=== PATIENT | male | born 1955 | race Caucasian/White ===

== ENCOUNTER 2020-02-19 12:05 | Emergency (ER) | payer MEDICARE, MEDICAID, SELFPAY ==
--- NOTE | ~2020-02-19 | XR_ITS ---
XR chest 1V portable DATE: 02/19/2020 23:04 INDICATION: Shortness of breath. History of COPD. TECHNIQUE: 2 portable AP views on 02/19/2020 at 2257 hours COMPARISON: None FINDINGS: Prominent hilar areas, likely due to prominent pulmonary arteries, suggesting pulmonary hyp ertension. Differential diagnosis includes hilar mass lesion or adenopathy. Comparison with prior [address] radiographs would be helpful; if not available, consider CT thorax. No pulmonary consolidation, pleural effusion, pulmonary vascular congestion or pneumothorax is eviden t. Diffuse osteopenia. IMPRESSION: Prominent edgard likely due to pulmonary artery hypertension; recommend comparison with jonah or chest radiographs or consider CT thorax examination to exclude any possible hilar mass lesion or l ymphadenopathy. Reviewed, dictated and finalized at location A. OYMENT TRAINER IMPRESSION: Prominent edgard likely due to pulmonary artery hypertension; recomme nd comparison with prior chest radiographs or consider CT thorax examination to exclude any possible hilar mass lesion or lymphadenopathy.
[2020-02-19 12:27] VITALS: BP 136/110; PULSE 94; RESP 18; TEMP 36.8; O2SAT 94
--- NOTE | 2020-02-19 12:35 | ED.PSYCH ---
HPI - Psych General Chief Complaint: Psychiatric Symptoms <Jada Florentino MD - Last Filed: 02/20/20 18:49> Stated Complaint: PSYCH <Jada Florentino MD - Last Filed: 02/20/20 18:49> Time Seen by Provider: 02/19/20 12:35 <Jada Florentino MD - Last Filed: 02/20/20 18:49> Source: patient and EMS <Jada Florentino MD - Last Filed: 02/20/20 18:49> Mode of arrival: EMS <Jada Florentino MD - Last Filed: 02/20/20 18:49> Limitations: no limitations <Jada Florentino MD - Last Filed: 02/20/20 18:49> History of Present Illness HPI Narrative: Patient is a 64-year-old gentleman with a history of longstanding mental illness, schizophrenia, bipolar disorder, depression, currently taking lithium, Klonopin, who presents for evaluation of suicidal ideation, auditory hallucinations. Patient has not been sleeping, reporting that he may take pills to kill himself. He states he is hearing satanic voices that are hateful, patient states he is God and has total authority. Patient has some insight into his mental illness, states he feels acutely psychotic. Patient is denying any headache, chest pain, abdominal pain or shortness of breath. No recent fever or chills. Per his sister who helps to care for him, he has been hospitalized many times since 1978 in various states for mental illness. He recently had his lithium dose decreased which is what seems to exacerbate his symptoms approximately a month ago. Patient follows with Andreea Cao at [facility] psychiatry. <Jada Florentino MD - Last Filed: 02/20/20 18:49> Related Data Home Medications: Home Medications Medication Instructions Recorded Confirmed Austedo 12 mg PO TID 02/19/20 02/21/20 amlodipine 5 mg PO DAILY 02/19/20 02/19/20 atorvastatin 20 mg PO DAILY 02/19/20 02/19/20 budesonide-formoterol [Symbicort] 2 puff INHALATION Q12H 02/19/20 02/19/20 clonazepam 1 mg PO HS 02/19/20 02/19/20 gabapentin 100 mg PO DAILY 02/19/20 02/19/20 icosapent ethyl [Vascepa] g PO 02/19/20 lisinopril 10 mg PO DAILY 02/19/20 02/19/20 lithium carbonate 300 mg PO HS 02/19/20 02/19/20 memantine-donepezil [Namzaric] 1 cap PO HS 02/19/20 02/19/20 quetiapine 50 mg PO HS 02/19/20 02/19/20 quetiapine 100 mg PO HS 02/19/20 02/19/20 sertraline 100 mg PO DAILY 02/19/20 02/19/20 sitagliptin [Januvia] 50 mg PO DAILY 02/19/20 02/19/20 tramadol 50 mg PO HS 02/19/20 02/19/20 varicella-zoster gE-AS01B (PF) IM 02/19/20 [Shingrix (PF)] zolpidem mg 02/19/20 <Jada Florentino MD - Last Filed: 02/20/20 18:49> Allergies/Adverse Reactions: Allergies Allergy/AdvReac Type Severity Reaction Status Date / Time codeine Allergy Headache Verified 02/19/20 14:03 <Jada Florentino MD - Last Filed: 02/20/20 18:49> Review of Systems Review of Systems: Narrative: CONSTITUTIONAL: Denies fever, chills, or sweats. EYES: Denies visual changes, redness, or discharge. ENT: Denies rhinorrhea, congestion, sore throat, or otalgia. CARDIOVASCULAR: Denies chest pain, palpitations, or edema. RESPIRATORY: Denies cough or dyspnea. GASTROINTESTINAL: Denies abdominal pain, nausea, vomiting, or diarrhea. GENITOURINARY: Denies dysuria or hematuria. SKIN: Denies rash or itching. MUSCULOSKELETAL: Denies back pain, joint pain, or myalgia. NEUROLOGIC: Denies headache, numbness, or weakness. PSYCHIATRIC: Reports anxiety, depression, auditory hallucinations, suicidal thoughts <Jada Florentino MD - Last Filed: 02/20/20 18:49> PMFSH Past Medical History Medical History: Medical History Anxiety Depression Diabetes Hypertension Schizophrenia <Jada Florentino MD - Last Filed: 02/20/20 18:49> Social History Social History: Social History (Updated 02/19/20 @ 13:00 by Jada Florentino MD) Smoking status: Never smoker Alcohol intake: never Substance use: never Gender identity (if verbalized by the susannah
--- NOTE | 2020-02-19 12:36 | ECG_ITS ---
Measurements Intervals [place] Rate: 85 P: 78 NC: 171 QRS: 256 QRSD: 173 T: 54 QT: 415 QTc: 494 Interpretive Statements SINUS RHYTHM RIGHT AXIS DEVIATION RIGHT BUNDLE BRANCH BLOCK ABNORMAL ECG Electronically Signed On 02-19-2020 13:34:51 LABOR AND DELIVERY NURSE by Cornelius Ace D.O.
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
[2020-02-19] MEDS: clonazePAM (*CRX) 0.5 MG TABLET 2 MG PO (13:20)
[2020-02-19 13:22] LABS: Basophils Absolute Auto 0.1 K/mm3 (0.0-0.1); Basophils Percent Auto 0.9 % (0.2-1.2); Eosinophils Absolute Auto 0.2 K/mm3 (0-0.3); Eosinophils Percent Auto 2.6 % (0-4.4); Hematocrit 45.3 % (42.0-52.0); Hemoglobin 14.8 g/dL (14.0-18.0); Immature Granulocyte Absolute 0.07 K/mm3 (0.00-0.031); Immature Granulocyte Percent A 0.8 % (0-0.5); Lymphocytes Absolute Auto 1.82 K/mm3 (0.9-3.2); Lymphocytes Percent Auto 20.1 % (18.3-44.2); Mean Corpuscular HGB Conc 32.7 g/dl (32-36); Mean Corpuscular Hemoglobin 30.4 pg (26-34); Mean Platelet Volume 9.2 fl (7.4-10.4); Monocytes Percent Auto 10.7 % (2.6-8.5); Neutrophils Absolute Auto 5.9 K/mm3 (1.3-6.7); Neutrophils Percent Auto 64.9 % (45.5-73.1); Platelet Count Result 203 k/mm3 (150-375); Red Blood Count 4.87 M/mm3 (4.6-6.20); Red Cell Distribution Width 13.7 % (11.5-14.5); White Blood Count 9.1 K/mm3 (4.5-10.0)
[2020-02-19 13:33] LABS: Potassium 4.4 mmol/L (3.4-5.0)
[2020-02-19 13:36] LABS: Add Urine Microscopic? NO; Appearance Urine Clear (Clear); Bilirubin Urine Negative (Negative); Blood Urine Negative (Negative); Color Urine Straw (Yellow); Glucose Urine UA Negative (Negative); Ketones Urine Negative (Negative); Leukocyte Esterase Ur Negative LEU/UL (Negative); Mucus Urine Rare /lpf; Nitrate Urine Negative (Negative); Protein Urine Negative (Negative); RBC Urine 0-2 /hpf (0-2); Squamous Epithelial Cell Urine Few /hpf (Few); Urobilinogen Urine Negative mg/dL (<2.0); WBC Urine 0-3 /hpf
[2020-02-19 13:38] LABS: Amphetamine Screen Urine Negative (Negative); Barbiturate Screen Urine Negative (Negative); Benzodiazepines Screen Urine Negative (Negative); Cannabinoid Screen Urine Positive (Negative); Cocaine Screen Urine Negative (Negative); Methadone Screen Urine Negative (Negative); Opiate Screen Urine Negative (Negative); Phencyclidine Screen Urine Negative (Negative)
--- NOTE | 2020-02-19 13:44 | PC.NURSE ---
Meal taken into pts room
[2020-02-19 13:46] LABS: Anion Gap 9 mmol/L (8-16); Blood Urea Nitrogen 30 mg/dL (9-20); Calcium 9.7 mg/dL (8.4-10.2); Carbon Dioxide 30 mmol/L (22-30); Chloride 101 mmol/L (98-107); Estimated CRCL calculation 62 ml/min; Estimated Glomerular Filt Rate 51; Glucose 100 mg/dL (75-110); Sodium 140 mmol/L (137-145)
--- NOTE | 2020-02-19 14:02 | PC.NURSE ---
PTs sister is Claudia Beltran. She would like to be updated on pt [phone]
[2020-02-19 14:06] LABS: Lithium < 0.2 mmol/L (0.6-1.2)
--- NOTE | 2020-02-19 14:18 | PC.NURSE ---
Pt complete 100% of lunch. Covid swabbed pt
[2020-02-19 14:28] LABS: Thyroid Stimulating Hormone 0.697 uIU/mL (0.465-4.680)
--- NOTE | 2020-02-19 15:33 | PC.NURSE ---
PTs primary care DrJose is Dr. Madera [phone]
--- NOTE | 2020-02-19 16:27 | PC.NURSE ---
Pt at door tearful stating that he doesnt know why he is here. Redirected pt and gave him a cup of water
--- NOTE | 2020-02-19 17:05 | PC.NURSE ---
Pt is medically cleared Crisis was called. Spoke with Flower
[2020-02-19] MEDS: NICOTINE (*PBKC) 21 MG PATCH 1 PATCH TRANSDERM (17:48)
--- NOTE | 2020-02-19 18:17 | PC.NURSE ---
Crisis here to see pt.
--- NOTE | 2020-02-19 18:21 | PC.NURSE ---
Pt at door telling RN they dont want me. The psych people dont want me. Can you call my sister and let her know i am in process for getting out. Crisis is here and states that was not said.
[2020-02-19] MEDS: ALBUTEROL SULFATE NEB 2.5 MG/0.5 ML INH 5 MG INHALATION ×2 (20:18→23:35)
[2020-02-19 20:19] VITALS: PULSE 92; RESP 20
[2020-02-19 20:28] VITALS: PULSE 98; RESP 22
--- NOTE | 2020-02-19 20:34 | PC.NURSE ---
spoke with patients sister at length on phone. she verbalized that she only wants patient placed in facility that is close to her [place] in [place], [place]. this nurse tried to explain that patient can only be sent to a [facility] hospital that has an open bed for an involuntary admission and that patient could not be taken outside of the [facility]. patients sister reports that he can not go to a hospital that is far from her home
[2020-02-19] MEDS: QUEtiapine FUMARATE 25 MG TABLET 150 MG PO (20:43)
--- NOTE | 2020-02-19 21:19 | PC.NURSE ---
Chart, petition, cert etc faxed to [facility].
[2020-02-19] MEDS: lisinopriL 10 MG TABLET PO (21:46)
[2020-02-19 21:49] VITALS: BP 163/84; PULSE 96; RESP 20; O2SAT 88
--- NOTE | 2020-02-19 21:59 | PC.NURSE ---
spoke with alejo at [facility] mental health intake. faxed requested paperwork. no beds at this time. patient is being placed on a wait list
[2020-02-19] MEDS: predniSONE 20 MG TABLET 60 MG PO (22:36)
[2020-02-19 23:36] VITALS: PULSE 88; RESP 20
[2020-02-19] MEDS: IPRATROPIUM BR 0.02% INH SOLN 0.5 MG/2.5 ML VIAL INHALATION (23:36)
[2020-02-19 23:44] VITALS: PULSE 90; RESP 20
[2020-02-20] VITALS (9 sets, daily range): BP systolic 112–157; BP diastolic 59–95; PULSE 78–89; RESP 20–22; O2SAT 92–95
[2020-02-20 00:14] LABS: Ethanol < 10 mg/dL (<10)
[2020-02-20 01:02] LABS: SARS-CoV-2 RNA PCR Negative
--- NOTE | 2020-02-20 02:32 | PC.NURSE ---
Allan Stock returned fax, requesting more information and wants COVID test results before proceeding with intake process.
[2020-02-20] MEDS: IPRATROPIUM BR 0.02% INH SOLN 0.5 MG/2.5 ML VIAL INHALATION ×2 (05:44→13:51)
[2020-02-20] MEDS: ALBUTEROL SULFATE NEB 2.5 MG/3 ML INH 1.25 MG INHALATION (05:45)
--- NOTE | 2020-02-20 10:11 | PC.NURSE ---
pt calling his sister isaak
[2020-02-20] MEDS: ALBUTEROL SULFATE NEB 2.5 MG/0.5 ML INH 5 MG INHALATION (13:51)
[2020-02-20] MEDS: clonazePAM (*CRX) 0.5 MG TABLET 1 MG PO (17:14)
[2020-02-20] MEDS: ALBUTEROL SULFATE NEB 2.5 MG/0.5 ML INH INHALATION (20:02)
[2020-02-20] MEDS: QUEtiapine FUMARATE 25 MG TABLET 50 MG PO (21:08)
[2020-02-20] MEDS: lisinopriL 10 MG TABLET PO (21:09)
[2020-02-20] MEDS: LITHIUM CARBONATE 300 MG CAPSULE PO (21:09)
--- NOTE | 2020-02-20 21:16 | PC.NURSE ---
[facility] advised no bed available.
--- NOTE | 2020-02-20 21:20 | PC.NURSE ---
called crisis and they advised the will keep look for a bed , and will advise
[2020-02-21 01:43] VITALS: BP 155/89; PULSE 82; RESP 20; O2SAT 95
--- NOTE | 2020-02-21 04:32 | PC.NURSE ---
lat entry fax to [facility] pending drJose see chart 0700, & then makes a decision on admitt.
[2020-02-21] MEDS: clonazePAM (*CRX) 0.5 MG TABLET 1 MG PO ×2 (04:43→18:50)
[2020-02-21 04:44] VITALS: BP 149/85; PULSE 84; RESP 20; O2SAT 94
[2020-02-21] MEDS: SERTRALINE HCL 50 MG TABLET 100 MG PO (08:41)
[2020-02-21] MEDS: MEMANTINE 5 MG TABLET PO (08:42)
[2020-02-21] MEDS: ATORVASTATIN 20 MG TABLET PO (08:42)
[2020-02-21] MEDS: amLODIPine BESYLATE 5 MG TABLET PO (08:42)
[2020-02-21 08:46] VITALS: BP 155/89; PULSE 73; RESP 18; O2SAT 95
[2020-02-21] MEDS: ALBUTEROL SULFATE (*SP) AEROSOL 1 PUFF 6 PUFF INHALATION ×3 (09:03→17:20)
--- NOTE | 2020-02-21 11:30 | PC.NURSE ---
Report received from LENNY Sanchez. This RN to continue care. Pt asleep on bed at present time.
--- NOTE | 2020-02-21 13:02 | PC.NURSE ---
Lunch tray given. Pt denies further needs at present.
--- NOTE | 2020-02-21 14:13 | PC.NURSE ---
Pt updated that are awaiting approval to go to [facility]. Pt denies needs at present, has gone to bathroom and changed his diaper. Pt noted to be singing, states I'm singing to get out of here and to get me psychiatric help. This place is making me worse keeping me in this box .
--- NOTE | 2020-02-21 17:41 | PC.NURSE ---
pt ambulatory to phone to speak with sister Laureen. Pt's sister is wishing to release the patient to her so she can take the patient to [facility] where she has secured a bed for the patient. Explained that we cannot release the patient to her but that I will contact Crisis and relay the information that pt is willing to go to [facility].
--- NOTE | 2020-02-21 17:45 | PC.NURSE ---
Call to Crisis, spoke to Kylah. Kylah made aware of what patient's sister had reported to this RN, that the patient is willing to go voluntarily to [facility] psych unit. Kylah reports that at this time they're still awaiting bed placement at [facility] after discharges in the am. Kylah states that she will attempt to contact [facility] and will let us know what transpires.
--- NOTE | 2020-02-21 19:28 | PC.NURSE ---
Crisis contacted, no answer. Message left on identifying voicemail that pt's petition at 1914 and that they need to come out and reevaluate. Report to LENNY Gurrola, to continue care.
--- NOTE | 2020-02-21 23:12 | PCRCNOTE ---
Window of time for administration has passed. See next scheduled administration.
[2020-02-22] MEDS: ALBUTEROL SULFATE (*SP) AEROSOL 1 PUFF 6 PUFF INHALATION ×2 (06:09→11:57)
--- NOTE | 2020-02-22 07:36 | PC.NURSE ---
Report received. Breakfast delivered to patient. Pt jovial, laughing intermittently, singing and humming to himself. Pt noted to have several pieces of paper around him, states God and I write each other. It helps when I can't get my words out .
[2020-02-22 07:44] VITALS: BP 161/98; PULSE 76; RESP 19; TEMP 36.3; O2SAT 97
[2020-02-22] MEDS: clonazePAM (*CRX) 0.5 MG TABLET 1 MG PO (07:49)
[2020-02-22] MEDS: SERTRALINE HCL 50 MG TABLET 100 MG PO (08:51)
[2020-02-22] MEDS: amLODIPine BESYLATE 5 MG TABLET PO (08:51)
[2020-02-22] MEDS: MEMANTINE 5 MG TABLET PO (08:52)
[2020-02-22] MEDS: ATORVASTATIN 20 MG TABLET PO (08:52)
--- NOTE | 2020-02-22 10:17 | PC.NURSE ---
Maria R from crisis states that the patient does not meet admission criteria at this time. Awaiting to hear from [facility]. Maria R preparing to contact pt's sibling Claudia regarding plan of care.
--- NOTE | 2020-02-22 10:49 | PC.NURSE ---
Maria R spoke with pt's sister for an extensive period and then into speak with the patient again. Awaiting also to hear from [facility] regarding bed availability.
--- NOTE | 2020-02-22 13:40 | PC.NURSE ---
Pt's sister here and pt and sister both agree to patient following up with Crisis services. Both the patient and the sister have the number.
== END 2020-02-22 13:54 | disposition home or self-care (01) ==
PROVIDERS: Emergency Medicine; Emergency Provider General Practice
DX: R45.851 Suicidal ideations (principal); F20.9 Schizophrenia, unspecified; F31.9 Bipolar disorder, unspecified; F41.9 Anxiety disorder, unspecified; I10 Essential (primary) hypertension; E11.9 Type 2 diabetes mellitus without complications; Z20.828 Contact with and (suspected) exposure to other viral communicable diseases; Z79.899 Other long term (current) drug therapy; I45.10 Unspecified right bundle-branch block
CPT/HCPCS: 36415; 71045; 80048; 80178; 80307; 81003; 84443; 85025; 87635; 93005; 94640; 99284; A9270; C9803; J7512; U0003

== ENCOUNTER 2020-05-25 12:18 | Outpatient (CLI) | payer MEDICARE, MEDICAID, SELFPAY ==
[2020-05-25 13:00] VITALS: PULSE 104; O2SAT 89
[2020-05-25 13:05] VITALS: PULSE 106; O2SAT 91
--- NOTE | 2020-05-25 13:39 | HOMEO2EVAL ---
Home Oxygen Evaluation RC: Home Oxygen (O2) Evaluation Start: 05/25/20 13:31 Freq: Status: Active Protocol: RPE Activity Type Activity Date Activity User E-Sign Co-Sign Detail Recorded Client Recorded Date Recorded By Document 05/25/20 13:00 DJO [id number] 05/25/20 13:36 DJO Document 05/25/20 13:05 DJO [id number] 05/25/20 13:36 DJO 05/25/20 05/25/20 13:00 13:05 Home O2 Evaluation Test Phase Resting Exercise Oxygen Delivery Nasal Cannula Nasal Cannula Oxygen Flow Rate (L/min) 2 2 Pulse Oximetry (90-100 %) 89 L 91 Pulse Rate (60-100 beats/min) 104 H 106 H Activity Tolerance Fair Rating of Perceived Dyspnea (PD) +2 Mild, Some Difficulty, Noticeable to the Observer Rate of Perceived Exertion (PE) 15 Hard Ambulation Distance (feet) 200 Home Oxygen Evaluation Comments Pt has established home O2 . uses 2lpm cont. Treatment Charges O2 Evaluation - Outpatient
== END 2020-05-25 12:19 | disposition home or self-care (01) ==
PROVIDERS: Visit Provider Internal Medicine Pulmonary Disease
DX: J44.9 Chronic obstructive pulmonary disease, unspecified (principal)
CPT/HCPCS: 94618

== ENCOUNTER → 2020-05-31 11:27 | Outpatient (CLI) | payer MEDICARE, MEDICAID, SELFPAY ==
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
== END ==
PROVIDERS: Visit Provider Internal Medicine Pulmonary Disease
DX: Z87.891 Personal history of nicotine dependence (principal)
CPT/HCPCS: 71271

== ENCOUNTER → 2020-06-01 01:32 | Outpatient (CLI) | payer MEDICARE, MEDICAID, SELFPAY ==
[2020-06-01 20:42] LABS: SARS-CoV-2 RNA PCR Negative
== END ==
PROVIDERS: Visit Provider Internal Medicine Critical Care Medicine
DX: Z01.812 Encounter for preprocedural laboratory examination (principal); Z20.822 Contact with and (suspected) exposure to COVID-19
CPT/HCPCS: C9803; U0003; U0005

== ENCOUNTER 2020-06-03 09:09 | Outpatient (CLI) | payer MEDICARE, MEDICAID, SELFPAY ==
--- NOTE | 2020-06-20 15:40 | WPDSLEEPSTUD ---
Sleep Study Date of Study: 06/03/20 Ordering Provider: Reynaldo Gómez MD Interpreting Physician: Popeye Amado MD Sleep Study Type: Split Polysomnogram Height: 1.75 m Weight: 133.356 kg Body Mass Index: 43.4 Neck Circumference (inches): 20 Gaffney: 0 Reason for Sleep Study The patient has prior diagnosis of sleep apnea and COPD. Patient was using BiPAP therapy along with supplemental oxygen. Patient had difficulty in placing the mask for BiPAP on his face and therefore discontinued use. Patient is being referred for repeat evaluation and treatment. Sleep History Patient's sleep history is unremarkable or possibly unreliable. Patient mentions being fatigued but denies any sleepiness. He reports an Gaffney scale of 0/24. [facility] Past Medical History Medical History Anxiety Depression Diabetes Hypertension Schizophrenia Family History Family History Mother Diabetes mellitus Social History Social History (Updated 05/26/20 @ 16:11 by Neha Morelos CMA) Smoking packs per day: 1 Smoking cigarettes per day: 20.0 Years smoked: 40 Smoking pack-years: 40.00 Smoking status: Former smoker Smoking end date: 04/21/15 Alcohol intake: never Substance use: never Additional occupation/education comments: [employer] Gender identity (if verbalized by the patient): Male Medications Home Medications Medication Instructions Recorded Confirmed Type Austedo 12 mg PO TID 02/19/20 02/21/20 History amlodipine 5 mg PO DAILY 02/19/20 02/19/20 History atorvastatin 20 mg PO DAILY 02/19/20 02/19/20 History budesonide-formoterol [Symbicort] 2 puff INHALATION Q12H 02/19/20 02/19/20 History clonazepam 1 mg PO HS 02/19/20 02/19/20 History gabapentin 100 mg PO DAILY 02/19/20 02/19/20 History icosapent ethyl [Vascepa] g PO 02/19/20 History lisinopril 10 mg PO DAILY 02/19/20 02/19/20 History lithium carbonate 300 mg PO HS 02/19/20 02/19/20 History memantine-donepezil [Namzaric] 1 cap PO HS 02/19/20 02/19/20 History quetiapine 50 mg PO HS 02/19/20 02/19/20 History sertraline 100 mg PO DAILY 02/19/20 02/19/20 History sitagliptin [Januvia] 50 mg PO DAILY 02/19/20 02/19/20 History tramadol 50 mg PO HS 02/19/20 02/19/20 History varicella-zoster gE-AS01B (PF) IM 02/19/20 History [Shingrix (PF)] zolpidem mg 02/19/20 History Sleep Procedure Patient underwent overnight polysomnographic study using a split night protocol. Sleep Architecture Diagnostic study- Total recording time 188 minutes, total sleep time 139 minutes, sleep efficiency 74.2%. Sleep latency 8 minutes and there was no REM sleep in diagnostic study. Awake after sleep onset 40 minutes stage N1 14.7%, N2 85.3%, stage N3 and stage R 0%. Treatment study - Total recording time 301 minutes, total sleep time 240 minutes, sleep efficiency 79.6%. Sleep latency 20 minutes, REM latency 63 minutes Awake after sleep onset 41 minutes, stage N1 7.3%, N2 76.5%, N3 0%, stage R 16 0.2% supine sleep 60.4%, supine REM sleep 4.1%. Respiratory Analysis CMS criteria used. In the diagnostic study patient did not have any apneas, there were 25 hypopneas with index 10.8. AHI 10.8 all events occurring in non-REM sleep and in nonsupine position. . Treatment study - during CPAP titration there was 1 central apnea with index 0.2, there were no hypopneas. AHI 0.2 supine index 0.4 nonsupine index 0. Non-REM index 0.5, REM index is 0. Arousals Diagnostic study - total arousals 123 with index 39.3. Spontaneous arousals 52, limb movement arousals 47 snores arousal 20 and hypopnea arousals 4. Treatment study- total arousals 48 with index 9.6. Spontaneous arousals 38 ,limb movements arousals 9, snores arousal 1. Periodic Limb Movements Diagnostic study- leg movements 363 with index 156, PLM.s 14with index 6. Treatment study -leg movement
[2020-06-21 08:43] VITALS: BMI 43.4
== END 2020-06-03 09:10 | disposition home or self-care (01) ==
LOC: ANHCSM 09:09
PROVIDERS: Visit Provider Internal Medicine Pulmonary Disease
DX: G47.33 Obstructive sleep apnea (adult) (pediatric) (principal)
CPT/HCPCS: 95811

== ENCOUNTER → 2020-07-12 08:02 | Outpatient (CLI) | payer MEDICARE, MEDICAID, SELFPAY ==
--- NOTE | ~2020-07-12 | US_ITS ---
EXAMINATION: US thyroid DATE: 07/12/2020 08:27 INDICATION: Nontoxic single thyroid nodule. TECHNIQUE: Multiple ultrasound images of the thyroid were obtained. COMPARISON: Chest CT 05/31/2020 FINDINGS: The right thyroid lobe measures 6.0 x 2.2 x 2.6 cm. The left thyroid lobe measures 4.4 x 2.1 x 2.0 c m. In the left thyroid lobe, there is a 1.8 cm solid, hyperechoic, [id number]-begt-enms nodule with lobul ar margin without echogenic foci (TI-RADS TR4). In the right thyroid lobe, there is a 2.3 cm solid, h ypoechoic, [id number]-arpd-ocdp nodule with lobulated margin and peripheral calcifications (TR5). IMPRESSION: 1. Two thyroid nodules. Ultrasound-guided fine-needle aspiration of both nodules is recommended. Reviewed, dictated and finalized at location A. IMPRESSION: 1. Two thyroid nodules. Ultrasound-guided fine-needle aspiration of both nodule s is recommended.
== END ==
PROVIDERS: Visit Provider Nurse Practitioner Family
DX: E04.2 Nontoxic multinodular goiter (principal)
CPT/HCPCS: 76536

== ENCOUNTER 2020-08-04 12:50 | Outpatient (CLI) | payer MEDICARE, MEDICAID, SELFPAY ==
--- NOTE | ~2020-08-04 | US_ITS ---
EXAMINATION: 1. US FNA w image guidance 2. US FNA additional DATE: 08/04/2020 14:40 INDICATION: Bilateral thyroid nodules. TECHNIQUE: The procedure and its benefits and risks were discussed with the patient. Risks specifically discusse d included bleeding. The patient verbalized understanding of the risks and agreed to proceed. The nec k was prepped and draped in the usual sterile manner. 1% lidocaine was used for local anesthesia. 5 passes were made with a 25G needle into the lesion in right thyroid lobe under ultrasound guidance. 5 passes were made with a 25-gauge needle into the lesion in left thyroid lobe under ultrasound earl nce. There were no immediate complications. The patient understood to call the ordering physician for results after a week and a half and verbalized that understanding. FINDINGS: Grayscale ultrasound images demonstrate needles advanced into a 2.3 cm nodule in right thyroid lobe f or biopsy. Grayscale ultrasound images demonstrate needles advanced into a 1.8 cm nodule in left thyr oid lobe. IMPRESSION: 1. Ultrasound-guided fine needle aspiration of a right thyroid nodule. 2. Ultrasound-guided fine-needle aspiration of a left thyroid nodule. Reviewed, dictated and finalized at location A. IMPRESSION: 1. Ultrasound-guided fine needle aspiration of a right thyroid nodule. 2. Ultrasound-guided fine-needle aspiration of a left thyroid nodule.
== END 2020-08-04 12:51 | disposition home or self-care (01) ==
PROVIDERS: Visit Provider Nurse Practitioner Family
DX: E04.2 Nontoxic multinodular goiter (principal)
CPT/HCPCS: 10005; 10006; 88173; 88305

== ENCOUNTER 2020-12-22 12:02 | Outpatient (CLI) | payer MEDICARE, MEDICAID, SELFPAY ==
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
== END 2020-12-22 12:03 | disposition home or self-care (01) ==
PROVIDERS: PCP Family Medicine; Visit Provider Family Medicine
DX: M25.572 Pain in left ankle and joints of left foot (principal); M79.89 Other specified soft tissue disorders
CPT/HCPCS: 73610

== ENCOUNTER 2021-01-03 09:22 | Outpatient (CLI) | payer MEDICARE, MEDICAID, SELFPAY ==
[2021-01-03 19:48] LABS: Basophils Absolute Auto 0.1 K/mm3 (0.0-0.1); Basophils Percent Auto 0.7 % (0.2-1.2); Eosinophils Absolute Auto 0.2 K/mm3 (0-0.3); Eosinophils Percent Auto 2.7 % (0-4.4); Hematocrit 46.4 % (42.0-52.0); Hemoglobin 14.7 g/dL (14.0-18.0); Immature Granulocyte Absolute 0.07 K/mm3 (0.00-0.031); Immature Granulocyte Percent A 0.8 % (0-0.5); Lymphocytes Absolute Auto 1.42 K/mm3 (0.9-3.2); Lymphocytes Percent Auto 17.2 % (18.3-44.2); Mean Corpuscular HGB Conc 31.7 g/dl (32-36); Mean Corpuscular Hemoglobin 30.4 pg (26-34); Mean Corpuscular Volume 96.1 fl (80-100); Mean Platelet Volume 9.8 fl (7.4-10.4); Monocytes Absolute Auto 0.7 K/mm3 (0.1-0.6); Monocytes Percent Auto 8.6 % (2.6-8.5); Neutrophils Absolute Auto 5.8 K/mm3 (1.3-6.7); Platelet Count Result 178 k/mm3 (150-375); Red Blood Count 4.83 M/mm3 (4.6-6.20); Red Cell Distribution Width 13.5 % (11.5-14.5); White Blood Count 8.3 K/mm3 (4.5-10.0)
[2021-01-03 20:26] LABS: Alanine Aminotransferase 23 U/L (4-50); Albumin Level 4.7 g/dL (3.5-5.1); Alkaline Phosphatase 55 U/L (38-126); Anion Gap 7 mmol/L (8-16); Aspartate Amino Transferase 26 U/L (17-59); Bilirubin,Total 0.7 mg/dL (0.2-1.3); Blood Urea Nitrogen 27 mg/dL (9-20); Calcium 10.6 mg/dL (8.4-10.2); Carbon Dioxide 31 mmol/L (22-30); Chloride 100 mmol/L (98-107); Cholesterol 141 mg/dL (0-200); Estimated Glomerular Filt Rate 47; Glucose 92 mg/dL (65-110); HDL Direct 59 mg/dL; Potassium 4.9 mmol/L (3.4-5.0); Sodium 138 mmol/L (137-145); Triglycerides 122 mg/dL (<150)
[2021-01-03 20:34] LABS: Creatinine Urine 22.2 mg/dL
[2021-01-03 20:36] LABS: LDL Cholesterol Direct 60 mg/dL
[2021-01-03 20:44] LABS: Hemoglobin A1C 5.1 % (<5.7)
[2021-01-03 20:51] LABS: MALB Creatinine Ratio < 27.0 mg/g (0-30); Microalbumin Urine Random < 6.0 mg/L (0-16.7)
[2021-01-03 20:57] LABS: Prostate Specific Antigen 1.2 ng/mL (< OR = 4.0)
[2021-01-03 21:32] LABS: Folic Acid 13.5 ng/mL (2.76->20)
[2021-01-04 10:45] LABS: Vitamin D 25 Hydroxy 39.2 ng/mL
== END 2021-01-03 09:23 | disposition home or self-care (01) ==
PROVIDERS: PCP Family Medicine; Visit Provider Nurse Practitioner Psychiatric/Mental Health
DX: E23.2 Diabetes insipidus (principal); F25.0 Schizoaffective disorder, bipolar type; F41.1 Generalized anxiety disorder; I10 Essential (primary) hypertension; E78.5 Hyperlipidemia, unspecified; G24.01 Drug induced subacute dyskinesia; E66.9 Obesity, unspecified; F51.01 Primary insomnia; E78.49 Other hyperlipidemia; Z12.5 Encounter for screening for malignant neoplasm of prostate; E11.9 Type 2 diabetes mellitus without complications; E55.9 Vitamin D deficiency, unspecified; Z79.899 Other long term (current) drug therapy
CPT/HCPCS: 36415; 80053; 80061; 80178; 82043; 82306; 82746; 83036; 84153; 84443; 85025; G0103

== ENCOUNTER 2021-01-17 08:29 | Outpatient (CLI) | payer MEDICARE, MEDICAID, SELFPAY ==
[2021-01-27 09:08] LABS: Amphetamines Negative; pH 6.5
[2021-01-27 09:09] LABS: Barbiturates NEGATIVE; Benzodiazepines NEGATIVE; Oxidant NEGATIVE
[2021-01-27 09:10] LABS: Cocaine Metabolite NEGATIVE; Marijuana Metabolite POSITIVE; Methadone NEGATIVE
[2021-01-27 09:11] LABS: Opiates NEGATIVE
== END 2021-01-17 08:30 | disposition home or self-care (01) ==
PROVIDERS: PCP Family Medicine; Visit Provider Family Medicine
DX: G89.4 Chronic pain syndrome (principal)
CPT/HCPCS: 80299

== ENCOUNTER 2021-03-28 09:24 | Outpatient (CLI) | payer MEDICARE, MEDICAID, SELFPAY ==
[2021-03-28 20:40] LABS: Anion Gap 8 mmol/L (8-16); Blood Urea Nitrogen 28 mg/dL (9-20); Calcium 9.8 mg/dL (8.4-10.2); Carbon Dioxide 28 mmol/L (22-30); Chloride 101 mmol/L (98-107); Estimated Glomerular Filt Rate 38; Glucose 91 mg/dL (65-110); Potassium 4.7 mmol/L (3.4-5.0); Sodium 137 mmol/L (137-145)
== END 2021-03-28 09:25 | disposition home or self-care (01) ==
PROVIDERS: PCP Family Medicine; Visit Provider Family Medicine
DX: N18.9 Chronic kidney disease, unspecified (principal); E83.52 Hypercalcemia; Z79.899 Other long term (current) drug therapy
CPT/HCPCS: 36415; 80048

== ENCOUNTER 2021-05-05 10:51 | Outpatient (CLI) | payer MEDICARE, MEDICAID, SELFPAY ==
--- NOTE | ~2021-05-05 | US_ITS ---
EXAMINATION: US renal BI EXAM DATE: 05/05/2021 11:24 INDICATION: Hypertension, diabetes type II, nephropathy CKD,HTN. TECHNIQUE: Multiple grayscale and Doppler images of the kidneys were obtained (by a technologist who performed the scan) and subsequently reviewed. There is no prior study for comparison. FINDINGS: Right kidney: There is normal contour and echogenicity. It measures 11.8 x 5.7 x 6.0 centimeters. Se veral cysts up to 2.1 cm. There is no hydronephrosis. Left kidney: There is normal contour and echogenicity. It measures 12.1 x 4.0 x 5.7 centimeters. Sev eral cysts, up to 1.6 cm. There is no hydronephrosis. Bladder unremarkable. IMPRESSION: Renal cysts. No hydronephrosis. Reviewed, dictated and finalized at location A. DING PERFORMANCE SPECIALIST
== END 2021-05-05 10:52 | disposition home or self-care (01) ==
LOC: ANHIMG 10:54
PROVIDERS: PCP Family Medicine; Visit Provider Internal Medicine Nephrology
DX: I12.9 Hypertensive chronic kidney disease with stage 1 through stage 4 chronic kidney disease, or unspecified chronic kidney disease (principal); E11.21 Type 2 diabetes mellitus with diabetic nephropathy; N18.32 Chronic kidney disease, stage 3b; N28.1 Cyst of kidney, acquired
CPT/HCPCS: 76775

== ENCOUNTER 2021-05-08 08:58 | Outpatient (CLI) | payer MEDICARE, MEDICAID, SELFPAY ==
[2021-05-08 10:11] LABS: Basophils Absolute Auto 0.1 K/mm3 (0.0-0.1); Basophils Percent Auto 0.9 % (0.2-1.2); Eosinophils Absolute Auto 0.2 K/mm3 (0-0.3); Eosinophils Percent Auto 3.1 % (0-4.4); Hematocrit 42.7 % (42.0-52.0); Hemoglobin 14.3 g/dL (14.0-18.0); Immature Granulocyte Absolute 0.04 K/mm3 (0.00-0.031); Immature Granulocyte Percent A 0.5 % (0-0.5); Lymphocytes Absolute Auto 1.24 K/mm3 (0.9-3.2); Lymphocytes Percent Auto 16.7 % (18.3-44.2); Mean Corpuscular HGB Conc 33.5 g/dl (32-36); Mean Corpuscular Hemoglobin 31.4 pg (26-34); Mean Corpuscular Volume 93.6 fl (80-100); Mean Platelet Volume 9.5 fl (7.4-10.4); Monocytes Absolute Auto 0.6 K/mm3 (0.1-0.6); Monocytes Percent Auto 8.1 % (2.6-8.5); Neutrophils Absolute Auto 5.3 K/mm3 (1.3-6.7); Neutrophils Percent Auto 70.7 % (45.5-73.1); Platelet Count Result 152 k/mm3 (150-375); Red Blood Count 4.56 M/mm3 (4.6-6.20); Red Cell Distribution Width 13.2 % (11.5-14.5); White Blood Count 7.4 K/mm3 (4.5-10.0)
[2021-05-08 10:20] LABS: Add Urine Microscopic? NO; Appearance Urine Clear (Clear); Bilirubin Urine Negative (Negative); Blood Urine Negative (Negative); Color Urine Straw (Yellow); Creatinine Urine 19.7 mg/dL; Glucose Urine UA Negative (Negative); Ketones Urine Negative (Negative); Leukocyte Esterase Ur Negative LEU/UL (NEGATIVE); Nitrate Urine Negative (Negative); Protein Urine Negative (Negative); Total Protein Urine Random 15 mg/dL; Ur Ttl Prot Creatinine Ratio 0.76 mg/mg (0-0.20); Urobilinogen Urine Negative mg/dL (<2.0)
[2021-05-08 10:25] LABS: Alanine Aminotransferase 15 U/L (4-50); Albumin Level 4.2 g/dL (3.5-5.1); Alkaline Phosphatase 64 U/L (38-126); Anion Gap 6 mmol/L (8-16); Aspartate Amino Transferase 22 U/L (17-59); Bilirubin,Total 0.4 mg/dL (0.2-1.3); Blood Urea Nitrogen 17 mg/dL (9-20); Calcium 9.3 mg/dL (8.4-10.2); Carbon Dioxide 27 mmol/L (22-30); Chloride 104 mmol/L (98-107); Estimated Glomerular Filt Rate 43; Glucose 111 mg/dL (65-110); Phosphorus 4.2 mg/dL (2.5-4.5); Potassium 4.2 mmol/L (3.4-5.0); Sodium 137 mmol/L (137-145)
[2021-05-08 10:29] LABS: Creatinine Urine 31.5 mg/dL
[2021-05-08 10:33] LABS: Parathyroid Intact 72.5 pg/mL (7.5-53.5)
[2021-05-08 10:47] LABS: Lithium 0.4 mmol/L (0.6-1.2)
[2021-05-08 10:59] LABS: Specific Grav Ur 1.002 (1.001-1.035)
[2021-05-08 11:06] LABS: Creatinine 24 Hour Urine 1.2 gm/24 (1.0-2.0); Total Volume 24 Hour Urine 4100 ml
== END 2021-05-08 08:59 | disposition home or self-care (01) ==
PROVIDERS: PCP Family Medicine; Visit Provider Internal Medicine Nephrology
DX: E11.22 Type 2 diabetes mellitus with diabetic chronic kidney disease (principal); I12.9 Hypertensive chronic kidney disease with stage 1 through stage 4 chronic kidney disease, or unspecified chronic kidney disease; N18.32 Chronic kidney disease, stage 3b
CPT/HCPCS: 36415; 80069; 80076; 80178; 81003; 81050; 82570; 83970; 84156; 85025

== ENCOUNTER 2021-07-06 07:49 | Outpatient (CLI) | payer MEDICARE, MEDICAID, SELFPAY ==
--- NOTE | ~2021-07-06 | CT_ITS ---
EXAMINATION: CT lung screening EXAM DATE: 07/06/2021 08:07 INDICATION: Z87.891 - Personal history of nicotine dependence TECHNIQUE: Spiral low dose CT of the chest without contrast. Axial, coronal and sagittal images were reviewed. The dose-length product (DLP) for this examination was 399.77 mGy-cm. The exposure was t ailored according to patient size (auto mA exposure control), and iterative reconstruction (ASIR) was used as additional dose reduction technique. 05/31/2020 FINDINGS: Small amount of bibasilar linear opacity appearance most consistent with linear atelectasi s or scarring, unchanged. No suspicious nodules. Mild to moderate emphysema and hyperinflation. Trach eobronchial tree is patent. There is no mediastinal, hilar or axillary lymphadenopathy. There are no pleural or pericardial effusions. There is no pneumothorax. Heart normal in size. There is mild coronary arterial calcification, arterial sclerosis. Upper abdomen is unremarkable. Subacute co mpression fracture of L1 with mild to moderate loss of this height anteriorly, sclerosis indicating h ealing response. The vertebral body and disc heights are otherwise well maintained. Bilateral gynecom astia. There is thoracic spondylosis without osteoblastic or osteolytic lesions identified. IMPRESSION: Lung-RADS category 1, negative (<1%chance of malignancy); recommend continued LDCT screen ing in 1 year. Reviewed, dictated and finalized at location B. IMPRESSION: Lung-RADS category 1, negative (<1%chance of malignancy); recommend continued LDCT screening in 1 year.
== END 2021-07-06 07:50 | disposition home or self-care (01) ==
LOC: ANHIMG 07:52
PROVIDERS: PCP Family Medicine; Visit Provider Physician Assistant
DX: Z12.2 Encounter for screening for malignant neoplasm of respiratory organs (principal); Z87.891 Personal history of nicotine dependence
CPT/HCPCS: 71271

== ENCOUNTER 2021-08-03 12:17 | Outpatient (CLI) | payer MEDICARE, MEDICAID, SELFPAY ==
[2021-08-03 13:00] VITALS: O2SAT 87
[2021-08-03 13:01] VITALS: PULSE 82; O2SAT 90
[2021-08-03 13:03] VITALS: PULSE 98; O2SAT 87
[2021-08-03 13:04] VITALS: PULSE 99; O2SAT 87
[2021-08-03 13:06] VITALS: PULSE 96; O2SAT 90
[2021-08-03 13:15] VITALS: PULSE 88; O2SAT 92
--- NOTE | 2021-08-03 14:24 | HOMEO2EVAL ---
Evaluation was performed at [facility] Home Oxygen Evaluation RC: Home Oxygen (O2) Evaluation Start: 08/03/21 14:21 Freq: Status: Active Protocol: RPE Activity Type Activity Date Activity User E-Sign Co-Sign Detail Recorded Client Recorded Date Recorded By Document 08/03/21 13:00 [email or web address] [email or web address] 08/03/21 14:24 DJO Document 08/03/21 13:01 [email or web address] 08/03/21 14:24 DJO Document 08/03/21 13:03 [email or web address] [email or web address] 08/03/21 14:24 DJO Document 08/03/21 13:04 [email or web address] 08/03/21 14:24 DJO Document 08/03/21 13:06 [email or web address] [email or web address] 08/03/21 14:24 DJO Document 08/03/21 13:15 [email or web address] [email or web address] 08/03/21 14:24 DJO 08/03/21 08/03/21 08/03/21 13:00 13:01 13:03 Home O2 Evaluation Test Phase Resting Resting Exercise Oxygen Delivery Room Air Nasal Cannula Nasal Cannula Oxygen Flow Rate (L/min) 1 1 Pulse Oximetry (90-100 %) 87 L 90 87 L Pulse Rate (60-100 beats/min) 82 98 Home Oxygen Evaluation Comments Treatment Charges O2 Evaluation - Outpatient 08/03/21 08/03/21 08/03/21 13:04 13:06 13:15 Home O2 Evaluation Test Phase Exercise Exercise Resting Oxygen Delivery Nasal Cannula Nasal Cannula Nasal Cannula Oxygen Flow Rate (L/min) 2 3 1 Pulse Oximetry (90-100 %) 87 L 90 92 Pulse Rate (60-100 beats/min) 99 96 88 Home Oxygen Evaluation Comments PT REQUIRES 1 L AT REST AND 3 L WITH ACTIVITY Treatment Charges
--- NOTE | 2021-08-03 14:25 | PCRCNOTE ---
FAXED HOME O2 EVAL TO OFFICE STAFF
== END 2021-08-03 12:18 | disposition home or self-care (01) ==
LOC: ANHPFT 12:18
PROVIDERS: PCP Family Medicine; Visit Provider Physician Assistant
DX: J96.11 Chronic respiratory failure with hypoxia (principal)
CPT/HCPCS: 94618

== ENCOUNTER 2021-12-14 09:18 | Outpatient (CLI) | payer MEDICARE, MEDICAID, SELFPAY ==
[2021-12-14 19:05] LABS: Basophils Absolute Auto 0.1 K/mm3 (0.0-0.1); Basophils Percent Auto 1.2 % (0.2-1.2); Eosinophils Absolute Auto 0.2 K/mm3 (0-0.3); Eosinophils Percent Auto 2.9 % (0-4.4); Hematocrit 49.7 % (42.0-52.0); Hemoglobin 15.5 g/dL (14.0-18.0); Immature Granulocyte Absolute 0.05 K/mm3 (0.00-0.031); Immature Granulocyte Percent A 0.7 % (0-0.5); Lymphocytes Percent Auto 25.2 % (18.3-44.2); Mean Corpuscular HGB Conc 31.2 g/dl (32-36); Mean Corpuscular Hemoglobin 30.2 pg (26-34); Mean Corpuscular Volume 96.9 fl (80-100); Monocytes Absolute Auto 0.8 K/mm3 (0.1-0.6); Monocytes Percent Auto 10.9 % (2.6-8.5); Neutrophils Absolute Auto 4.5 K/mm3 (1.3-6.7); Neutrophils Percent Auto 59.1 % (45.5-73.1); Platelet Count Result 166 k/mm3 (150-375); Red Blood Count 5.13 M/mm3 (4.6-6.20); Red Cell Distribution Width 13.5 % (11.5-14.5); White Blood Count 7.5 K/mm3 (4.5-10.0)
[2021-12-14 19:46] LABS: Alanine Aminotransferase 19 U/L (6-50); Albumin Level 4.1 g/dL (3.5-5.1); Alkaline Phosphatase 65 U/L (38-126); Anion Gap 8 mmol/L (8-16); Aspartate Amino Transferase 38 U/L (17-59); Bilirubin,Total 0.4 mg/dL (0.2-1.3); Blood Urea Nitrogen 16 mg/dL (9-20); Calcium 9.3 mg/dL (8.4-10.2); Carbon Dioxide 32 mmol/L (22-30); Chloride 103 mmol/L (98-107); Cholesterol 141 mg/dL (0-200); Estimated Glomerular Filt Rate 55; Glucose 63 mg/dL (65-110); HDL Direct 46 mg/dL; Potassium 4.1 mmol/L (3.4-5.0); Sodium 143 mmol/L (137-145); Triglycerides 121 mg/dL (<150)
[2021-12-14 19:57] LABS: LDL Cholesterol Direct 53 mg/dL
[2021-12-14 20:01] LABS: Parathyroid Intact 86.1 pg/mL (7.5-53.5)
[2021-12-14 20:28] LABS: Albumin Level 4.2 g/dL (3.5-5.1); Anion Gap 13 mmol/L (8-16); Blood Urea Nitrogen 15 mg/dL (9-20); Calcium 8.9 mg/dL (8.4-10.2); Carbon Dioxide 32 mmol/L (22-30); Chloride 99 mmol/L (98-107); Estimated Glomerular Filt Rate 55; Glucose 60 mg/dL (65-110); Phosphorus 3.6 mg/dL (2.5-4.5); Potassium 4.2 mmol/L (3.4-5.0); Sodium 144 mmol/L (137-145)
[2021-12-14 21:10] LABS: Creatinine Urine 30.8 mg/dL
[2021-12-14 21:15] LABS: MALB Creatinine Ratio 27.6 mg/g (0-30); Microalbumin Urine Random 8.5 mg/L (0-16.7)
[2021-12-14 21:33] LABS: Hemoglobin A1C 5.2 % (<5.7)
== END 2021-12-14 09:19 | disposition home or self-care (01) ==
PROVIDERS: PCP Family Medicine; Visit Provider Internal Medicine Nephrology
DX: E11.21 Type 2 diabetes mellitus with diabetic nephropathy (principal); N25.81 Secondary hyperparathyroidism of renal origin; I12.9 Hypertensive chronic kidney disease with stage 1 through stage 4 chronic kidney disease, or unspecified chronic kidney disease; E11.22 Type 2 diabetes mellitus with diabetic chronic kidney disease; N18.32 Chronic kidney disease, stage 3b
CPT/HCPCS: 36415; 80053; 80061; 80069; 82043; 83036; 83970; 85025

== ENCOUNTER 2022-06-13 08:46 | Outpatient (CLI) | payer MEDICARE, MEDICAID, SELFPAY ==
[2022-06-13 17:42] LABS: Basophils Absolute Auto 0.1 K/mm3 (0.0-0.1); Eosinophils Absolute Auto 0.2 K/mm3 (0-0.3); Eosinophils Percent Auto 2.5 % (0-4.4); Hematocrit 44.3 % (42.0-52.0); Hemoglobin 13.9 g/dL (14.0-18.0); Immature Granulocyte Absolute 0.03 K/mm3 (0.00-0.031); Immature Granulocyte Percent A 0.5 % (0-0.5); Immature Platelet Fraction Pct 2.8 % (0.9-11.2); Lymphocytes Absolute Auto 1.49 K/mm3 (0.9-3.2); Lymphocytes Percent Auto 24.8 % (18.3-44.2); Mean Corpuscular HGB Conc 31.4 g/dl (32-36); Mean Corpuscular Hemoglobin 30.3 pg (26-34); Mean Corpuscular Volume 96.7 fl (80-100); Mean Platelet Volume 10.1 fl (7.4-10.4); Monocytes Absolute Auto 0.6 K/mm3 (0.1-0.6); Monocytes Percent Auto 9.5 % (2.6-8.5); Neutrophils Absolute Auto 3.7 K/mm3 (1.3-6.7); Neutrophils Percent Auto 61.7 % (45.5-73.1); Platelet Count Result 143 k/mm3 (150-375); Red Blood Count 4.58 M/mm3 (4.6-6.20); Red Cell Distribution Width 12.9 % (11.5-14.5)
[2022-06-13 18:21] LABS: LDL Cholesterol Direct 49 mg/dL
[2022-06-13 18:32] LABS: Alanine Aminotransferase 18 U/L (6-50); Alkaline Phosphatase 60 U/L (38-126); Anion Gap 2 mmol/L (8-16); Aspartate Amino Transferase 32 U/L (17-59); Bilirubin,Total 0.6 mg/dL (0.2-1.3); Blood Urea Nitrogen 14 mg/dL (9-20); Calcium 9.1 mg/dL (8.4-10.2); Carbon Dioxide 34 mmol/L (22-30); Chloride 102 mmol/L (98-107); Cholesterol 117 mg/dL (0-200); Estimated Glomerular Filt Rate 55; Glucose 57 mg/dL (65-110); HDL Direct 44 mg/dL; Potassium 4.7 mmol/L (3.4-5.0); Sodium 138 mmol/L (137-145); Triglycerides 83 mg/dL (<150)
[2022-06-13 19:31] LABS: Hemoglobin A1C 5.2 % (<5.7)
[2022-06-13 20:00] LABS: MALB Creatinine Ratio < 25.0 mg/g (0-30); Microalbumin Urine Random < 6.0 mg/L (0-16.7)
== END 2022-06-13 08:47 | disposition home or self-care (01) ==
PROVIDERS: PCP Family Medicine; Visit Provider Family Medicine
DX: E83.52 Hypercalcemia (principal); J44.9 Chronic obstructive pulmonary disease, unspecified; N18.9 Chronic kidney disease, unspecified; E11.9 Type 2 diabetes mellitus without complications
CPT/HCPCS: 36415; 80053; 80061; 82043; 83036; 85025; 85055

== ENCOUNTER 2022-07-09 09:43 | Outpatient (CLI) | payer MEDICARE, MEDICAID, SELFPAY ==
--- NOTE | ~2022-07-09 | CT_ITS ---
EXAMINATION: CT lung screening DATE: 07/09/2022 10:05 INDICATION: Personal history nicotine dependence, current smoker with 60 pack year history TECHNIQUE: Computed tomography (CT) of the chest was performed without intravenous contrast. The dose -length product (DLP) was 342.88 mGy-cm. 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 COMPARISON: 07/06/2021 FINDINGS: There is a 7 mm nodule in the left lower lobe. This may have been present on prior examinat ions however atelectasis and motion artifact in this area limit comparison. There is mild emphysema. No pleural effusion or pneumothorax. No pathologically enlarged thoracic lymph nodes are identified. The heart size is normal. There is moderate bilateral gynecomastia. Stones are present in the nondist ended gallbladder. There is a chronic L1 burst fracture. IMPRESSION: 1. Lung-RADS category 3: Probably benign. Followup with noncontrast low-dose chest CT in 6 months is recommended. Reviewed, dictated and finalized at location B. IMPRESSION: 1. Lung-RADS category 3: Probably benign. Followup with noncontrast low-dose est CT in 6 months is recommended.
== END 2022-07-09 09:44 | disposition home or self-care (01) ==
PROVIDERS: PCP Family Medicine; Visit Provider Physician Assistant
DX: Z12.2 Encounter for screening for malignant neoplasm of respiratory organs (principal); F17.210 Nicotine dependence, cigarettes, uncomplicated; R91.8 Other nonspecific abnormal finding of lung field
CPT/HCPCS: 71271

== ENCOUNTER 2022-08-01 07:40 | Outpatient (CLI) | payer MEDICARE, MEDICAID, SELFPAY ==
[2022-08-01 07:45] VITALS: PULSE 84; O2SAT 87
[2022-08-01 07:50] VITALS: PULSE 78; O2SAT 91
[2022-08-01 07:55] VITALS: PULSE 100; O2SAT 86
[2022-08-01 08:00] VITALS: PULSE 101; O2SAT 88
[2022-08-01 08:05] VITALS: PULSE 102; O2SAT 91
[2022-08-01 08:15] VITALS: PULSE 80; O2SAT 91
--- NOTE | 2022-08-01 08:37 | HOMEO2EVAL ---
Evaluation was performed at [facility] Home Oxygen Evaluation RC: Home Oxygen (O2) Evaluation Start: 08/01/22 08:31 Freq: Status: Active Protocol: RPE Activity Type Activity Date Activity User E-sign Co-sign Detail Recorded Client Recorded Date Recorded By Document 08/01/22 07:45 [email or web address] [email or web address] 08/01/22 08:37 DJO Document 08/01/22 07:50 [email or web address] [email or web address] 08/01/22 08:37 DJO Document 08/01/22 07:55 [email or web address] [email or web address] 08/01/22 08:37 DJO Document 08/01/22 08:00 [email or web address] [email or web address] 08/01/22 08:37 DJO Document 08/01/22 08:05 [email or web address] [email or web address] 08/01/22 08:37 DJO Document 08/01/22 08:15 [email or web address] [email or web address] 08/01/22 08:37 DJO 08/01/22 08/01/22 08/01/22 07:45 07:50 07:55 Home O2 Evaluation [Oxygen] -Test Phase Resting Resting Exercise -Oxygen Delivery Room Air Nasal Cannula Nasal Cannula -Oxygen Flow Rate (L/min) 1 1 [Pulse Oximetry] -Pulse Oximetry (90-100 %) 87 L 91 86 L [Pulse Rate] -Pulse Rate (60-100 beats/min) 84 78 100 [Evaluation] -Activity Tolerance [Exercise] -Ambulation Distance (feet) -Ambulation Distance (meters) [Charges] -Treatment Charges O2 Evaluation - Outpatient 08/01/22 08/01/22 08/01/22 08:00 08:05 08:15 Home O2 Evaluation [Oxygen] -Test Phase Exercise Exercise Resting -Oxygen Delivery Nasal Cannula Nasal Cannula Nasal Cannula -Oxygen Flow Rate (L/min) 2 3 1 [Pulse Oximetry] -Pulse Oximetry (90-100 %) 88 L 91 91 [Pulse Rate] -Pulse Rate (60-100 beats/min) 101 H 102 H 80 [Evaluation] -Activity Tolerance Fair [Exercise] -Ambulation Distance (feet) 325 -Ambulation Distance (meters) 99.05 [Charges] -Treatment Charges
== END 2022-08-01 07:41 | disposition home or self-care (01) ==
PROVIDERS: PCP Family Medicine; Visit Provider Physician Assistant
DX: J96.11 Chronic respiratory failure with hypoxia (principal); J44.9 Chronic obstructive pulmonary disease, unspecified
CPT/HCPCS: 94618

== ENCOUNTER 2023-01-14 10:48 | Outpatient (CLI) | payer MEDICARE, MEDICAID, SELFPAY ==
--- NOTE | ~2023-01-14 | CT_ITS ---
EXAMINATION:CT diagnostic chest wo con DATE: 01/14/2023 11:09 INDICATION: Solitary pulmonary nodule. TECHNIQUE: Computed tomography (CT) of the chest was performed without intravenous contrast. Automate d exposure control and iterative reconstruction technique were employed. The dose-length product (DLP ) was 667.41 mGy-cm. COMPARISON: Chest CT 07/09/2022 FINDINGS: There is mild atelectasis bilaterally. There is a 7 mm nodule in left lower lobe, stable fr om 07/09/2022. There is mild emphysema. No pleural effusion. The heart size is normal. There are bateman ry artery calcifications. No pericardial effusion. The central pulmonary arteries are enlarged, consi stent with pulmonary arterial hypertension. There is bilateral gynecomastia. There are gallstones in the gallbladder. There is mild thoracic spondylosis. There is a chronic compression fracture of L1. IMPRESSION: 1. Lung-RADS category 2: Benign appearance or behavior. Continue annual screening with noncontrast lo w-dose chest CT in 12 months. Reviewed, dictated and finalized at location A. IMPRESSION: 1. Lung-RADS category 2: Benign appearance or behavior. Continue annual screeni ng with noncontrast low-dose chest CT in 12 months.
== END 2023-01-14 10:49 | disposition home or self-care (01) ==
LOC: ANHIMG 10:48
PROVIDERS: PCP Family Medicine; Visit Provider Physician Assistant
DX: R91.1 Solitary pulmonary nodule (principal)
CPT/HCPCS: 71250

== ENCOUNTER 2024-03-16 09:55 | Outpatient (CLI) | payer MEDICARE, MEDICAID, SELFPAY ==
--- NOTE | ~2024-03-16 | CT_ITS ---
CT Scan of the Chest without Contrast: Clinical Indication: Lung cancer screening, nicotine dependence Technique: Contiguous sections were acquired throughout the chest without intravenous contrast. Dose reduction technique was used on this scan by utilizing automated exposure control and iterative recon struction technique. The dose-length product (DLP) was 472.61 mGy-cm. COMPARISON: 01/14/2023 Findings: There is no evidence of any significant mediastinal, hilar or axillary lymphadenopathy. The mediastin al soft tissues appear normal. There is no evidence of pleural or pericardial effusion. There is linear scarring or possibly atelectasis at the right middle lobe and lingula. Stable 8 mm le ft basilar pulmonary nodule (axial image 110). Images through the upper abdomen reveal calcified gallstones. Stable L1 compression fracture. Impression: Lung RADS 2: Benign appearance. 12 month follow-up screening CT advised. Reviewed, dictated and finalized at [facility]. 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 12 month follow-up screening CT advised.
== END 2024-03-16 09:56 | disposition home or self-care (01) ==
PROVIDERS: PCP Family Medicine; Visit Provider Physician Assistant
DX: Z12.2 Encounter for screening for malignant neoplasm of respiratory organs (principal); Z87.891 Personal history of nicotine dependence
CPT/HCPCS: 71271

== ENCOUNTER 2024-08-06 16:35 | Emergency (ER) | payer MEDICARE, MEDICAID, SELFPAY ==
[2024-08-06 16:36] VITALS: BP 142/88; PULSE 84; RESP 16; TEMP 37.1; O2SAT 97
--- NOTE | 2024-08-06 17:15 | ED_ITS ---
HPI - General Adult General Chief complaint: Nausea/Vomiting/Diarrhea Stated complaint: generalized sick case Time Seen by Provider: 08/06/24 16:51 History of Present Illness HPI narrative: 68-year-old male presenting to the emergency department for evaluation for nausea without vomiting over the last few days. Patient states that this has been a recurrent issue with him. Patient does admit to daily THC use for pain control for ankle injury. Patient does also take for [place] daily for pain control. Patient does have follow-up scheduled with a GI physician. Related Data Home Medications ?Medication ?Instructions ?Recorded ?Confirmed ?Last Taken ?Type Austedo 18 mg PO BID 09/19/20 05/14/24 Unknown History lumateperone 42 mg capsule 42 mg PO DAILY 05/31/21 05/14/24 Unknown History (Caplyta) hydrocodone 10 mg-acetaminophen 1 tablet PO Q6H PRN 07/21/21 05/14/24 Unknown History 325 mg tablet Allergies Allergy/AdvReac Type Severity Reaction Status Date / Time No Known Allergies Allergy Verified 08/06/24 16:42 Review of Systems 2 Review of Systems: All systems reviewed & are unremarkable except as noted in HPI and below PMFSH Past Medical History Medical History Coughing SOB (shortness of breath) on exertion Vision loss 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 Hypertension Diabetes Depression Anxiety Schizophrenia Surgical History Surgical History H/O foot surgery Left foot in [id number] Family History Family History Mother Diabetes mellitus Sibling Cancer of brain Social History Social History Years smoked: 53 Smoking status: Former smoker Tobacco type: cigarettes Smoking end date: 04/23/22 Alcohol intake: never Substance use: never Substance use type: other Other substance usage details: HEMP Lack of Transportation: No Lack of Food: Never True Current Housing: I Have Housing Concerned About Future Housing: No Difficulty Paying Gas/Electric Bills: No Difficulty Paying for Meds: No Currently Unemployed: No Education: High School Diploma/GED Difficulty w/ Childcare or Family Care: No Gender identity (if verbalized by the patient): Male Exam 2 Narrative: APPEARANCE: Well appearing, no pain, no distress, well-nourished. HEAD: normocephalic, atraumatic. EYES: PERRLA/EOMI, conjunctivae clear. NOSE: Normal no drainage EARS:TMS clear with good light reflex. THROAT: Pharynx clear, no exudate. NECK: Supple. No adenopathy, no masses. RESPIRATORY: Airway patent, respirations nonlabored. Clear to auscultation bilaterally, no rales, rhonchi, wheezing. CARDIOVASCULAR: Regular rate and rhythm without murmurs rubs or gallops. ABDOMINAL: Soft, nontender, nondistended, normal bowel sounds MUSCULOSKELETAL: Moves all extremities. Strength/ROM intact, No edema, No calf tenderness. NEURO: Alert. Cranial nerves II through XII intact. Grossly intact SKIN: Warm, dry. Normal Color Course Vital Signs Vital signs: Vital Signs Temperature 98.7 F 08/06/24 16:36 Pulse Rate 84 08/06/24 16:36 Respiratory Rate 16 08/06/24 16:36 Blood Pressure 142/88 H 08/06/24 16:36 Pulse Oximetry 97 08/06/24 16:36 Oxygen Delivery Nasal Cannula 08/06/24 16:36 Oxygen Flow Rate 1 08/06/24 16:36 Temperature 98.7 F 08/06/24 16:36 Pulse Rate 72 08/06/24 17:19 Respiratory Rate 24 H 08/06/24 17:19 Blood Pressure 142/88 H 08/06/24 16:36 Pulse Oximetry 97 08/06/24 16:36 Oxygen Delivery Nasal Cannula 08/06/24 16:36 Oxygen Flow Rate 1 08/06/24 16:36 Medical Decision Making [facility] Narrative Medical decision making narrative: 68-year-old male presents emergency department for evaluation for recurrent nausea and vomiting. Patient does use THC daily. Suspect patient's symptoms are most likely secondary to cannabinoid hyperemesis syndrome. Patient is currently afebrile but does have a leukocytosis of 11.5 and hemoglobin of 15.3. no significant abnormalities on the CMP urine was negative for infection. Patient was treated with IM Haldol and did feel resolution the nausea patient did request discharge to home. Differential Diagnosis Differential Diagnosis: Viral etiology, nausea, vomiting, diarrhea, dehydration, cannabinoid hyperemesis syndrome Vital Signs Vital Signs: Vital Signs Temperature 98.7 F 08/06/24 16:36 Pulse Rate 84 08/06/24 16:36 Respiratory Rate 16 08/06/24 16:36 Blood Pressure 142/88 H 08/06/24 16:36 Pulse Oximetry 97 08/06/24 16:36 Oxygen Delivery Nasal Cannula 08/06/24 16:36 Oxygen Flow Rate 1 08/06/24 16:36 Temperature 98.7 F 08/06/24 16:36 Pulse Rate 72 08/06/24 17:19 Respiratory Rate 24 H 08/06/24 17:19 Blood Pressure 142/88 H 08/06/24 16:36 Pulse Oximetry 97 08/06/24 16:36 Oxygen Delivery Nasal Cannula 08/06/24 16:36 Oxygen Flow Rate 1 08/06/24 16:36 Lab Data Lab results reviewed: Yes I reviewed the patient's lab results. 08/06/24 17:34 08/06/24 17:34 Labs: Lab Results 08/06/24 Range/Units 17:34 WBC 11.5 H (4.5-10.0) K/mm3 RBC 5.03 (4.6-6.20) M/mm3 Hgb 15.3 (14.0-18.0) g/dL Hct 44.9 (42.0-52.0) % MCV 89.3 (80-100) fl MCH 30.4 (26-34) pg MCHC 34.1 (32-36) g/dl RDW 12.5 (11.5-14.5) % Plt Count 175 (150-375) k/mm3 MPV 9.3 (7.4-10.4) fl Immature Gran % (Auto) 0.7 H (0-0.5) % Neut % (Auto) 67.5 (45.5-73.1) % Lymph % (Auto) 20.3 (18.3-44.2) % [place] % (Auto) 10.6 H (2.6-8.5) % Eos % (Auto) 0.5 (0-4.4) % Baso % (Auto) 0.4 (0.2-1.2) % Lymph # (Auto) 2.33 (0.9-3.2) K/mm3 [place] # (Auto) 1.2 H (0.1-0.6) K/mm3 Eos # (Auto) 0.1 (0-0.3) K/mm3 Baso # (Auto) 0.1 (0.0-0.1) K/mm3 Abs Immat Gran (auto) 0.08 H (0.00-0.031) K/mm3 Absolute Neuts (auto) 7.7 H (1.3-6.7) K/mm3 Absolute Nucleated RBC 0.000 (0.0-0.012) K/mm3 Nucleated RBC % 0.0 (0.0-0.2) % Sodium 132 L (137-145) mmol/L Potassium 3.4 (3.4-5.0) mmol/L Chloride 95 L (98-107) mmol/L Carbon Dioxide 29 (22-30) mmol/L Anion Gap 8 (4-12) mmol/L BUN 16 (9-20) mg/dL Creatinine 1.44 H (0.7-1.3) mg/dL Estim Creat Clear Calc 61 ml/min Estimated GFR 49 L (59 - ) Glucose 81 (65-110) mg/dL Calcium 9.2 (8.4-10.2) mg/dL Total Bilirubin 0.7 (0.2-1.3) mg/dL AST 30 (17-59) U/L ALT 28 (6-50) U/L Alkaline Phosphatase 66 (38-126) U/L Total Protein 7.0 (6.3-8.2) g/dL Albumin 4.4 (3.5-5.1) g/dL Lipase 46 (23-300) U/L Urine Color Yellow (Yellow) Urine Appearance Clear (Clear) Urine pH 6.0 (5.0-9.0) Ur Specific [place] 1.003 (1.001-1.035) Urine Protein Negative (Negative) mg/dL Urine Glucose (UA) Negative (Negative) mg/dL Urine Ketones Negative (Negative) mg/dL Ur Blood (Man) Negative (Negative) Urine Nitrate Negative (Negative) Urine Bilirubin Negative (Negative) Urine Urobilinogen 0.2 (<2.0) mg/dL Leukocyte Esterase Rfl Negative (Negative) NIMA/UL Discharge Plan Discharge Clinical Impression: Nausea & vomiting, Cannabinoid hyperemesis syndrome Patient Disposition: Home Condition: Stable Instructions: Antibiotic Form, Acute Nausea and Vomiting (ED) Additional Instructions: Continue to educate yourself on cannabinoid hyperemesis syndrome and limit your THC intake as much as possible. Reglan as needed for nausea control. Continue to have close follow-up with GI. Patient Language: Turkish Prescriptions: New metoclopramide HCl [Reglan] 10 mg tablet 10 mg PO Q6H PRN (Reason: nausea and vomiting) Qty: 14 0RF No Action hydrocodone-acetaminophen 10-325 mg tablet 1 tablet PO Q6H PRN linaclotide 72 mcg capsule 72 mcg capsule 0RF Caplyta 42 mg capsule 42 mg PO DAILY polyethylene glycol 3350 [Miralax] 17 gram/dose powder 17 g PO DAILY Qty: 510 1RF ondansetron 4 mg tablet,disintegrating 4 mg PO Q12H PRN (Reason: nausea and vomiting) Qty: 20 1RF (DME) Contour Next Test Strips Strip See Rx Instructions .Route Qty: 100 1RF Rx Instructions: As directed, daily [place] 18 mg PO BID albuterol sulfate 90 mcg/actuation HFA aerosol inhaler See Rx Instructions .ROUTE .COMPLEX Qty: 8.5 2RF Dose Instruction: INHALE 1 - 2 INHALATIONS EVERY 4 TO 6 HOURS NEEDED FOR SHORTNESS OF BREATH OR WHEEZING Rx Instructions: INHALE 1 - 2 INHALATIONS EVERY 4 TO 6 HOURS NEEDED FOR SHORTNESS OF BREATH OR WHEEZING (DME) lancets [TRUEplus Lancets] 28 gauge misc See Rx Instructions .Route Qty: 300 6RF Rx Instructions: As directed 3 times a day ipratropium bromide 0.02 % solution See Rx Instructions .ROUTE .COMPLEX Qty: 300 9RF Dose Instruction: USE 1 VIAL IN NEBULIZER EVERY SIX (6) HOURS NEEDED FOR SHORTNESS OF BREATH OR WHEEZING Rx Instructions: USE 1 VIAL IN NEBULIZER EVERY SIX (6) HOURS NEEDED FOR SHORTNESS OF BREATH OR WHEEZING Vascepa 1 gram capsule See Rx Instructions .ROUTE .COMPLEX Qty: 180 11RF Dose Instruction: TAKE 2 CAPSULES BY MOUTH TWICE DAILY Rx Instructions: TAKE 2 CAPSULES BY MOUTH TWICE DAILY Januvia 25 mg tablet 25 mg PO DAILY Qty: 90 1RF Movantik 25 mg tablet 25 mg PO DAILY Qty: 30 3RF Rx Instructions: must be taken on empty stomach; no food 1 hr after or 2-3 hrs before dose atorvastatin 20 mg tablet 20 mg PO DAILY Qty: 90 1RF amlodipine 5 mg tablet 5 mg PO DAILY Qty: 90 1RF albuterol sulfate 2.5 mg /3 mL (0.083 %) solution for nebulization See Rx Instructions .ROUTE .COMPLEX Qty: 180 5RF Dose Instruction: USE 1 VIAL IN NEBULIZER TWICE A DAY NEEDED FOR SHORTNESS OF BREATH OR WHEEZING Rx Instructions: USE 1 VIAL IN NEBULIZER TWICE A DAY NEEDED FOR SHORTNESS OF BREATH OR WHEEZING budesonide 0.5 mg/2 mL suspension for nebulization See Rx Instructions .ROUTE .COMPLEX Qty: 120 11RF Dose Instruction: USE 1 VIAL IN NEBULIZER EVERY 12 HOURS DO NOT MIX WITH OTHER NEBULIZER SOLUTION. RINSE MOUTH AND SPIT AFTER EACH USE. Rx Instructions: USE 1 VIAL IN NEBULIZER EVERY 12 HOURS DO NOT MIX WITH OTHER NEBULIZER SOLUTION. RINSE MOUTH AND SPIT AFTER EACH USE. arformoterol 15 mcg/2 mL solution for nebulization See Rx Instructions .ROUTE .COMPLEX Qty: 120 11RF Dose Instruction: USE 1 VIAL IN NEBULIZER EVERY 12 HOURS DO NOT MIX WITH OTHER NEBULIZER SOLUTION. Rx Instructions: USE 1 VIAL IN NEBULIZER EVERY 12 HOURS DO NOT MIX WITH OTHER NEBULIZER SOLUTION. pregabalin 150 mg capsule 150 mg PO BID Qty: 60 0RF Follow-up/Referrals: Jose Miguel Mijares MD [Primary Care Provider] -
[2024-08-06 17:19] VITALS: PULSE 72; RESP 24
[2024-08-06] MEDS: IPRATROPIUM 0.5 MG/ALBUTEROL SULFATE 2.5 MG AMPUL.NEB 3 ML INHALATION (17:19)
[2024-08-06] MEDS: HALOPERIDOL LACTATE 5 MG/ML VIAL IM (17:19)
[2024-08-06 17:42] LABS: Basophils Absolute Auto 0.1 K/mm3 (0.0-0.1); Basophils Percent Auto 0.4 % (0.2-1.2); Eosinophils Absolute Auto 0.1 K/mm3 (0-0.3); Eosinophils Percent Auto 0.5 % (0-4.4); Hematocrit 44.9 % (42.0-52.0); Hemoglobin 15.3 g/dL (14.0-18.0); Immature Granulocyte Absolute 0.08 K/mm3 (0.00-0.031); Immature Granulocyte Percent A 0.7 % (0-0.5); Lymphocytes Absolute Auto 2.33 K/mm3 (0.9-3.2); Lymphocytes Percent Auto 20.3 % (18.3-44.2); Mean Corpuscular HGB Conc 34.1 g/dl (32-36); Mean Corpuscular Hemoglobin 30.4 pg (26-34); Mean Corpuscular Volume 89.3 fl (80-100); Mean Platelet Volume 9.3 fl (7.4-10.4); Monocytes Absolute Auto 1.2 K/mm3 (0.1-0.6); Monocytes Percent Auto 10.6 % (2.6-8.5); Neutrophils Absolute Auto 7.7 K/mm3 (1.3-6.7); Neutrophils Percent Auto 67.5 % (45.5-73.1); Platelet Count Result 175 k/mm3 (150-375); Red Blood Count 5.03 M/mm3 (4.6-6.20); Red Cell Distribution Width 12.5 % (11.5-14.5); White Blood Count 11.5 K/mm3 (4.5-10.0)
[2024-08-06 17:44] LABS: Add Urine Microscopic? NO; Appearance Urine Clear (Clear); Bilirubin Urine Negative (Negative); Blood Urine Negative (Negative); Color Urine Yellow (Yellow); Glucose Urine UA Negative (Negative); Ketones Urine Negative (Negative); Leukocyte Esterase Ur Negative LEU/UL (Negative); Nitrate Urine Negative (Negative); Protein Urine Negative (Negative); Specific Grav Ur 1.003 (1.001-1.035); Urobilinogen Urine 0.2 mg/dL (<2.0)
--- OUTSIDE RECORDS SUMMARY | 2024-08-06 17:55 | XMS_ITS | Clinical Summary ---
Author Organization [facility] Address [address] [place] [address] Care Team Providers Care Kitchen Steward/Stewardess Name Role Phone Eladio Kang MD Unavailable [phone] Gloria Gusman MD Unavailable [phone] Judah De DPGloria Unavailable [phone] Jose Miguel Mijares MD Primary Care Provider [phone] Allergies Active Allergy Reactions Criticality Noted Date Comments Codeine Headache Low Medications atorvastatin (LIPITOR) 40 mg tabletIndications :coronary artery disease Take 40 mg by mouth nightly. Active SITagliptin (JANUVIA) 25 mg tabletIndications :type 2 diabetes mellitus Take 50 mg by mouth daily. Active ipratropium-albut mary (DUO-NEB) 0.5-2.5 mg/3 mL nebulizer solutionIndicatio ns:Chronic Obstructive Pulmonary Disease with Bronchospasms Take 3 mL by nebulization every 6 (six) hours. 360 mL 04/14/19 19 Active amLODIPine (NORVASC) 5 mg tabletIndications :hypertension Take 1 tablet (5 mg total) by mouth daily. 30 tablet 04/15/19 19 Active vitamin E 400 unit capsuleIndication s:Vitamin E Deficiency Take 400 Units by mouth daily. Active b complex vitamins tabletIndications :Vitamin Deficiency Take 1 tablet by mouth daily. Active coenzyme Q10 (CO Q-10) 10 mg capsuleIndication s:Other Take 10 mg by mouth daily. Active cyanocobalamin/fo lic acid (VITAMIN C64-SGEVP ACID ORAL)Indications: Other Take 1 tablet by mouth daily. Active oxygenIndications :Dyspnea Inhale 2 L/min continuously. Active SYMBICORT 160-4.5 mcg/actuation inhalerIndication s:Bronchospasm Prevention with COPD 04/25/19 19 Active clonazePAM (KlonoPIN) 0.5 mg tabletIndications :Cathryn associated with Bipolar Disorder, Adjunct Take 0.5 tablets (0.25 mg total) by mouth 3 (three) times a day for 3 days 5 tablet 03/15/20 20 Active clonazePAM (KlonoPIN) 0.5 mg tabletIndications :Cathryn associated with Bipolar Disorder, Adjunct Take 0.5 tablets (0.25 mg total) by mouth daily for 3 days 2 tablet 03/18/20 Active lithium ER (ESKALITH) 450 mg CR tabletIndications :Cathryn associated with Bipolar Disorder Take 2 tablets (900 mg total) by mouth nightly 60 tablet 03/15/20 20 Active QUEtiapine (SEROquel) 200 mg tabletIndications :Cathryn associated with Bipolar Disorder Take 1 tablet (200 mg total) by mouth nightly 30 tablet 03/15/20 Active ciprofloxacin (CIPRO) 500 mg tablet 03/18/20 Active Austedo 12 mg tablet 03/21/20 Active gabapentin (NEURONTIN) 100 mg capsule 03/21/20 Active HYDROcodone-aceta minophen (NORCO) 5-325 mg per tablet 03/23/20 Active Vascepa 1 gram capsule 03/21/20 Active lisinopriL (PRINIVIL,ZESTRIL ) 10 mg tablet 03/15/20 Active Namzaric 28-10 mg capsule,sprinkle, ER 24hr extended release capsule 03/21/20 Active nitrofurantoin monohydrate (MACROBID) 100 mg capsule 03/04/20 Active sertraline (ZOLOFT) 100 mg tablet 03/21/20 Active traMADoL (ULTRAM) 50 mg tablet 3 03/21/20 Active traZODone (DESYREL) 50 mg tablet 03/21/20 Active zolpidem (AMBIEN) 10 mg tablet 03/21/20 Active ondansetron (ZOFRAN) 4 mg tablet Take 1 tablet (4 mg total) by mouth every 6 (six) hours 12 tablet 03/21/20 23 Active Active Problems Problem Noted Date Diagnosed Date Post-traumatic arthritis of left ankle 0 Concern for Dementia 03/15/2020 Assessment & Plan (03/15/2020 10:43 AM COMMERCIAL SALES SPECIALIST): Patient has an unclear history of memory loss noted by outpatient providers. Currently on Namzaric. Poor memory likely may be due in part to complex medication regimen including Ambien, trazodone, sertraline, gabapentin, austedo, namzaric, klonopin, Seroquel and lithium - MOCA TOTAL SCORE = 22/30: Visuospatial/Executive - 3/5, Naming - 3/3, Attention - /6, Language - 2/3, Abstraction - 2/2, Delayed Recall - /5, Orientation - 5/6 - Namzaric held during admission, follow-up with PCP Influenza B 04/07/2018 Assessment & Plan (04/07/2018 10:20 PM COMMERCIAL SALES SPECIALIST): Rapid flu positive for influenza B. Patient was started on Tamiflu. COPD exacerbation 04/07/2018 Assessment & Plan (04/07/2018 10:29 PM COMMERCIAL SALES SPECIALIST): Secondary to influenza B. Patient has clear sputum. No need for antibiotics. Will continue with IV steroids and breathing treatments. Schizoaffective disorder, bipolar type 8 Assessment & Plan (03/15/2020 10:36 AM COMMERCIAL SALES SPECIALIST): Patient continues to display distractibility, irritability, tangential speech consistent with hypomania. Also displaying poor memory, unclear if it is due to poor attention or evidence of dementia. Of note, patient is still receiving Klonopin TID. Current episodes appears to be precipitated by decreased dosage of Loami. Patient declining to sign in voluntary at this time and does not meet criteria for 21 day hold at this time. Will likely be discharged today at a hypermanic state. Continue Loami 900mg QHS and Seroquel 200mg at discharge. Will follow up with PCP and outpatient provider to monitor kidney function and lithium level. - Continue Loami 900mg ER QHS on discharge - Continue Seroquel 200mg on discharge - Contine Klonopin 0.25mg TID x 3 day, followed by Klonpin 0.25mg daily x 3 days to complete taper - Loami level 0.4, repeat level in 1 week. Assessment & Plan (03/14/2020 1:15 PM COMMERCIAL SALES SPECIALIST): Patient continues to display distractibility, irritability, tangential speech consistent with hypomania. Current episodes appears to be precipitated by decreased dosage of Loami. Will continue Loami at 450mg last night, will check troph tonight. Will continue Klonopin at 0.25mg for titration. Patient declining to sign in voluntary at this time and does not meet criteria for 21 day hold at this time. Will likely be discharged tomorrow at a hypermanic state. Will ensure outpatient follow up before discharge - Continue Loami 450mg ER QHS, check troph before tonight's night dose - Continue Seroquel 150mg - Contine Klonopin 0.25mg TID, outpatient provider to continue taper Assessment & Plan (03/12/2020 10:45 AM COMMERCIAL SALES SPECIALIST): Patient continues to display distractibility, irritability, tangential speech consistent with hypomania. Current episodes appears to be precipitated by decreased dosage of Loami. Loami started at 450mg last night, will continue at this dose at this time due to reduced kidney function and check troph before Saturday dose. Will slowly titrate down Klonopin due to unclear utilization by patient. - Continue Loami 450mg ER QHS, check troph before Saturday night dose - Continue Seroquel 150mg - Contine Klonopin 0.5mg TID, will decrease to 0.25mg Saturday Assessment & Plan (03/11/2020 2:02 PM COMMERCIAL SALES SPECIALIST): Patient continues to display distractibility, irritability, tangential speech consistent with hypomania. Current episodes appears to be precipitated by decreased dosage of Loami. Loami started at 450mg last night, will continue at this dose at this time due to reduced kidney function and check troph before Saturday dose. Will slowly titrate down Klonopin due to unclear utilization by patient. - Continue Loami 450mg ER QHS, check troph before Saturday night dose - Continue Seroquel 150mg - Decrease to Klonopin 0.5mg TID to continue taper Assessment & Plan (04/07/2018 10:19 PM COMMERCIAL SALES SPECIALIST): Home medications have been resumed. We do not have ingrezza and patient was advised that he can have his sister bring in his home medication. Patient can resume medication once and has been verified with pharmacy. Tobacco dependence 04/07/2018 Assessment & Plan (04/07/2018 10:18 PM COMMERCIAL SALES SPECIALIST): Patient has a history of smoking 1 pack per day for 52 years. He states he quit yesterday because he was scared that he could not breathe. Patient is okay with a nicotine patch at this time. FLORA on CPAP 04/07/2018 Assessment & Plan (03/09/2020 11:57 PM COMMERCIAL SALES SPECIALIST): -On FLORA precautions -Ordered home CPAP Assessment & Plan (04/07/2018 10:20 PM COMMERCIAL SALES SPECIALIST): CPAP has been ordered q.h.s.. CKD (chronic kidney disease) stage 3, GFR 30-59 ml/min 04/07/2018 Assessment & Plan (03/15/2020 10:28 AM COMMERCIAL SALES SPECIALIST): Cr 1.65 on admission, baseline 1.38 - 1.40. Repeat Cr 1.41, consistent with patient's baseline - Elevated Cr on admission likely due to acute on chronic kidney injury in the setting of poor intake - Last Cr 1.47 - Holding Lisinopril on discharge - Follow up BMP on discharge Assessment & Plan (03/14/2020 1:10 PM COMMERCIAL SALES SPECIALIST): Cr 1.65 on admission, baseline 1.38 - 1.40. Repeat Cr 1.41, consistent with patient's baseline - Elevated Cr on admission likely due to acute on chronic kidney injury in the setting of poor intake - Last Cr 1.47 1.47 - Continue q48 BMP - Holding Lisinopril Assessment & Plan (03/12/2020 10:44 AM COMMERCIAL SALES SPECIALIST): Cr 1.65 on admission, baseline 1.38 - 1.40 - Cr 1.41 on recent BMP, consistent with patient's baseline - Elevated Cr on admission likely due to acute on chronic kidney injury in the setting of poor intake - Continue q48 BMP - Holding Lisinopril Assessment & Plan (03/11/2020 1:50 PM COMMERCIAL SALES SPECIALIST): Cr 1.65 on admission, baseline 1.38 - 1.40 - Cr 1.40 on recent BMP, consistent with patient's baseline - Elevated Cr on admission likely due to acute on chronic kidney injury in the setting of poor intake - Continue q48 BMP - Holding Lisinopril Assessment & Plan (04/07/2018 10:20 PM COMMERCIAL SALES SPECIALIST): Creatinine appears to be stable from 2012. Will avoid any unnecessary nephrotoxins. Continue to monitor. Acute respiratory failure with hypoxia 8 Assessment & Plan (04/07/2018 10:26 PM COMMERCIAL SALES SPECIALIST): Likely secondary to COPD exacerbation and influenza. Will continue with supplemental oxygen support. Patient currently has CPAP on for the evening. He was on 2 L nasal cannula which can be resumed when CPAP is soft. Will wean oxygen as tolerated. Type 2 diabetes mellitus wit h diabetic polyneuropathy, without long-term current use of insulin 04/17/2013 Overview (07/12/2016): DMII WO CMP UNCNTRLD Assessment & Plan (03/15/2020 10:37 AM COMMERCIAL SALES SPECIALIST): BG 116 - Home Januvia 50 mg Assessment & Plan (03/14/2020 1:15 PM COMMERCIAL SALES SPECIALIST): BG 143 -Ordered home Januvia 50 mg -QID Acuchecks Assessment & Plan (03/12/2020 10:45 AM COMMERCIAL SALES SPECIALIST): BG 143 -Ordered home Januvia 50 mg -QID Acuchecks Assessment & Plan (03/10/2020 12:00 AM COMMERCIAL SALES SPECIALIST): BG 143 -Ordered home Januvia 50 mg -QID Acuchecks -Could change to SSI Assessment & Plan (04/07/2018 10:17 PM COMMERCIAL SALES SPECIALIST): Patient is on Januvia at home which has been resumed. Patient is also on a low- dose sliding scale. Will continue to monitor but patient will likely need adjustments of insulin due to IV steroids COPD (chronic obstructive pulmonary disease) Assessment & Plan (03/15/2020 10:28 AM COMMERCIAL SALES SPECIALIST): - Continue home Symbicort & prn duo-nebs w/ RT Assessment & Plan (03/14/2020 1:10 PM COMMERCIAL SALES SPECIALIST): - Continue home Symbicort & prn duo-nebs w/ RT Assessment & Plan (03/12/2020 10:44 AM COMMERCIAL SALES SPECIALIST): - Continue home Symbicort & prn duo-nebs w/ RT Assessment & Plan (03/11/2020 1:51 PM COMMERCIAL SALES SPECIALIST): -Continue home Symbicort & prn duo-nebs HTN (hypertension) Assessment & Plan (03/15/2020 10:28 AM COMMERCIAL SALES SPECIALIST): BP 149/94 this morning - Restart home amlodipine 5mb - Holding home lisinopril 10 (monitoring kidney function) - Follow-up with PCP about restarting Assessment & Plan (03/14/2020 1:12 PM COMMERCIAL SALES SPECIALIST): BP 149/94 this morning - Restart home amlodipine 5mb - Holding home lisinopril 10 (monitoring kidney function) - Follow-up with PCP about restarting Assessment & Plan (03/12/2020 10:45 AM COMMERCIAL SALES SPECIALIST): BP 113/69 - Holding home lisinopril 10 (monitoring kidney function) - Holding home amlodipine 5 (soft BP) - Follow-up with PCP about restarting Assessment & Plan (03/11/2020 1:54 PM COMMERCIAL SALES SPECIALIST): BP 113/69 - Holding home lisinopril 10 (monitoring kidney function) - Holding home amlodipine 5 (soft BP) HLD (hyperlipidemia) Assessment & Plan (03/15/2020 10:28 AM COMMERCIAL SALES SPECIALIST): History of HLD on atorvastatin and vascepa. Lipid panel shows low HDL (36), normal LDL (37) and high triglycerides (273) -Continued home atorvastatin 20 mg -Held Vascepa 1g QID (not available in hospital), continue on discharge Assessment & Plan (03/14/2020 1:10 PM COMMERCIAL SALES SPECIALIST): History of HLD on atorvastatin and vascepa. Lipid panel shows low HDL (36), normal LDL (37) and high triglycerides (273) -Continued home atorvastatin 20 mg -Held Vascepa 1g QID (not available in hospital), continue on discharge Assessment & Plan (03/12/2020 10:44 AM COMMERCIAL SALES SPECIALIST): History of HLD on atorvastatin and vascepa. Lipid panel shows low HDL (36), normal LDL (37) and high triglycerides (273) -Continued home atorvastatin 20 mg -Held Vascepa 1g QID (not available in hospital), continue on discharge Assessment & Plan (03/11/2020 1:54 PM COMMERCIAL SALES SPECIALIST): History of HLD on atorvastatin and vascepa. Lipid panel shows low HDL (36), normal LDL (37) and high triglycerides (273) -Continued home atorvastatin 20 mg -Held Vascepa 1g QID (not available in hospital), continue on discharge Resolved Problems Problem Noted Date Diagnosed Date Resolved Date Poor memory 03/15/2020 03/15/2020 History of schizoaffective disorder 03/09/2020 03/09/2020 Encounters Date Type Department Care Team Description 06/18/2024 11:50 AM CDT [address] [address] 06/15/2024 10:30 AM CDT [address] [address] 06/15/2024 10:25 AM CDT [address] [address] from Last 3 Months Immunizations Immunization Administration Dates Next Due Influenza, Unspecified 01/07/2020 Surgical History Surgery Date Site/Laterality Comments ANKLE FRACTURE SURGERY pt has had 3 surgery's on left ankle Medical History Medical History Date Comments Diabetes mellitus (HCC) Diabetes Hx Other Medical 2012 Bipap Hx Other Medical 1978 Shitzo affectiv e Bi polar type Difficulty walking Bipolar disorder (HCC) Obstructive sleep apnea COPD (chronic obstructive pu lmonary disease) (HCC) Family History Medical History Relation Name Comments Coronary artery disease Brother Blake rivera artery disease; Coronary artery disease Father Blake rivera artery disease; Diabetes Mother Diabetes mellit us; Relation Name Status Comments Brother Father Mother Social History Tobacco Use Types Packs/Day Years Used Date Smoking Tobacco: Every Day Cigarettes 1 4.7 Started: 12/08/2019 Smokeless Tobacco: Never Tobacco Cessation:Ready to Q uit: No; Counseling Given: Yes Comments:Patient quit smoking last 5 years. Recently began again in last 3 months Alcohol Use Standard Drinks/Week Comments Yes 1 (1 standard drink = 0.6 oz pur e alcohol) Personal Safety Answer Date Recorded Have you ever been in or are you currently in a harmful physical or emotional relationship or is someone making you feel afraid or unsafe? Denies 03/21/2023 Sex and Gender Information Value Date Recorded Sex Assigned at Not on file Legal Sex Male 3:08 AM COMMERCIAL SALES SPECIALIST Gender Identity Not on file Sexual Orientation Not on file Occupation Industry Job Start Date Job End Date disabled Not on file Not on file Not on file Obstetrics History Last Filed Vital Signs Vital Sign Reading Time Taken Comments Blood Pressure 165/72 03/21/2023 1:00 PM COMMERCIAL SALES SPECIALIST Pulse 51 03/21/2023 1:00 PM COMMERCIAL SALES SPECIALIST Temperature 36.6 C (97.9 F) 03/21/2023 8:04 AM COMMERCIAL SALES SPECIALIST Respiratory Rate 14 03/21/2023 9:15 AM COMMERCIAL SALES SPECIALIST Oxygen Saturation 92% 03/21/2023 1:00 PM COMMERCIAL SALES SPECIALIST Inhaled Oxygen Concentration - - Weight 131.9 kg (290 lb 11.2 oz) 03/21/2023 8:04 AM COMMERCIAL SALES SPECIALIST Height 172.7 cm (5' 8 ) 03/21/2023 8:04 AM COMMERCIAL SALES SPECIALIST Body Mass Index 44.2 03/21/2023 8:04 AM COMMERCIAL SALES SPECIALIST Plan of Treatment Health Maintenance Due Date Last Done Comments Albumin Creatinine Ratio, Urine 1954 Depression Screening 1954 Hepatitis C Screening 1954 Dilated Eye Exam 1954 Foot Exam 1954 DTaP/Tdap/Td Vaccine (1 - Tdap) 1965 Hepatitis B Screening 1972 Pneumococcal vaccine 65+ (1 of 2 - PCV) 1973 Abdominal Aortic Aneurysm (A AA) Screen 09/02/2019 Well Visit 65+ 09/02/2019 Zoster Vaccine (2 of 2) 12/15/2019 10/20/2019 Fall Risk Assessment 03/15/2021 03/15/2020 Colon Cancer Screening-Colonoscopy 11/13/2022 11/13/2012 Influenza Vaccine (#1) 2023 01/07/2020 Hemoglobin A1C 12/19/2024 06/18/2024, 06/06, 06/15/2024, Additional history exists Lipid Panel 06/15/2025 06/15/2024, 0804/2023, 07/04/2020, Additional history exists eGFR 06/18/2025 06/18/2024, 06/06, 06/15/2024, Additional history exists Prostate Cancer Screening-PSA 06/15/2026, 11/27/2023, 06/27/2023 Colon Cancer Screening-CT Colonography Discontinued 11/13/2012 Colon Cancer Screening-DNA Stool Discontinued 11/14/19 Colon Cancer Screening-FIT Discontinued 11/13/2012 Colon Cancer Screening-Sigmoidoscopy Discontinued 11/13/2012 Procedures Procedure Name Priority Date/Time Associated Diagnosis Comments EGFR Routine 06/18/2024 12:05 PM CDT EGFR Routine 06/18/2024 12:05 PM CDT DIFFERENTIAL AUTO Routine 06/18/2024 12: 05 PM CDT PROTEIN / CREATININE RATIO, URINE, RANDOM Routine 06/18/2024 12:05 PM CDT CBC WITH AUTO DIFFERENTIAL Routine 06/18/2024 12:05 PM CDT RENAL FUNCTION PANEL Routine 06/18/2024 12:05 PM CDT HEMOGLOBIN A1C Routine 06/18/2024 12:05 PM CDT CREATININE Routine 06/18/2024 12:05 PM CDT VOLUME AND PERIOD, URINE, 24 HOUR Routine 06/18/2024 5:00 AM CDT CREATININE CLEARANCE, URINE, 24 HOUR RESULT Routine 06/18/2024 5:00 AM CDT EGFR Routine 06/15/2024 10:47 AM CDT EGFR Routine 06/15/2024 10:47 AM CDT DIFFERENTIAL AUTO Routine 06/15/2024 10: 47 AM CDT COMPREHENSIVE METABOLIC PANEL Routine 06/15/2024 10:47 AM CDT CBC WITHOUT DIFFERENTIAL Routine 06/15/2024 10:47 AM CDT PSA SCREEN Routine 06/15/2024 10:47 AM CDT LIPID PANEL Routine 06/15/2024 10:47 AM CDT FERRITIN Routine 06/15/2024 10:47 AM CDT IRON PROFILE W/ IBC Routine 06/15/2024 1 0:47 AM CDT HEMOGLOBIN A1C Routine 06/15/2024 10:47 AM CDT PROTEIN / CREATININE RATIO, URINE, RANDOM Routine 06/15/2024 10:47 AM CDT CBC WITH AUTO DIFFERENTIAL Routine 06/15/2024 10:47 AM CDT RENAL FUNCTION PANEL Routine 06/15/2024 10:47 AM CDT HEMOGLOBIN A1C Routine 06/15/2024 10:47 AM CDT COLONOSCOPY REPORT 11/13/2012 from Last 3 Months or Most Recently Relevant to Health Maintenance Results * (ABNORMAL) eGFR (06/18/2024 12:05 PM CDT) eGFR 54(L) >=60 mL/min/1. 73 m2 Comment: Interpretive Data Reference Interval Normal >/= 90 mL/min/1.73m2 Mildly decreased* 60 - 89 mL/min/1.73m2 Mildly to moderately decreased 45 - 59 mL/min/1.73m2 Moderately to severely decreased 30 - 44 mL/min/1.73m2 Severely decreased 15 - 29 mL/min/1.73m2 Kidney Failure < 15 mL/min/1.73m2 *Relative to young adult level Estimated glomerular filtration rate is determined by the 2020 CKD-EPI equation recommended by the National Kidney Foundation (A Unifying Approach to GFR Estimation: Recommendations of the NKF-ASK Task Force on Reassessing the Inclusion of Race in Diagnosing Kidney Disease, JASN 2020). The CKD-EPI equation should not be used for patients with unstable renal function and has not been validated in children and those over 70. Current interpretive data was last reviewed 2021. Urine/Blood 06/18/2024 12:0 5 PM CDT 06/18/2024 12:26 PM CDT us Eladio Kang MD LAB BLOOD ORDERABLES Final Re sult [facility] [place]) [facility] Department [place] [address] * (ABNORMAL) eGFR (06/18/2024 12:05 PM CDT) eGFR 52(L) >=60 mL/min/1. 73 m2 Comment: Interpretive Data Reference Interval Normal >/= 90 mL/min/1.73m2 Mildly decreased* 60 - 89 mL/min/1.73m2 Mildly to moderately decreased 45 - 59 mL/min/1.73m2 Moderately to severely decreased 30 - 44 mL/min/1.73m2 Severely decreased 15 - 29 mL/min/1.73m2 Kidney Failure < 15 mL/min/1.73m2 *Relative to young adult level Estimated glomerular filtration rate is determined by the 2020 CKD-EPI equation recommended by the National Kidney Foundation (A Unifying Approach to GFR Estimation: Recommendations of the NKF-ASK Task Force on Reassessing the Inclusion of Race in Diagnosing Kidney Disease, JASN 2020). The CKD-EPI equation should not be used for patients with unstable renal function and has not been validated in children and those over 70. Current interpretive data was last reviewed 2021. Blood 06/18/2024 12:0 5 PM CDT 06/18/2024 12:26 PM CDT us Eladio Kang MD LAB BLOOD ORDERABLES Final Re sult [facility] ([place]) [facility] Department [place] [address] * Differential, auto (06/18/2024 12:05 PM CDT) Neutrophil abs 5.0 1.5 - 6.5 K/cumm Imm gran abs 0.0 0.0 - 0.1 K/cumm [facility] ([place]) Lymphocyte abs 1.9 0.8 - 3.3 K/cumm [facility] ([place]) Monocyte abs 0.8 0.2 - 0.8 K/cumm [facility] ([place]) Eosinophil abs 0.2 0.0 - 0.5 K/cumm [facility] ([place]) Basophil abs 0.0 0.0 - 0.1 K/cumm [facility] ([place]) Neutrophil pct 63.1 % [facility] ([place]) Comment: Interpretive Data Percent cell count reference ranges are not reported, since discordance with absolute values may lead to misinterpretation of CBC data. Current Interpretive Data was last revised on 2017. Imm gran pct 0.5 % [facility] ([place]) Comment: Interpretive Data Percent cell count reference ranges are not reported, since discordance with absolute values may lead to misinterpretation of CBC data. Current Interpretive Data was last revised on 2017. Lymphocyte pct 23.9 % [facility] ([place]) Comment: Interpretive Data Percent cell count reference ranges are not reported, since discordance with absolute values may lead to misinterpretation of CBC data. Current Interpretive Data was last revised on 2017. Monocyte pct 9.5 % [facility] ([place]) Comment: Interpretive Data Percent cell count reference ranges are not reported, since discordance with absolute values may lead to misinterpretation of CBC data. Current Interpretive Data was last revised on 2017. Eosinophil pct 2.5 % [facility] ([place]) Comment: Interpretive Data Percent cell count reference ranges are not reported, since discordance with absolute values may lead to misinterpretation of CBC data. Current Interpretive Data was last revised on 2017. Basophil pct 0.5 % [facility] ([place]) Comment: Interpretive Data Percent cell count reference ranges are not reported, since discordance with absolute values may lead to misinterpretation of CBC data. Current Interpretive Data was last revised on 2017. Blood 06/18/2024 12:0 5 PM CDT 06/18/2024 12:26 PM CDT us Eladio Kang MD LAB BLOOD ORDERABLES Final Re sult [facility] ([place]) [facility] Department [place] [address] * CBC with auto differential (06/18/2024 12:05 PM CDT) WBC 7.9 3.8 - 9.9 K/cumm Hgb 13.6 13.0 - 17.5 g/dL [facility] ([place]) Hct 40.5 38.9 - 50.3 % [facility] ([place]) Plt 155 150 - 400 K/cumm [facility] ([place]) MPV 9.6 9.1 - 12.3 fL [facility] ([place]) RBC 4.36 4.30 - 5.80 M/cumm [facility] ([place]) MCV 92.9 81.3 - 96.4 fL [facility] ([place]) MCH 31.2 27.1 - 33.3 pg [facility] ([place]) MCHC 33.6 32.3 - 35.7 g/dL [facility] ([place]) RDW CV 12.7 11.1 - 14.9 % [facility] ([place]) RDW SD 43.1 35.7 - 48.1 fL [facility] ([place]) NRBC abs 0.00 0.00 - 0.01 K/cumm [facility] ([place]) Blood 06/18/2024 12:0 5 PM CDT 06/18/2024 12:26 PM CDT Eladio Kang MD LAB BLOOD ORDERABLES Final Re sult Performing Organization Address [facility] [[email or web address]] de Phone Number [facility] ([place]) [address] [facility] [place] [address] * Protein / creatinine ratio, urine, random (06/18/2024 12:05 PM CDT) Protein, ur, quant 9.6 mg/dL Comment: Interpretive Data No reference range established. Current interpretive data was last revised 2018. Creatinine Ur 76.5 mg/dL [facility] ([place]) Comment: Interpretive Data No reference range established. Current interpretive data was last revised 2018. Protein/creatinin e ratio 125.5 0.0 - 180.0 mg/g CR [facility] ([place]) Urine 06/18/2024 12:0 5 PM CDT 06/18/2024 12:30 PM CDT Eladio Kang MD LAB URINE ORDERABLES Final Re sult Performing Organization Address [facility] Co de Phone Number [facility] ([place]) 1 [facility] [place] [address] * Hemoglobin A1c (06/18/2024 12:05 PM CDT) Hgb A1C 5.2 4.0 - 5.6 % Estimated Average Glucose 103 mg/dL [facility] ([place]) Comment: The ADA recommends reporting an estimated Average Glucose (eAG) with all Hemoglobin A1c results using the equation derived from a study of 507 normal and diabetic adults. Minority populations were underrepresented and children were not included. (Diabetes Care 31:8814-5495, 2008). The eAG is not equivalent to a fasting glucose. Blood 06/18/2024 12:0 5 PM CDT 06/18/2024 12:26 PM CDT us Eladio Kang MD LAB BLOOD ORDERABLES Final Re sult Performing Organization Address City/[facility]/ZIP Co de Phone Number [facility] ([place]) 1 [facility] [place] [address] * (ABNORMAL) Creatinine (06/18/2024 12:05 PM CDT) Creatinine 1.41(H) 0.80 - 1.30 mg/dL Urine/Blood 06/18/2024 12:0 5 PM CDT 06/18/2024 12:26 PM CDT Eladio Kang MD LAB BLOOD ORDERABLES Final Re sult Performing Organization Address City/[facility]/ZIP Co de Phone Number [facility] ([place]) 1 [facility] [place] [address] * (ABNORMAL) Renal function panel (06/18/2024 12:05 PM CDT) Sodium 142 135 - 145 mmol/L Potassium, pl 4.8 3.3 - 4.9 mmol/L [facility] ([place]) Chloride 105 97 - 110 mmol/L [facility] ([place]) CO2 28 22 - 32 mmol/L [facility] ([place]) Anion gap 8 2 - 15 mmol/L [facility] ([place]) BUN 15 6 - 25 mg/dL [facility] ([place]) Creatinine 1.46(H) 0.80 - 1.30 mg/dL [facility] ([place]) Glucose 128 70 - 199 mg/dL [facility] ([place]) Comment: Interpretive Data Fasting glucose >/= 126 mg/dl is diagnostic for diabetes. Fasting is defined as no caloric intake for at least 8 hours. Fasting glucose between 100 mg/dl to 125 mg/dl is diagnostic of prediabetes. In a patient with classic symptoms of hyperglycemia or hyperglycemic crisis, a random glucose >/= 200 mg/dl is diagnostic for diabetes. In the absence of unequivocal hyperglycemia, results should be confirmed by repeat testing. The classification and Diagnosis of Diabetes Diabetes Care 2021; 46: S19-S40. Current interpretive data was last revised 2022. Calcium 9.2 8.5 - 10.3 mg/dL [facility] ([place]) Phosphorus, pl 2.4 2.3 - 4.5 mg/dL [facility] ([place]) Albumin 3.9 3.5 - 5.0 g/dL [facility] ([place]) Blood 06/18/2024 12:0 5 PM CDT 06/18/2024 12:26 PM CDT Eladio Kang MD LAB BLOOD ORDERABLES Final Re sult [facility] ([place]) 1 [facility] [place] [address] * Volume and period, urine, 24 hour (06/18/2024 5:00 AM CDT) Volume, ur 3,400 mL Period, Urine Collection 1,440 min [facility] ([place]) Urine 06/18/2024 5:00 AM CDT 06/18/2024 2:50 PM CDT Eladio Kang MD LAB URINE ORDERABLES Final Re sult [facility] ([place]) 1 [facility] [place] [address] * Creatinine clearance, urine, 24 hour (06/18/2024 5:00 AM CDT) Creatinine Clearance 71 60 - 130 mL/min Creatinine, 24 hr, ur 1.4 0.8 - 2.2 g/24H [facility] ([place]) Urine 06/18/2024 5:00 AM CDT 06/18/2024 2:50 PM CDT us Eladio Kang MD LAB URINE ORDERABLES Final Re sult Performing Organization Address City/[facility]/ZIP Co de Phone Number [facility] ([place]) 1 [facility] [place] [address] * (ABNORMAL) eGFR (06/15/2024 10:47 AM CDT) eGFR 55(L) >=60 mL/min/1. 73 m2 Comment: Interpretive Data Reference Interval Normal >/= 90 mL/min/1.73m2 Mildly decreased* 60 - 89 mL/min/1.73m2 Mildly to moderately decreased 45 - 59 mL/min/1.73m2 Moderately to severely decreased 30 - 44 mL/min/1.73m2 Severely decreased 15 - 29 mL/min/1.73m2 Kidney Failure < 15 mL/min/1.73m2 *Relative to young adult level Estimated glomerular filtration rate is determined by the 2020 CKD-EPI equation recommended by the National Kidney Foundation (A Unifying Approach to GFR Estimation: Recommendations of the NKF-ASK Task Force on Reassessing the Inclusion of Race in Diagnosing Kidney Disease, JASN 2020). The CKD-EPI equation should not be used for patients with unstable renal function and has not been validated in children and those over 70. Current interpretive data was last reviewed 2021. Blood 06/15/2024 10:4 7 AM CDT 06/15/2024 10:59 AM CDT us Jose Miguel Mijares MD LAB BLOOD ORDERABLES Sherry l Result [facility] ([place]) 1 [facility] [place] [address] * (ABNORMAL) eGFR (06/15/2024 10:47 AM CDT) eGFR 57(L) >=60 mL/min/1. 73 m2 Comment: Interpretive Data Reference Interval Normal >/= 90 mL/min/1.73m2 Mildly decreased* 60 - 89 mL/min/1.73m2 Mildly to moderately decreased 45 - 59 mL/min/1.73m2 Moderately to severely decreased 30 - 44 mL/min/1.73m2 Severely decreased 15 - 29 mL/min/1.73m2 Kidney Failure < 15 mL/min/1.73m2 *Relative to young adult level Estimated glomerular filtration rate is determined by the 2020 CKD-EPI equation recommended by the National Kidney Foundation (A Unifying Approach to GFR Estimation: Recommendations of the NKF-ASK Task Force on Reassessing the Inclusion of Race in Diagnosing Kidney Disease, JASN 2020). The CKD-EPI equation should not be used for patients with unstable renal function and has not been validated in children and those over 70. Current interpretive data was last reviewed 2021. Blood 06/15/2024 10:4 7 AM CDT 06/15/2024 10:59 AM CDT us Eladio Kang MD LAB BLOOD ORDERABLES Final Re sult [facility] ([place]) 1 [facility] [place] [address] * Differential, auto (06/15/2024 10:47 AM CDT) Neutrophil abs 4.5 1.5 - 6.5 K/cumm Imm gran abs 0.1 0.0 - 0.1 K/cumm [facility] ([place]) Lymphocyte abs 2.0 0.8 - 3.3 K/cumm [facility] ([place]) Monocyte abs 0.5 0.2 - 0.8 K/cumm [facility] ([place]) Eosinophil abs 0.2 0.0 - 0.5 K/cumm [facility] ([place]) Basophil abs 0.1 0.0 - 0.1 K/cumm [facility] ([place]) Neutrophil pct 60.7 % [facility] ([place]) Comment: Interpretive Data Percent cell count reference ranges are not reported, since discordance with absolute values may lead to misinterpretation of CBC data. Current Interpretive Data was last revised on 2017. Imm gran pct 1.0 % [facility] ([place]) Comment: Interpretive Data Percent cell count reference ranges are not reported, since discordance with absolute values may lead to misinterpretation of CBC data. Current Interpretive Data was last revised on 2017. Lymphocyte pct 27.5 % [facility] ([place]) Comment: Interpretive Data Percent cell count reference ranges are not reported, since discordance with absolute values may lead to misinterpretation of CBC data. Current Interpretive Data was last revised on 2017. Monocyte pct 7.4 % [facility] ([place]) Comment: Interpretive Data Percent cell count reference ranges are not reported, since discordance with absolute values may lead to misinterpretation of CBC data. Current Interpretive Data was last revised on 2017. Eosinophil pct 2.7 % [facility] ([place]) Comment: Interpretive Data Percent cell count reference ranges are not reported, since discordance with absolute values may lead to misinterpretation of CBC data. Current Interpretive Data was last revised on 2017. Basophil pct 0.7 % [facility] ([place]) Comment: Interpretive Data Percent cell count reference ranges are not reported, since discordance with absolute values may lead to misinterpretation of CBC data. Current Interpretive Data was last revised on 2017. Blood 06/15/2024 10:4 7 AM CDT 06/15/2024 10:59 AM CDT us Eladio Kang MD LAB BLOOD ORDERABLES Final Re sult [facility] ([place]) 1 [facility] [place] [address] * PSA screen (06/15/2024 10:47 AM CDT) PSA-Total 0.38 <=5.40 ng/mL Comment: Interpretive Data AGE SEX REFERENCE INTERVAL 0 minutes-150 years Female None 0 minutes-49 years Male None 50-59 years Male 0-3.90 60-69 years Male 0-5.40 70-79 years Male 0-6.20 80-150 years Male 0-6.20 The Cheryl PSA Total assay procedure was used. Results from different manufacturers or methods may not be comparable. Serial testing should be performed using the same method. Current interpretive data last revised 21. Blood 06/15/2024 10:4 7 AM CDT 06/15/2024 10:59 AM CDT us Jose Mgiuel Mijares MD LAB BLOOD ORDERABLES Sherry l Result [facility] ([place]) 1 [facility] [place] [address] * Iron profile w/ IBC (06/15/2024 10:47 AM CDT) Iron 98 50 - 150 mcg/dL TIBC 276 250 - 400 mcg/dL [facility] ([place]) Transferrin saturation 36 20 - 50 % [facility] ([place]) Blood 06/15/2024 10:4 7 AM CDT 06/15/2024 10:59 AM CDT us Jose Miguel Mijares MD LAB BLOOD ORDERABLES Sherry l Result Performing Organization Address City/[facility]/ZIP Co de Phone Number [facility] ([place]) 1 [facility] [employer] [place] [address] * CBC with auto differential (06/15/2024 10:47 AM CDT) WBC 7.3 3.8 - 9.9 K/cumm Hgb 14.4 13.0 - 17.5 g/dL [facility] ([place]) Hct 43.3 38.9 - 50.3 % [facility] ([place]) Plt 162 150 - 400 K/cumm [facility] ([place]) MPV 9.3 9.1 - 12.3 fL [facility] ([place]) RBC 4.71 4.30 - 5.80 M/cumm [facility] ([place]) MCV 91.9 81.3 - 96.4 fL [facility] ([place]) MCH 30.6 27.1 - 33.3 pg [facility] ([place]) MCHC 33.3 32.3 - 35.7 g/dL [facility] ([place]) RDW CV 12.5 11.1 - 14.9 % [facility] ([place]) RDW SD 42.2 35.7 - 48.1 fL [facility] ([place]) NRBC abs 0.00 0.00 - 0.01 K/cumm [facility] ([place]) Blood 06/15/2024 10:4 7 AM CDT 06/15/2024 10:59 AM CDT Eladio Kang MD LAB BLOOD ORDERABLES Final Re sult Performing Organization Address [facility] [[email or web address]] de Phone Number [facility] ([place]) [address] [place] [address] [place] [employer] [place] [address] * Protein / creatinine ratio, urine, random (06/15/2024 10:47 AM CDT) Protein, ur, quant 7.0 mg/dL Comment: Interpretive Data No reference range established. Current interpretive data was last revised 2018. Creatinine Ur 52.2 mg/dL [facility] ([place]) Comment: Interpretive Data No reference range established. Current interpretive data was last revised 2018. Protein/creatinin e ratio 134.1 0.0 - 180.0 mg/g CR [facility] ([place]) Urine 06/15/2024 10:4 7 AM CDT 06/15/2024 11:24 AM CDT Eladio Kang MD LAB URINE ORDERABLES Final Re sult Performing Organization Address City/[facility] Co de Phone Number [facility] ([place]) 1 [facility] [place] [address] * CBC without differential (06/15/2024 10:47 AM CDT) WBC 7.4 3.8 - 9.9 K/cumm Hgb 14.6 13.0 - 17.5 g/dL [facility] ([place]) Hct 43.0 38.9 - 50.3 % [facility] ([place]) Plt 161 150 - 400 K/cumm [facility] ([place]) MPV 9.5 9.1 - 12.3 fL [facility] ([place]) RBC 4.69 4.30 - 5.80 M/cumm [facility] ([place]) MCV 91.7 81.3 - 96.4 fL [facility] ([place]) MCH 31.1 27.1 - 33.3 pg [facility] ([place]) MCHC 34.0 32.3 - 35.7 g/dL [facility] ([place]) RDW CV 12.5 11.1 - 14.9 % [facility] ([place]) RDW SD 41.2 35.7 - 48.1 fL [facility] ([place]) NRBC abs 0.00 0.00 - 0.01 K/cumm [facility] ([place]) Blood 06/15/2024 10:4 7 AM CDT 06/15/2024 10:59 AM CDT us Jose Miguel Mijares MD LAB BLOOD ORDERABLES Sherry bailey Result [facility] ([place]) 1 [facility] Department of Laboratories [place], [place] [address] * Hemoglobin A1c (06/15/2024 10:47 AM CDT) Hgb A1C 5.4 4.0 - 5.6 % Estimated Average Glucose 108 mg/dL [facility] ([place]) Comment: The ADA recommends reporting an estimated Average Glucose (eAG) with all Hemoglobin A1c results using the equation derived from a study of 507 normal and diabetic adults. Minority populations were underrepresented and children were not included. (Diabetes Care 31:3097-8210, 2008). The eAG is not equivalent to a fasting glucose. Blood 06/15/2024 10:4 7 AM CDT 06/15/2024 10:59 AM CDT us Jose Miguel Mijares MD LAB BLOOD ORDERABLES Sherry l Result Performing Organization Address [facility] Co de Phone Number [facility] ([place]) 1 [facility] [place] [address] * Hemoglobin A1c (06/15/2024 10:47 AM CDT) Hgb A1C 5.2 4.0 - 5.6 % Estimated Average Glucose 103 mg/dL [facility] ([place]) Comment: The ADA recommends reporting an estimated Average Glucose (eAG) with all Hemoglobin A1c results using the equation derived from a study of 507 normal and diabetic adults. Minority populations were underrepresented and children were not included. (Diabetes Care 31:6087-7073, 2008). The eAG is not equivalent to a fasting glucose. Blood 06/15/2024 10:4 7 AM CDT 06/15/2024 10:59 AM CDT us Eladio Kang MD LAB BLOOD ORDERABLES Final Re sult Performing Organization Address [facility] Co de Phone Number [facility] ([place]) 1 [facility] [place] [address] * Ferritin (06/15/2024 10:47 AM CDT) Ferritin 214 30 - 400 ng/mL Blood 06/15/2024 10:4 7 AM CDT 06/15/2024 10:59 AM CDT us Jose Miguel Mijares MD LAB BLOOD ORDERABLES Sherry l Result Performing Organization Address [facility] Co de Phone Number [facility] ([place]) 1 [facility] [place] [address] * (ABNORMAL) Renal function panel (06/15/2024 10:47 AM CDT) Sodium 142 135 - 145 mmol/L Potassium, pl 5.1(H) 3.3 - 4.9 mmol/L [facility] ([place]) Chloride 105 97 - 110 mmol/L [facility] ([place]) CO2 29 22 - 32 mmol/L [facility] ([place]) Anion gap 8 2 - 15 mmol/L [facility] ([place]) BUN 17 6 - 25 mg/dL [facility] ([place]) Creatinine 1.35(H) 0.80 - 1.30 mg/dL [facility] ([place]) Glucose 81 70 - 199 mg/dL [facility] ([place]) Comment: Interpretive Data Fasting glucose >/= 126 mg/dl is diagnostic for diabetes. Fasting is defined as no caloric intake for at least 8 hours. Fasting glucose between 100 mg/dl to 125 mg/dl is diagnostic of prediabetes. In a patient with classic symptoms of hyperglycemia or hyperglycemic crisis, a random glucose >/= 200 mg/dl is diagnostic for diabetes. In the absence of unequivocal hyperglycemia, results should be confirmed by repeat testing. The classification and Diagnosis of Diabetes Diabetes Care 202; 46: S19-S40. Current interpretive data was last revised 2022. Calcium 9.3 8.5 - 10.3 mg/dL [facility] ([place]) Phosphorus, pl 3.0 2.3 - 4.5 mg/dL [facility] ([place]) Albumin 4.3 3.5 - 5.0 g/dL [facility] ([place]) Blood 06/15/2024 10:4 7 AM CDT 06/15/2024 10:59 AM CDT Eladio Kang MD LAB BLOOD ORDERABLES Final Re sult [facility] ([place]) 1 [facility] [place] [address] * Lipid panel (06/15/2024 10:47 AM CDT) Cholesterol 146 30 - 199 mg/dL Comment: Interpretive Data Ages < or = 19 years Acceptable: <170 mg/dL Borderline high: 170-199 mg/dL High: >or= 200 mg/dL Ages > or = 20 years Desirable: <200 mg/dL Borderline high: 200-239 mg/dL High: >or= 240 mg/dL Literature References: 1. Expert Panel on Integrated Guidelines for Cardiovascular Health and Risk Reduction in Children and Adolescents. Pediatrics 2011;128:S213 2. NCEP Expert Panel. Circulation 2004;110:227 Current Interpretive Data was last revised on 2017. Triglycerides 131 <=149 mg/dL [facility] ([place]) Comment: Interpretive Data Ages < or = 9 years Acceptable: <75 mg/dL Borderline high: 75-99 mg/dL High: >or= 100 mg/dL Ages 10 to 20 years Acceptable: <90 mg/dL Borderline high: 90-129 mg/dL High: >or= 130 mg/dL Ages > or = 20 years Desirable: <150 mg/dL Borderline high: 150-199 mg/dL High: 200-499 mg/dL Very high: >or= 499 mg/dL Literature References: 1. Expert Panel on Integrated Guidelines for Cardiovascular Health and Risk Reduction in Children and Adolescents. Pediatrics 2011;128:S213 2. NCEP Expert Panel. Circulation 2004;110:227 Current Interpretive Data was last revised on 2017. HDL 46 >=40 mg/dL [facility] ([place]) Comment: Interpretive Data Ages < or = 19 years Acceptable: >45 mg/dL Borderline low: 40-45 mg/dL Low: <40 mg/dL Ages > or = 20 years Desirable: >or= 60 mg/dL Low: <40 mg/dL Literature References: 1. Expert Panel on Integrated Guidelines for Cardiovascular Health and Risk Reduction in Children and Adolescents. Pediatrics 2011;128:S213 2. NCEP Expert Panel. Circulation 2004;110:227 Current Interpretive Data was last revised on 2017. LDL, calculated 77 <=129 mg/dL [facility] ([place]) Comment: Interpretive Data Ages < or = 19 years Acceptable: <110 mg/dL Borderline high: 110-129 mg/dL High: >or= 130 mg/dL Ages > or = 20 years Optimal: <100 mg/dL Near optimal: 100-129 mg/dL Borderline high: 130-159 mg/dL High: >160 mg/dL Calculated using the Zuleta LDL-C estimating equation. This equation was implemented on 2023. Prior to this date LDL-C was estimated using the Friedewald equation. Literature References: 1. Expert Panel on Integrated Guidelines for Cardiovascular Health and Risk Reduction in Children and Adolescents. Pediatrics 2011;128:S213 2. NCEP Expert Panel. Circulation 2004;110:227 3. Song M et al. KATE Cardiol. 2019August 06;5(5):540-548. doi: 10.1001/[email or web address] Current Interpretive Data was last revised on 2023. Non-HDL Cholesterol 100 mg/dL [facility] ([place]) Comment: Interpretive Data Ages < or = 19 years Acceptable: <120 mg/dL Borderline high: 120-144 mg/dL High: >145 mg/dL Ages > or = 20 years When triglycerides are >200 mg/dL, Non-HDL cholesterol is a secondary target of therapy with treatment goals that are 30 mg/dL greater than the LDL cholesterol target. Literature References: 1. Expert Panel on Integrated Guidelines for Cardiovascular Health and Risk Reduction in Children and Adolescents. Pediatrics 2011;128:S213 2. NCEP Expert Panel. Circulation 2004;110:227 Current Interpretive Data was last revised on 2017. Chol/HDL ratio 3 [facility] ([place]) Blood 06/15/2024 10:4 7 AM CDT 06/15/2024 10:59 AM CDT us Jose Miguel Mijares MD LAB BLOOD ORDERABLES Sherry bailey Result [facility] ([place] 1 [facility] [place] [address] * (ABNORMAL) Comprehensive metabolic panel (06/15/2024 10:47 AM CDT) Sodium 141 135 - 145 mmol/L Potassium, pl 5.0(H) 3.3 - 4.9 mmol/L [facility] ([place]) Chloride 105 97 - 110 mmol/L [facility] ([place]) CO2 26 22 - 32 mmol/L [facility] ([place]) Anion gap 10 2 - 15 mmol/L [facility] ([place]) BUN 17 6 - 25 mg/dL [facility] ([place]) Creatinine 1.38(H) 0.80 - 1.30 mg/dL [facility] ([place]) Glucose 83 70 - 199 mg/dL [facility] ([place]) Comment: Interpretive Data Fasting glucose >/= 126 mg/dl is diagnostic for diabetes. Fasting is defined as no caloric intake for at least 8 hours. Fasting glucose between 100 mg/dl to 125 mg/dl is diagnostic of prediabetes. In a patient with classic symptoms of hyperglycemia or hyperglycemic crisis, a random glucose >/= 200 mg/dl is diagnostic for diabetes. In the absence of unequivocal hyperglycemia, results should be confirmed by repeat testing. The classification and Diagnosis of Diabetes Diabetes Care 202; 46: S19-S40. Current interpretive data was last revised 2022. Calcium 9.1 8.5 - 10.3 mg/dL [facility] ([place]) Bilirubin, total 0.5 0.1 - 1.2 mg/dL [facility] ([place]) Protein, pl 7.0 6.5 - 8.5 g/dL [facility] ([place]) Albumin 4.4 3.5 - 5.0 g/dL [facility] ([place]) Alk phos 76 40 - 130 Units/L [facility] ([place]) ALT 16 7 - 55 Units/L [facility] ([place]) AST 20 10 - 50 Units/L [facility] ([place]) Comment:Slightly Hemolyzed S pecimen Blood 06/15/2024 10:4 7 AM CDT 06/15/2024 10:59 AM CDT us Jose Miguel Mijares MD LAB BLOOD ORDERABLES Sherry bailey Result [facility] ([place]) 1 [facility] [place] [address] * COLONOSCOPY REPORT (11/13/2012) Anatomical Region Laterality Modality Other Narrative 11/13/2012 Ordered by an unspecified provider. us Historical Provider GI PROCEDURE ORDERABLES F inal Result from Last 3 Months or Most Recently Relevant to Health Maintenance Insurance MEDICARE [place] MEDICARE IDPA MEDICARE [facility] MEDICARE [facility] Address: [id number] [place] [id number] [facility] Advance Directives For more information, please contact: [phone] * Full Code (Latest Code Status on File) Date Activated Date Inactivated Comments 03/09/2020 9:39 PM 03/16/2020 1:42 AM * Full Code Date Activated Date Inactivated Comments 04/07/2018 10:16 PM 04/14/2018 7:02 PM Care Teams Kitchen Steward/Stewardess Relationship Specialty Start Date End Date Jose Miguel Mijares MD [address] [facility] [place] [address] PCP - General Family Practice 03/21/23 Eladio Kang MD Consulting Physician Nephrology 04/14/18 Gloria Gusamn MD [address] [place] [address] [place] [address] Pulmonary Disease 04/14/18 Judah De DPM [address] [facility] [place] [address] Consulting Physician Foot and Ankle Surg 04/14/18
--- OUTSIDE RECORDS SUMMARY | 2024-08-06 17:55 | XMS_ITS | Patient Health Record ---
Author Organization [facility] As [employer] Address [address] [place] [address] Care Team Providers Care Rn Teacher Name Role Phone Jose Miguel Mijares MD Primary Care Provider Andreea Cain Unavailable [phone] Migration, Provider Unavailable Unavailable Allergies No Known Allergies Reason For Referral No Information Medications Medication SIG (Take, Route, Frequency, Duration) Notes Start Date End Date Status Atorvastatin Calcium 20 MG Oral 08/02/2023 Active Austedo 12 MG 1 tablet with food Orally Twice a day for 30 days 03/17/2024 Not-Taking True Metrix Blood Glucose Test In Vitro 08/02/2023 Active traZODone HCl 100 MG 1 tablet at bedtime Oral bedtime for 30 days d/c 50 mg dose Active Cyclobenzaprine HCl 10 MG Oral 08/02/2023 Active Januvia 50 MG Oral 08/02/2023 Not-T aking Caplyta 42 MG 1 capsule Oral Once a day for 30 days *Reorder from [facility] for eRx and Interaction Alerts* Active Pregabalin 100 MG Oral 08/02/2023 A ctive Ondansetron HCl 4 MG Oral 08/02/2023 Not-Taking Ondansetron 4 MG Oral 08/02/2023 Ac tive Austedo 9 mg Oral 08/02/2023 Not-Ta brodie Austedo XR 18 MG 1 tablet Orally Once a day for 30 days Active Vascepa 1 GM Oral 08/02/2023 Active AUSTEDO XR 12 MG TABLET,EXTENDED RELEASE *Reorder from [facility] for eRx and Interaction Alerts* 08/02/2023 Not-Taking amLODIPine Besylate 5 MG Oral 08/02/2023 Active HYDROcodone-Acetamino phen 10-325 MG Oral 08/02/2023 Active TRUEPLUS LANCETS 28 gauge MISCELLANEOUS *Reorder from [facility] for eRx and Interaction Alerts* 08/02/2023 Active Naloxone HCl 4 MG/0.1ML Nasal 08/02/2023 Active Immunizations Vaccine Route Administration Date Status Comme nts Influenza virus vaccine, quadrivalent (IIV4), split virus, 0.25 mL dosage Unknown 01/06/2018 Administered Influenza virus vaccine, quadrivalent (IIV4), split virus, 0.25 mL dosage Unknown 01/21/2020 Administered Influenza virus vaccine, quadrivalent (IIV4), split virus, 0.25 mL dosage Unknown 01/29/2022 Administered Pfizer Biontech Covid-19 Vac cine 2nd dose Unknown 06/09/2020 Administered Pfizer [employer] Covid-19 Vac cine 2nd dose Unknown 06/30/2020 Administered Pfizer-Biontech Covid-19 Vac cine 1st dose Unknown 01/18/2022 Administered Pneumococcal conjugate PCV 13 Unknown 04/08/2017 Admini stered Pneumococcal conjugate PCV 7 Unknown 04/08/2016 Adminis tered Pneumococcal polysaccharide PPV23 Unknown 01/21/2020 Ad ministered Tdap Unknown 04/08/2009 Administered Zoster Unknown 10/20/2019 Administered Social History Sex Assigned At : Social History Observation Description Sex Assigned At Male Problems Problem Type SNOMED Code ICD Code Onset Dates Problem Status W/U Status Risk Notes Problem Schizoaffective disorder, bipolar type (08083252) Schizoaffective disorder, bipolar type (F25.0) 08/02/19 Active confirmed Problem Generalized anxiety disorder (14515277) Generalized anxiety disorder (F41.1) 08/02/19 24 Active confirmed Problem Primary insomnia (0851104) Primary insomnia (F51.01) 08/02/19 Active confirmed Problem 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) Drug induced subacute dyskinesia (G24.01) 08/02/19 Active confirmed Problem Long-term current use of drug therapy (430931509) 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) 07/16/19 Active confirmed Vital Signs Heart Rate 68 /min 06/11/2024 Height-cm 172.72 cm 06/11/2024 Blood pressure diastolic 84 mm Hg 06/11/2024 Weight-kg 141.52 kg 06/11/2024 Height 68.00 in 06/11/2024 Blood pressure systolic 138 mm Hg 06/11/2024 Weight 312 lbs 06/11/2024 BMI 47.43 kg/m2 06/11/2024 Encounters Encounter Location Date Provider Diagnosis [facility] [address] [facility] [address] [place] [address] 11/11/2023 Andreea Layne Schizoaffective disorder, bipolar type F25.0 ; Generalized anxiety disorder F41.1 ; Primary insomnia F51.01 ; Drug induced subacute dyskinesia G24.01 and 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 Z79.899 [facility], [facility] [address] [address] 02/20/2024 Andreea Layne [facility], [facility] [address] [address] 02/25/2024 Andreea Layne [facility], [facility] [address] [facility] [address] [place] [address] 02/25/2024 Andreea Layne Schizoaffective disorder, bipolar type F25.0 ; Generalized anxiety disorder F41.1 ; Primary insomnia F51.01 ; Drug induced subacute dyskinesia G24.01 and Other senior living (current) drug therapy Z79.899 [facility] [employer], [facility] [address] [address] 04/30/2024 Andreea Layne [facility], [facility] [address] [facility] [address] [place] [address] 06/11/2024 Andreea Layne Schizoaffective disorder, bipolar type F25.0 ; Generalized anxiety disorder F41.1 ; Primary insomnia F51.01 ; Drug induced subacute dyskinesia G24.01 and 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 Z79.899 [facility], [facility] [address] [facility] [address] [place] [address] 08/24/2023 Provider Migration [facility], [facility] [address] [address] 08/25/2023 Provider Migration [facility], [facility] [address] [place] [address] 09/20/2023 Andreea Thery [facility], [facility] [address] [place] [address] 10/02/2023 Andreea Thery [facility], [facility] [address] [place] [address] 10/04/2023 Andreea Thery Drug induced subacut e dyskinesia G24.01 [facility], [facility] [address] [place] [address] 10/04/2023 Andreea Thery Drug induced subacut e dyskinesia G24.01 [facility], [facility] [address] [place] [address] 10/11/2023 Andreea Thery [facility], [facility] [address] [place] [address] 10/17/2023 Andreea Thery [facility], [facility] [address] [place] [address] 10/17/2023 Andreea Thery [facility], [facility] [address] [place] [address] 10/21/2023 Andreea Thery Drug induced subacut e dyskinesia G24.01 [facility], [facility] [address] [place] [address] 10/23/2023 Andreea Thery [facility], [facility] [address] [place] [address] 02/21/2024 Andreea Thery [facility], [facility] [address] [place] [address] 03/17/2024 Andreea Thery Drug induced subacut e dyskinesia G24.01 [facility], [facility] [address] [place] [address] 04/16/2024 Andreea Thery Assessments Encounter Date Diagnosis (ICD Code) Assessment Notes Treatment Notes Treatment Clinical Notes Section Notes 10/04/2023 Drug induced subacute dyskinesia (ICD-10 - G24.01) Electronic Prior Authorization was requested for Austedo 12 MG Tablet. Provider can order medication once approval received. 11/11/2023 Schizoaffective disorder, bipolar type (ICD-10 - F25.0) Learning About Schizoaffective Disorder material was published, Learning About How to Get Help During a Mental Health Crisis material was published, Learning About Psychiatric Advance Directives material was published, Learning About Schizoaffective Disorder material was published, Learning About How to Get Help During a Mental Health Crisis material was published, Learning About Psychiatric Advance Directives material was published 1. Schizoaffective disorder, bipolar type - monitor for zack and mood may add Depakote if have zack discuss with patientmonitor kidney function improved per patient labs [facility] Caplyta 42 mg daily eat with medication, mood improved, no hand shaking and cognitive improved, educated on metabolic and movement d/o no control substances prescribed educated on risk monitor for zack all meds go to [facility] and pill pack 2. Tardive dyskinesia - discuss Austedo XR 18 mg daily start rx 05/14/23 - [facility] EDUCATED on all medications see Neurologist obtain labs PCP AIMS= 2 DENTURES 11/12/22 3. Generalized anxiety disorder -monitor no control substances Medication Management and Follow-Up- Plan:- Schedule follow-up appointments every 2-3 months to monitor the patient's response to the medication regimen.- Reinforce the importance of avoiding recreational drug use due to potential neurotoxicity and interactions with prescribed medications. 4. Primary insomnia - Increase Trazodone 100 mg at bedtime - will take as needed NO ambien 5. Early onset Alzheimer's disease with behavioral disturbance -monitor Namzaric d/c in hospital G30.0: Alzheimer's disease with early onset 6. Long-term drug therapy -no control substance prescribed by [facility] patient has pain rx and medical cannabis 11/11/2023 Generalized anxiety disorder (ICD-10 - F41.1) Learning About Generalized Anxiety Disorder material was published, Generalized Anxiety Disorder: Care Instructions material was published, Learning About Anxiety Disorders material was published, Learning About Generalized Anxiety Disorder material was published, Generalized Anxiety Disorder: Care Instructions material was published, Learning About Anxiety Disorders material was published 1. Schizoaffective disorder, bipolar type - monitor for zack and mood may add Depakote if have zack discuss with patientmonitor kidney function improved per patient labs AMH Caplyta 42 mg daily eat with medication, mood improved, no hand shaking and cognitive improved, educated on metabolic and movement d/o no control substances prescribed educated on risk monitor for zack all meds go to [facility] and pill pack 2. Tardive dyskinesia - discuss Austedo XR 18 mg daily start rx 05/14/23 - [facility] EDUCATED on all medications see Neurologist obtain labs PCP AIMS= 2 DENTURES 11/12/22 3. Generalized anxiety disorder -monitor no control substances Medication Management and Follow-Up- Plan:- Schedule follow-up appointments every 2-3 months to monitor the patient's response to the medication regimen.- Reinforce the importance of avoiding recreational drug use due to potential neurotoxicity and interactions with prescribed medications. 4. Primary insomnia - Increase Trazodone 100 mg at bedtime - will take as needed NO ambien 5. Early onset Alzheimer's disease with behavioral disturbance -monitor Namzaric d/c in hospital G30.0: Alzheimer's disease with early onset 6. Long-term drug therapy -no control substance prescribed by [facility] patient has pain rx and medical cannabis 02/25/2024 Schizoaffective disorder, bipolar type (ICD-10 - F25.0) Learning About Schizoaffective Disorder material was published, Learning About How to Get Help During a Mental Health Crisis material was published, Learning About Psychiatric Advance Directives material was published, Learning About Schizoaffective Disorder material was published, Learning About How to Get Help During a Mental Health Crisis material was published, Learning About Psychiatric Advance Directives material was published 1. Schizoaffective disorder, bipolar type - monitor for zack and mood may add Depakote if have zack discuss with patientmonitor kidney function improved per patient labs AMH Caplyta 42 mg daily eat with medication, mood improved, no hand shaking and cognitive improved, educated on metabolic and movement d/o no control substances prescribed educated on risk monitor for zack all meds go to [facility] and pill pack 2. Tardive dyskinesia - discuss and educated on Austedo XR 18 mg daily start rx 05/14/23 - [facility] EDUCATED on all medications see Neurologist obtain labs PCP AIMS= 2 DENTURES 11/12/22 3. Generalized anxiety disorder -monitor no control substances Medication Management and Follow-Up- Plan:- Schedule follow-up appointments every 2-3 months to monitor the patient's response to the medication regimen.- Reinforce the importance of avoiding recreational drug use due to potential neurotoxicity and interactions with prescribed medications. 4. Primary insomnia - Trazodone 100 mg at bedtime - NO ambien 5. Early onset Alzheimer's disease with behavioral disturbance -monitor Namzaric d/c in hospital 6. Long-term drug therapy -no control substance prescribed by [facility] patient has pain rx and medical cannabis 03/17/2024 Drug induced subacute dyskinesia (ICD-10 - G24.01) Electronic Prior Authorization was requested for Austedo 12 MG Tablet. Provider can order medication once approval received. 06/11/2024 Schizoaffective disorder, bipolar type (ICD-10 - F25.0) Learning About Schizoaffective Disorder material was published, Learning About How to Get Help During a Mental Health Crisis material was published, Learning About Psychiatric Advance Directives material was published, Learning About Schizoaffective Disorder material was published, Learning About How to Get Help During a Mental Health Crisis material was published, Learning About Psychiatric Advance Directives material was published 1. Schizoaffective disorder, bipolar type - monitor for zack and mood stable may add Depakote if have zack discuss with patientmonitor kidney function improved per patient labs AMH Caplyta 42 mg daily eat with medication, mood improved, no hand shaking and cognitive improved, educated on metabolic and movement d/o no control substances prescribed educated on risk monitor for zack all meds go to [facility] [employer] and pill pack 2. Tardive dyskinesia - Austedo XR 18 mg daily start rx 05/14/23 - [facility] EDUCATED on all medications see Neurologist obtain labs PCP AIMS= 2 DENTURES 11/12/22 3. Generalized anxiety disorder -monitor no control substances Medication Management and Follow-Up- Plan:- Schedule follow-up appointments every 2-3 months to monitor the patient's response to the medication regimen.- Reinforce the importance of avoiding recreational drug use due to potential neurotoxicity and interactions with prescribed medications. 4. Primary insomnia - Trazodone 100 mg at bedtime - will take as needed NO ambien 5. Early onset Alzheimer's disease with behavioral disturbance -monitor Namzaric d/c in hospital 6. Long-term drug therapy -no control substance prescribed by [facility] patient has pain rx and medical cannabis 10/04/2023 Drug induced subacute dyskinesia (ICD-10 - G24.01) Electronic Prior Authorization was requested for Austedo XR 6 MG Tablet Extended Release 24 Hour. Provider can order medication once approval received. 06/11/2024 Generalized anxiety disorder (ICD-10 - F41.1) Learning About Generalized Anxiety Disorder material was published, Generalized Anxiety Disorder: Care Instructions material was published, Learning About Anxiety Disorders material was published, Learning About Generalized Anxiety Disorder material was published, Generalized Anxiety Disorder: Care Instructions material was published, Learning About Anxiety Disorders material was published 1. Schizoaffective disorder, bipolar type - monitor for zack and mood stable may add Depakote if have zack discuss with patientmonitor kidney function improved per patient labs AMH Caplyta 42 mg daily eat with medication, mood improved, no hand shaking and cognitive improved, educated on metabolic and movement d/o no control substances prescribed educated on risk monitor for zack all meds go to [facility] [employer] and pill pack 2. Tardive dyskinesia - Austedo XR 18 mg daily start rx 05/14/23 - [facility] EDUCATED on all medications see Neurologist obtain labs PCP AIMS= 2 DENTURES 11/12/22 3. Generalized anxiety disorder -monitor no control substances Medication Management and Follow-Up- Plan:- Schedule follow-up appointments every 2-3 months to monitor the patient's response to the medication regimen.- Reinforce the importance of avoiding recreational drug use due to potential neurotoxicity and interactions with prescribed medications. 4. Primary insomnia - Trazodone 100 mg at bedtime - will take as needed NO ambien 5. Early onset Alzheimer's disease with behavioral disturbance -monitor Namzaric d/c in hospital 6. Long-term drug therapy -no control substance prescribed by [facility] patient has pain rx and medical cannabis 02/25/2024 Generalized anxiety disorder (ICD-10 - F41.1) Learning About Generalized Anxiety Disorder material was published, Generalized Anxiety Disorder: Care Instructions material was published, Learning About Anxiety Disorders material was published, Learning About Generalized Anxiety Disorder material was published, Generalized Anxiety Disorder: Care Instructions material was published, Learning About Anxiety Disorders material was published 1. Schizoaffective disorder, bipolar type - monitor for zack and mood may add Depakote if have zack discuss with patientmonitor kidney function improved per patient labs AMH Caplyta 42 mg daily eat with medication, mood improved, no hand shaking and cognitive improved, educated on metabolic and movement d/o no control substances prescribed educated on risk monitor for zack all meds go to [facility] [employer] and pill pack 2. Tardive dyskinesia - discuss and educated on Austedo XR 18 mg daily start rx 05/14/23 - [facility] EDUCATED on all medications see Neurologist obtain labs PCP AIMS= 2 DENTURES 11/12/22 3. Generalized anxiety disorder -monitor no control substances Medication Management and Follow-Up- Plan:- Schedule follow-up appointments every 2-3 months to monitor the patient's response to the medication regimen.- Reinforce the importance of avoiding recreational drug use due to potential neurotoxicity and interactions with prescribed medications. 4. Primary insomnia - Trazodone 100 mg at bedtime - NO ambien 5. Early onset Alzheimer's disease with behavioral disturbance -monitor Namzaric d/c in hospital 6. Long-term drug therapy -no control substance prescribed by [facility] patient has pain rx and medical cannabis 11/11/2023 Primary insomnia (ICD-10 - F51.01) Insomnia: Care Instructions material was published, Learning About Sleeping Well material was published, Insomnia: Care Instructions material was published, Learning About Sleeping Well material was published 1. Schizoaffective disorder, bipolar type - monitor for zack and mood may add Depakote if have zack discuss with patientmonitor kidney function improved per patient labs AMH Caplyta 42 mg daily eat with medication, mood improved, no hand shaking and cognitive improved, educated on metabolic and movement d/o no control substances prescribed educated on risk monitor for zack all meds go to [facility] [employer] and pill pack 2. Tardive dyskinesia - discuss Austedo XR 18 mg daily start rx 05/14/23 - [facility] EDUCATED on all medications see Neurologist obtain labs PCP AIMS= 2 DENTURES 11/12/22 3. Generalized anxiety disorder -monitor no control substances Medication Management and Follow-Up- Plan:- Schedule follow-up appointments every 2-3 months to monitor the patient's response to the medication regimen.- Reinforce the importance of avoiding recreational drug use due to potential neurotoxicity and interactions with prescribed medications. 4. Primary insomnia - Increase Trazodone 100 mg at bedtime - will take as needed NO ambien 5. Early onset Alzheimer's disease with behavioral disturbance -monitor Namzaric d/c in hospital G30.0: Alzheimer's disease with early onset 6. Long-term drug therapy -no control substance prescribed by [facility] patient has pain rx and medical cannabis 10/21/2023 Drug induced subacute dyskinesia (ICD-10 - G24.01) Electronic Prior Authorization was requested for Austedo XR 6 MG Tablet Extended Release 24 Hour. Provider can order medication once approval received. Electronic Prior Authorization was requested for Austedo XR 24 MG Tablet Extended Release 24 Hour. Provider can order medication once approval received. 11/11/2023 Drug induced subacute dyskinesia (ICD-10 - G24.01) Tardive Dyskinesia (TD): Care Instructions material was published, Learning About Movement Disorders From Antipsychotic Medicines material was published, Tardive Dyskinesia (TD): Care Instructions material was published, Learning About Movement Disorders From Antipsychotic Medicines material was published 1. Schizoaffective disorder, bipolar type - monitor for zack and mood may add Depakote if have zack discuss with patientmonitor kidney function improved per patient labs AMH Caplyta 42 mg daily eat with medication, mood improved, no hand shaking and cognitive improved, educated on metabolic and movement d/o no control substances prescribed educated on risk monitor for zack all meds go to [facility] [employer] and pill pack 2. Tardive dyskinesia - discuss Austedo XR 18 mg daily start rx 05/14/23 - [facility] EDUCATED on all medications see Neurologist obtain labs PCP AIMS= 2 DENTURES 11/12/22 3. Generalized anxiety disorder -monitor no control substances Medication Management and Follow-Up- Plan:- Schedule follow-up appointments every 2-3 months to monitor the patient's response to the medication regimen.- Reinforce the importance of avoiding recreational drug use due to potential neurotoxicity and interactions with prescribed medications. 4. Primary insomnia - Increase Trazodone 100 mg at bedtime - will take as needed NO ambien 5. Early onset Alzheimer's disease with behavioral disturbance -monitor Namzaric d/c in hospital G30.0: Alzheimer's disease with early onset 6. Long-term drug therapy -no control substance prescribed by [facility] patient has pain rx and medical cannabis 02/25/2024 Primary insomnia (ICD-10 - F51.01) Insomnia: Care Instructions material was published, Learning About Sleeping Well material was published, Insomnia: Care Instructions material was published, Learning About Sleeping Well material was published 1. Schizoaffective disorder, bipolar type - monitor for zack and mood may add Depakote if have zack discuss with patientmonitor kidney function improved per patient labs AMH Caplyta 42 mg daily eat with medication, mood improved, no hand shaking and cognitive improved, educated on metabolic and movement d/o no control substances prescribed educated on risk monitor for zack all meds go to [facility] [employer] and pill pack 2. Tardive dyskinesia - discuss and educated on Austedo XR 18 mg daily start rx 05/14/23 - [facility] EDUCATED on all medications see Neurologist obtain labs PCP AIMS= 2 DENTURES 11/12/22 3. Generalized anxiety disorder -monitor no control substances Medication Management and Follow-Up- Plan:- Schedule follow-up appointments every 2-3 months to monitor the patient's response to the medication regimen.- Reinforce the importance of avoiding recreational drug use due to potential neurotoxicity and interactions with prescribed medications. 4. Primary insomnia - Trazodone 100 mg at bedtime - NO ambien 5. Early onset Alzheimer's disease with behavioral disturbance -monitor Namzaric d/c in hospital 6. Long-term drug therapy -no control substance prescribed by [facility] patient has pain rx and medical cannabis 06/11/2024 Primary insomnia (ICD-10 - F51.01) Insomnia: Care Instructions material was published, Learning About Sleeping Well material was published, Insomnia: Care Instructions material was published, Learning About Sleeping Well material was published 1. Schizoaffective disorder, bipolar type - monitor for zack and mood stable may add Depakote if have zack discuss with patientmonitor kidney function improved per patient labs AMH Caplyta 42 mg daily eat with medication, mood improved, no hand shaking and cognitive improved, educated on metabolic and movement d/o no control substances prescribed educated on risk monitor for zack all meds go to [facility] and pill pack 2. Tardive dyskinesia - Austedo XR 18 mg daily start rx 05/14/23 - [facility] EDUCATED on all medications see Neurologist obtain labs PCP AIMS= 2 DENTURES 11/12/22 3. Generalized anxiety disorder -monitor no control substances Medication Management and Follow-Up- Plan:- Schedule follow-up appointments every 2-3 months to monitor the patient's response to the medication regimen.- Reinforce the importance of avoiding recreational drug use due to potential neurotoxicity and interactions with prescribed medications. 4. Primary insomnia - Trazodone 100 mg at bedtime - will take as needed NO ambien 5. Early onset Alzheimer's disease with behavioral disturbance -monitor Namzaric d/c in hospital 6. Long-term drug therapy -no control substance prescribed by [facility] patient has pain rx and medical cannabis 06/11/2024 Drug induced subacute dyskinesia (ICD-10 - G24.01) Tardive Dyskinesia (TD): Care Instructions material was published, Learning About Movement Disorders From Antipsychotic Medicines material was published, Tardive Dyskinesia (TD): Care Instructions material was published, Learning About Movement Disorders From Antipsychotic Medicines material was published 1. Schizoaffective disorder, bipolar type - monitor for zack and mood stable may add Depakote if have zack discuss with patientmonitor kidney function improved per patient labs AMH Caplyta 42 mg daily eat with medication, mood improved, no hand shaking and cognitive improved, educated on metabolic and movement d/o no control substances prescribed educated on risk monitor for zack all meds go to [facility] and pill pack 2. Tardive dyskinesia - Austedo XR 18 mg daily start rx 05/14/23 - [facility] EDUCATED on all medications see Neurologist obtain labs PCP AIMS= 2 DENTURES 11/12/22 3. Generalized anxiety disorder -monitor no control substances Medication Management and Follow-Up- Plan:- Schedule follow-up appointments every 2-3 months to monitor the patient's response to the medication regimen.- Reinforce the importance of avoiding recreational drug use due to potential neurotoxicity and interactions with prescribed medications. 4. Primary insomnia - Trazodone 100 mg at bedtime - will take as needed NO ambien 5. Early onset Alzheimer's disease with behavioral disturbance -monitor Namzaric d/c in hospital 6. Long-term drug therapy -no control substance prescribed by [facility] patient has pain rx and medical cannabis 02/25/2024 Drug induced subacute dyskinesia (ICD-10 - G24.01) Tardive Dyskinesia (TD): Care Instructions material was published, Learning About Movement Disorders From Antipsychotic Medicines material was published, Tardive Dyskinesia (TD): Care Instructions material was published, Learning About Movement Disorders From Antipsychotic Medicines material was published 1. Schizoaffective disorder, bipolar type - monitor for zack and mood may add Depakote if have zack discuss with patientmonitor kidney function improved per patient labs AMH Caplyta 42 mg daily eat with medication, mood improved, no hand shaking and cognitive improved, educated on metabolic and movement d/o no control substances prescribed educated on risk monitor for zack all meds go to [facility] and pill pack 2. Tardive dyskinesia - discuss and educated on Austedo XR 18 mg daily start rx 05/14/23 - [facility] EDUCATED on all medications see Neurologist obtain labs PCP AIMS= 2 DENTURES 11/12/22 3. Generalized anxiety disorder -monitor no control substances Medication Management and Follow-Up- Plan:- Schedule follow-up appointments every 2-3 months to monitor the patient's response to the medication regimen.- Reinforce the importance of avoiding recreational drug use due to potential neurotoxicity and interactions with prescribed medications. 4. Primary insomnia - Trazodone 100 mg at bedtime - NO ambien 5. Early onset Alzheimer's disease with behavioral disturbance -monitor Namzaric d/c in hospital 6. 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 Schizoaffective disorder, bipolar type - monitor for zack and mood may add Depakote if have zack discuss with patientmonitor kidney function improved per patient labs AMH Caplyta 42 mg daily eat with medication, mood improved, no hand shaking and cognitive improved, educated on metabolic and movement d/o no control substances prescribed educated on risk monitor for zack all meds go to [facility] and pill pack 2. Tardive dyskinesia - discuss Austedo XR 18 mg daily start rx 05/14/23 - [facility] EDUCATED on all medications see Neurologist obtain labs PCP AIMS= 2 DENTURES 11/12/22 3. Generalized anxiety disorder -monitor no control substances Medication Management and Follow-Up- Plan:- Schedule follow-up appointments every 2-3 months to monitor the patient's response to the medication regimen.- Reinforce the importance of avoiding recreational drug use due to potential neurotoxicity and interactions with prescribed medications. 4. Primary insomnia - Increase Trazodone 100 mg at bedtime - will take as needed NO ambien 5. Early onset Alzheimer's disease with behavioral disturbance -monitor Namzaric d/c in hospital G30.0: Alzheimer's disease with early onset 6. 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 Schizoaffective disorder, bipolar type - monitor for zack and mood may add Depakote if have zack discuss with patientmonitor kidney function improved per patient labs AMH Caplyta 42 mg daily eat with medication, mood improved, no hand shaking and cognitive improved, educated on metabolic and movement d/o no control substances prescribed educated on risk monitor for zack all meds go to [facility] and pill pack 2. Tardive dyskinesia - discuss and educated on Austedo XR 18 mg daily start rx 05/14/23 - [facility] EDUCATED on all medications see Neurologist obtain labs PCP AIMS= 2 DENTURES 11/12/22 3. Generalized anxiety disorder -monitor no control substances Medication Management and Follow-Up- Plan:- Schedule follow-up appointments every 2-3 months to monitor the patient's response to the medication regimen.- Reinforce the importance of avoiding recreational drug use due to potential neurotoxicity and interactions with prescribed medications. 4. Primary insomnia - Trazodone 100 mg at bedtime - NO ambien 5. Early onset Alzheimer's disease with behavioral disturbance -monitor Namzaric d/c in hospital 6. 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 Schizoaffective disorder, bipolar type - monitor for zack and mood stable may add Depakote if have zack discuss with patientmonitor kidney function improved per patient labs AMH Caplyta 42 mg daily eat with medication, mood improved, no hand shaking and cognitive improved, educated on metabolic and movement d/o no control substances prescribed educated on risk monitor for zack all meds go to [facility] and pill pack 2. Tardive dyskinesia - Austedo XR 18 mg daily start rx 05/14/23 - [facility] EDUCATED on all medications see Neurologist obtain labs PCP AIMS= 2 DENTURES 11/12/22 3. Generalized anxiety disorder -monitor no control substances Medication Management and Follow-Up- Plan:- Schedule follow-up appointments every 2-3 months to monitor the patient's response to the medication regimen.- Reinforce the importance of avoiding recreational drug use due to potential neurotoxicity and interactions with prescribed medications. 4. Primary insomnia - Trazodone 100 mg at bedtime - will take as needed NO ambien 5. Early onset Alzheimer's disease with behavioral disturbance -monitor Namzaric d/c in hospital 6. Long-term drug therapy -no control substance prescribed by [facility] patient has pain rx and medical cannabis 11/11/2023 Other Lumateperone Or al Capsule (LUMATEPERONE - ORAL) material was published, Trazodone Oral Tablet (TRAZODONE - ORAL) material was published, Lumateperone Oral Capsule (LUMATEPERONE - ORAL) material was published, Trazodone Oral Tablet (TRAZODONE - ORAL) material was published, Diet and Exercise for Metabolic Syndrome: Care Instructions material was published 1. Schizoaffective disorder, bipolar type - monitor for zack and mood may add Depakote if have zack discuss with patientmonitor kidney function improved per patient labs AMH Caplyta 42 mg daily eat with medication, mood improved, no hand shaking and cognitive improved, educated on metabolic and movement d/o no control substances prescribed educated on risk monitor for zack all meds go to [facility] and pill pack 2. Tardive dyskinesia - discuss Austedo XR 18 mg daily start rx 05/14/23 - [facility] EDUCATED on all medications see Neurologist obtain labs PCP AIMS= 2 DENTURES 11/12/22 3. Generalized anxiety disorder -monitor no control substances Medication Management and Follow-Up- Plan:- Schedule follow-up appointments every 2-3 months to monitor the patient's response to the medication regimen.- Reinforce the importance of avoiding recreational drug use due to potential neurotoxicity and interactions with prescribed medications. 4. Primary insomnia - Increase Trazodone 100 mg at bedtime - will take as needed NO ambien 5. Early onset Alzheimer's disease with behavioral disturbance -monitor Namzaric d/c in hospital G30.0: Alzheimer's disease with early onset 6. Long-term drug therapy -no control substance prescribed by [facility] patient has pain rx and medical cannabis 02/25/2024 Other 06/11/2024 Other referral to the local chapter or national office of the Alzheimer's Association ( ; http://www.alz.or g), the Alzheimer's Disease Education and Referral Center (ADEAR) ( ; http://www.robi.ni h.gov/Alzheimers/ ), Notes: referral to the local chapter or national office of the Alzheimer's Association ( ; http://www.alz.or g), the Alzheimer's Disease Education and Referral Center (ADEAR) ( ; http://www.robi.ni h.gov/Alzheimers/ ), 1. Schizoaffective disorder, bipolar type - monitor for zack and mood stable may add Depakote if have zack discuss with patientmonitor kidney function improved per patient labs AMH Caplyta 42 mg daily eat with medication, mood improved, no hand shaking and cognitive improved, educated on metabolic and movement d/o no control substances prescribed educated on risk monitor for zack all meds go to [facility] and pill pack 2. Tardive dyskinesia - Austedo XR 18 mg daily start rx 05/14/23 - [facility] EDUCATED on all medications see Neurologist obtain labs PCP AIMS= 2 DENTURES 11/12/22 3. Generalized anxiety disorder -monitor no control substances Medication Management and Follow-Up- Plan:- Schedule follow-up appointments every 2-3 months to monitor the patient's response to the medication regimen.- Reinforce the importance of avoiding recreational drug use due to potential neurotoxicity and interactions with prescribed medications. 4. Primary insomnia - Trazodone 100 mg at bedtime - will take as needed NO ambien 5. Early onset Alzheimer's disease with behavioral disturbance -monitor Namzaric d/c in hospital 6. Long-term drug therapy -no control substance prescribed by [facility] patient has pain rx and medical cannabis Plan Of Treatment Next Appt Details Provider Name:Andreea Layne , 09/29/2024 08:15:00 AM, [address], [facility] [address], [place], [address], Insurance Providers Payer Name Payer Address Payer Phone Subscriber Number Group Number Insured Name Patient Relationship to Insured Coverage Start Date Coverage End Date Medicare-I l Medicare [address] [place] [address] [id number] TALISHA PRUITT Self - patient is the insured Medicaid-I l Medicaid [address] [address] [place] [address] [id number] TALISHA PRUITT Self - patient is the insured Medical (General) History Medical History History ICD Code Problems: 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
--- OUTSIDE RECORDS SUMMARY | 2024-08-06 17:55 | XMS_ITS | CONTINUITY OF CARE DOCUMENT ---
Author Name jackie mejia Address Unknown Organization [facility] Office Address [address] [place] [address] [address] [place] [address] Phone [phone] Care Team Providers Care Employment Interviewer Name Role Phone Colin Murry MD Unavailable VARUN HUNTLEY MD Unavailable [phone] VARUN HUNTLEY MD Unavailable [phone] INSURANCE PROVIDERS Payer name Policy type / Coverage type [place] red republican ID [facility] Other [id number]
--- OUTSIDE RECORDS SUMMARY | 2024-08-06 17:55 | XMS_ITS | Clinical Summary ---
Author Organization [facility] Facility Address [address] [place] [id number] Care Team Providers Care Electric Motor Rebuilder Name Role Phone Jose Miguel Mijares MD Primary Care Provider [phone] Allergies No known active allergies Medications atorvastatin (LIPITOR) 20 MG tablet Take 20 mg by mouth 1 (one) time each day Active ICOSAPENT ETHYL PO Take 2 tablets by mouth 1 (one) time each day Active SITagliptin (JANUVIA) 25 MG tablet Take 25 mg by mouth 1 (one) time each day Active DEUTETRABENAZIN E PO Take 18 mg by mouth 1 (one) time each day Active arformoterol (BROVANA) 15 MCG/2ML nebulizer solution Take 15 mcg by nebulization 2 (two) times a day Active HYDROcodone-renetta taminophen (LORCET PLUS) 10-325 MG per tablet Take 1 tablet by mouth every 6 (six) hours if needed for moderate pain Active aspirin (ST BESSY) 81 MG EC tablet Take 81 mg by mouth 1 (one) time each day Active b complex vitamins capsule Take 1 capsule by mouth 1 (one) time each day Active Lumateperone Tosylate 42 MG capsule Take 1 capsule by mouth 1 (one) time each day Active amLODIPine (NORVASC) 5 MG tablet Take 5 mg by mouth 1 (one) time each day 2 Active pregabalin (LYRICA) 200 MG capsule Take 200 mg by mouth in the morning and 200 mg in the evening. Active budesonide (PULMICORT) 0.5 MG/2ML nebulizer solution Take 0.5 mg by nebulization 1 (one) time each day Rinse mouth with water after use to reduce aftertaste and incidence of candidiasis. Do not swallow. Active IPRATROPIUM BROMIDE HFA IN Inhale 0.5 mcg 1 (one) time each day Active cyclobenzaprine (FLEXERIL) 10 MG tablet Take 10 mg by mouth 3 (three) times a day if needed Active ALBUTEROL SULFATE IN Take 2 vials by nebulization 1 (one) time each day 2 vials daily Active Active Problems Problem Noted Date Diagnosed Date Valgus deformity, not elsewhere classified, ankl e 04/26/2021 Anxiety 04/26/2021 Chronic obstructive pulmonary disease 04/26/2021 Hypertension 04/26/2021 Schizophrenia 04/26/2021 Diabetes mellitus 04/26/2021 Type 2 diabetes mellitus 04/17/2013 Overview (04/26/2021): DMII WO CMP UNCNTRLD Last Assessment & Plan: BG 116 - Home Januvia 50 mg Encounters Date Type Department Care Team Description 07/01/2024 1:00 PM CDT Office Visit [facility] [address] [facility] [address] [place] [address] Eladio Kang MD Chronic kidney disease, stage 2 (mild) (Primary Dx); Type 2 diabetes mellitus with diabetic nephropathy (HCC); Hypertension 07/01/2024 Documentation Only [facility] [address] [facility] [address] [place] [address] Jody Garza MA from Last 3 Months Family History Medical History Relation Comments Heart disease Brother Alzheimer's disease Father Heart disease Father Diabetes Maternal Grandmother Kidney disease Maternal Grandmother Diabetes Mother Diabetes Sister Lupus Sister Relation Status Comments Brother Father Maternal Grandmother Mother Sister Alive Social History Tobacco Use Types Packs/Day Years Used Date Smoking Tobacco: Every Day Cigarettes Smokeless Tobacco: Never Comments:3-4 cigarettes per day Alcohol Use Standard Drinks/Week Comments Never 0 (1 standard drink = 0.6 oz pur e alcohol) Sex and Gender Information Value Date Recorded Sex Assigned at Not on file Legal Sex Male 5:03 PM EST Gender Identity Not on file Sexual Orientation Not on file Last Filed Vital Signs Vital Sign Reading Time Taken Comments Blood Pressure 120/72 07/01/2024 12:48 PM CDT Pulse 70 07/01/2024 12:48 PM CDT Temperature 37 C (98.6 F) 07/01/2024 12:48 PM CDT Respiratory Rate - - Oxygen Saturation 93% 07/01/2024 12:48 PM CDT Inhaled Oxygen Concentration - - Weight 138 kg (304 lb) 06/06/2021 11:38 AM SIGN LANGUAGE TRANSLATOR Height 172.7 cm (5' 8 ) 06/06/2021 11:38 AM SIGN LANGUAGE TRANSLATOR Body Mass Index 46.22 06/06/2021 11:38 AM SIGN LANGUAGE TRANSLATOR Plan of Treatment Upcoming Encounters Date Type Department Care Team (Late st Contact Info) Description 01/05/2025 10:15 AM CDT Office Visit [facility] [address] [facility] [address] [place] [address] Eladio Kang MD [address] [facility] [address] [place] [address] Health Maintenance Due Date Last Done Comments Pneumococcal Vaccine: 50+ Years (1 of 2 - PCV) 1974 Colorectal Cancer Screening: Annual FOBT 09/02/2003 Colorectal Cancer Screening: Colonoscopy 09/02/2003 Colorectal Cancer Screening: Sigmoidoscopy 09/02/2003 Diabetes: Ophthalmology Exam 04/06/2021 Diabetes: Pedal Pulse Checked 04/06/2021 Diabetes: Sensory Foot Exam 04/06/2021 Diabetes: Visual Foot Exam 04/06/2021 Diabetes: Hemoglobin A1C 09/18/2024 025, 06/15/2024, 06/27/2023, Additional history exists Influenza Vaccine (Season Ended) 2024 01/07/2020 Hepatitis B Vaccine Aged Out No longe r eligible based on patient's age to complete this topic Procedures Procedure Name Priority Date/Time Associated Diagnosis Comments HEMOGLOBIN A1C Routine 06/13/2023 from Last 3 Months or Most Recently Relevant to Health Maintenance Results * Hemoglobin A1c (06/13/2023) Hemoglobin A1C 5.5 Estimated Average Glucose, POC 111 Blood (Blood, Venous) 06/13/2023 us Historical Provider LAB BLOOD ORDERABLES Sherry l Result from Last 3 Months or Most Recently Relevant to Health Maintenance Insurance Medicare Medicaid [place] Care Teams Electric Motor Rebuilder Relationship Specialty Start Date End Date Jose Miguel Mijares MD [address] [place] [address] PCP - General Family Medicine 04/06/21
--- OUTSIDE RECORDS SUMMARY | 2024-08-06 17:55 | XMS_ITS | Referral Summary ---
Author Organization [facility] Physician Office Building 2 Address [address] [place] [address] Care Team Providers Care It Tele[employer] Technician Name Role Phone Eladio Kang MD Unavailable Gloria Gusman MD Unavailable [phone] Judah De DPM Unavailable [phone] Jose Miguel Mijaers MD Primary Care Provider [phone] Encounters Date Type Department Care Team Description 06/18/2024 11:50 AM CDT Lab [address] [id number] 06/15/2024 10:30 AM CDT [address] [address] 06/15/2024 10:25 AM CDT [address] [phone] from Last 3 Months Allergies Active Allergy Reactions Criticality Noted Date [...] every 6 (six) hours. 360 mL 04/14/19 Active amLODIPine (NORVASC) 5 mg tabletIndications :hypertension Take 1 tablet (5 mg total) by mouth daily. 30 tablet 04/15/19 Active vitamin E 400 unit capsuleIndication s:Vitamin E Deficiency Take 400 Units by mouth daily. Active b complex vitamins tabletIndications :Vitamin Deficiency Take 1 tablet by mouth daily. Active coenzyme Q10 (CO Q-10) 10 mg capsuleIndication s:Other Take 10 mg by mouth daily. Active cyanocobalamin/fo lic acid (VITAMIN [id number] ACID ORAL)Indications: Other Take 1 tablet by mouth daily. Active oxygenIndications :Dyspnea Inhale 2 L/min continuously. Active SYMBICORT 160-4.5 mcg/actuation inhalerIndication s:Bronchospasm Prevention with COPD 04/25/19 Active clonazePAM (KlonoPIN) 0.5 mg tabletIndications :Cathryn associated with Bipolar Disorder, Adjunct Take 0.5 tablets (0.25 mg total) by mouth 3 (three) times a day for 3 days 5 tablet 03/15/20 Active clonazePAM (KlonoPIN) 0.5 mg tabletIndications :Cathryn [...] total) by mouth nightly 30 tablet 03/15/20 20 Active ciprofloxacin (CIPRO) 500 mg tablet 03/18/20 20 Active Austedo 12 mg tablet 03/21/20 20 Active gabapentin (NEURONTIN) 100 mg capsule 03/21/20 Active HYDROcodone-aceta minophen (NORCO) 5-325 mg per tablet 03/23/20 Active Vascepa 1 gram capsule 03/21/20 Active lisinopriL (PRINIVIL,ZESTRIL ) 10 mg tablet 03/15/20 Active Namzaric 28-10 mg capsule,sprinkle, ER 24hr extended release capsule 03/21/20 Active nitrofurantoin monohydrate (MACROBID) 100 mg capsule 03/04/20 20 Active sertraline (ZOLOFT) 100 mg tablet 03/21/20 20 Active traMADoL (ULTRAM) 50 mg tablet 3 03/21/20 20 Active traZODone (DESYREL) 50 mg tablet 03/21/20 20 Active zolpidem (AMBIEN) 10 mg tablet 03/21/20 20 Active ondansetron (ZOFRAN) 4 mg tablet Take 1 tablet (4 mg total) by mouth every 6 (six) hours 12 tablet 03/21/20 23 Active Active Problems Problem Noted Date Diagnosed Date Post-traumatic arthritis of left ankle 0 Concern for Dementia 03/15/2020 Assessment & Plan (03/15/2020 10:43 AM WARDROBE MISTRESS): Patient has an unclear history of memory loss noted by outpatient providers. Currently on Namzaric. Poor memory likely may be due in part to complex medication regimen including Ambien, trazodone, sertraline, gabapentin, austedo, namzaric, klonopin, Seroquel and lithium - MOCA TOTAL SCORE = 22/30: Visuospatial/Executive - 3/5, Naming - 3/3, Attention - 6/6, Language - 2/3, Abstraction - 2/2, Delayed Recall - 1/5, Orientation - 5/6 - Namzaric held during admission, follow-up with PCP Influenza B 04/07/2018 Assessment & Plan (04/07/2018 10:20 PM WARDROBE MISTRESS): Rapid flu positive for influenza B. Patient was started on Tamiflu. COPD exacerbation 04/07/2018 Assessment & Plan (04/07/2018 10:29 PM WARDROBE MISTRESS): Secondary to influenza B. Patient has clear sputum. No need for antibiotics. Will continue with IV steroids and breathing treatments. Schizoaffective disorder, bipolar type 8 Assessment & Plan (03/15/2020 10:36 AM WARDROBE MISTRESS): Patient continues to display distractibility, irritability, tangential speech consistent with hypomania. Also displaying poor memory, unclear if it is due to poor attention or evidence of dementia. Of note, patient is still receiving Klonopin TID. Current episodes appears to be precipitated by decreased dosage of [place]. Patient declining to sign in voluntary at this time and does not meet criteria for 21 day hold at this time. Will likely be discharged today at a hypermanic state. Continue [place] 900mg QHS and Seroquel 200mg at discharge. Will follow up with PCP and outpatient provider to monitor kidney function and lithium level. - Continue [place] 900mg ER QHS on discharge - Continue Seroquel 200mg on discharge - Contine Klonopin 0.25mg TID x 3 day, followed by Klonpin 0.25mg daily x 3 days to complete taper - [place] level 0.4, repeat level in 1 week. Assessment & Plan (03/14/2020 1:15 PM WARDROBE MISTRESS): Patient continues to display distractibility, irritability, tangential speech consistent with hypomania. Current episodes appears to be precipitated by decreased dosage of [place]. Will continue [place] at 450mg last night, will check troph tonight. Will continue Klonopin at 0.25mg for titration. Patient declining to sign in voluntary at this time and does not meet criteria for 21 day hold at this time. Will likely be discharged tomorrow at a hypermanic state. Will ensure outpatient follow up before discharge - Continue [place] 450mg ER QHS, check troph before tonight's night dose - Continue Seroquel 150mg - Contine Klonopin 0.25mg TID, outpatient provider to continue taper Assessment & Plan (03/12/2020 10:45 AM WARDROBE MISTRESS): Patient continues to display distractibility, irritability, tangential speech consistent with hypomania. Current episodes appears to be precipitated by decreased dosage of [place]. [place] started at 450mg last night, will continue at this dose at this time due to reduced kidney function and check troph before Dimitri dose. Will slowly titrate down Klonopin due to unclear utilization by patient. - Continue [place] 450mg ER QHS, check troph before Dimitri night dose - Continue Seroquel 150mg - Contine Klonopin 0.5mg TID, will decrease to 0.25mg Saturday Assessment & Plan (03/11/2020 2:02 PM WARDROBE MISTRESS): Patient continues to display distractibility, irritability, tangential speech consistent with hypomania. Current episodes appears to be precipitated by decreased dosage of [place]. [place] started at 450mg last night, will continue at this dose at this time due to reduced kidney function and check troph before Saturday dose. Will slowly titrate down Klonopin due to unclear utilization by patient. - Continue [place] 450mg ER QHS, check troph before Saturday night dose - Continue Seroquel 150mg - Decrease to Klonopin 0.5mg TID to continue taper Assessment & Plan (04/07/2018 10:19 PM WARDROBE MISTRESS): Home medications have been resumed. We do not have ingrezza and patient was advised that he can have his sister bring in his home medication. Patient can resume medication once and has been verified with pharmacy. Tobacco dependence 04/07/2018 Assessment & Plan (04/07/2018 10:18 PM WARDROBE MISTRESS): Patient has a history of smoking 1 pack per day for 52 years. He states he quit yesterday because he was scared that he could not breathe. Patient is okay with a nicotine patch at this time. FLORA on CPAP 04/07/2018 Assessment & Plan (03/09/2020 11:57 PM WARDROBE MISTRESS): -On FLORA precautions -Ordered home CPAP Assessment & Plan (04/07/2018 10:20 PM WARDROBE MISTRESS): CPAP has been ordered q.h.s.. CKD (chronic kidney disease) stage 3, GFR 30-59 ml/min 04/07/2018 Assessment & Plan (03/15/2020 10:28 AM WARDROBE MISTRESS): Cr 1.65 on admission, baseline 1.38 - 1.40. Repeat Cr 1.41, consistent with patient's baseline - Elevated Cr on admission likely due to acute on chronic kidney injury in the setting of poor intake - Last Cr 1.47 - Holding Lisinopril on discharge - Follow up BMP on discharge Assessment & Plan (03/14/2020 1:10 PM WARDROBE MISTRESS): Cr 1.65 on admission, baseline 1.38 - 1.40. Repeat Cr 1.41, consistent with patient's baseline - Elevated Cr on admission likely due to acute on chronic kidney injury in the setting of poor intake - Last Cr 1.47 1.47 - Continue q48 BMP - Holding Lisinopril Assessment & Plan (03/12/2020 10:44 AM WARDROBE MISTRESS): Cr 1.65 on admission, baseline 1.38 - 1.40 - Cr 1.41 on recent BMP, consistent with patient's baseline - Elevated Cr on admission likely due to acute on chronic kidney injury in the setting of poor intake - Continue q48 BMP - Holding Lisinopril Assessment & Plan (03/11/2020 1:50 PM WARDROBE MISTRESS): Cr 1.65 on admission, baseline 1.38 - 1.40 - Cr 1.40 on recent BMP, consistent with patient's baseline - Elevated Cr on admission likely due to acute on chronic kidney injury in the setting of poor intake - Continue q48 BMP - Holding Lisinopril Assessment & Plan (04/07/2018 10:20 PM WARDROBE MISTRESS): Creatinine appears to be stable from 2012. Will avoid any unnecessary nephrotoxins. Continue to monitor. Acute respiratory failure with hypoxia 8 Assessment & Plan (04/07/2018 10:26 PM WARDROBE MISTRESS): Likely secondary to COPD exacerbation and influenza. [...] UNCNTRLD Assessment & Plan (03/15/2020 10:37 AM WARDROBE MISTRESS): BG 116 - Home Januvia 50 mg Assessment & Plan (03/14/2020 1:15 PM WARDROBE MISTRESS): BG 143 -Ordered home Januvia 50 mg -QID Acuchecks Assessment & Plan (03/12/2020 10:45 AM WARDROBE MISTRESS): BG 143 -Ordered home Januvia 50 mg -QID Acuchecks Assessment & Plan (03/10/2020 12:00 AM WARDROBE MISTRESS): BG 143 -Ordered home Januvia 50 mg -QID Acuchecks -Could change to SSI Assessment & Plan (04/07/2018 10:17 PM WARDROBE MISTRESS): Patient is on Januvia at home which has been resumed. Patient is also on a low- dose sliding scale. Will continue to monitor but patient will likely need adjustments of insulin due to IV steroids COPD (chronic obstructive pulmonary disease) Assessment & Plan (03/15/2020 10:28 AM WARDROBE MISTRESS): - Continue home Symbicort & prn duo-nebs w/ RT Assessment & Plan (03/14/2020 1:10 PM WARDROBE MISTRESS): - Continue home Symbicort & prn duo-nebs w/ RT Assessment & Plan (03/12/2020 10:44 AM WARDROBE MISTRESS): - Continue home Symbicort & prn duo-nebs w/ RT Assessment & Plan (03/11/2020 1:51 PM WARDROBE MISTRESS): -Continue home Symbicort & prn duo-nebs HTN (hypertension) Assessment & Plan (03/15/2020 10:28 AM WARDROBE MISTRESS): BP 149/94 this morning - Restart home amlodipine 5mb - Holding home lisinopril 10 (monitoring kidney function) - Follow-up with PCP about restarting Assessment & Plan (03/14/2020 1:12 PM WARDROBE MISTRESS): BP 149/94 this morning - Restart home amlodipine 5mb - Holding home lisinopril 10 (monitoring kidney function) - Follow-up with PCP about restarting Assessment & Plan (03/12/2020 10:45 AM WARDROBE MISTRESS): BP 113/69 - Holding home lisinopril 10 (monitoring kidney function) - Holding home amlodipine 5 (soft BP) - Follow-up with PCP about restarting Assessment & Plan (03/11/2020 1:54 PM WARDROBE MISTRESS): BP 113/69 - Holding home lisinopril 10 (monitoring kidney function) - Holding home amlodipine 5 (soft BP) HLD (hyperlipidemia) Assessment & Plan (03/15/2020 10:28 AM WARDROBE MISTRESS): History of HLD on atorvastatin and vascepa. Lipid panel shows low HDL (36), normal LDL (37) and high triglycerides (273) -Continued home atorvastatin 20 mg -Held Vascepa 1g QID (not available in hospital), continue on discharge Assessment & Plan (03/14/2020 1:10 PM WARDROBE MISTRESS): History of HLD on atorvastatin and vascepa. Lipid panel shows low HDL (36), normal LDL (37) and high triglycerides (273) -Continued home atorvastatin 20 mg -Held Vascepa 1g QID (not available in hospital), continue on discharge Assessment & Plan (03/12/2020 10:44 AM WARDROBE MISTRESS): History of HLD on atorvastatin and vascepa. Lipid panel shows low HDL (36), normal LDL (37) and high triglycerides (273) -Continued home atorvastatin 20 mg -Held Vascepa 1g QID (not available in hospital), continue on discharge Assessment & Plan (03/11/2020 1:54 PM WARDROBE MISTRESS): History of HLD on atorvastatin and vascepa. Lipid panel shows low HDL (36), normal LDL (37) and high triglycerides (273) -Continued home atorvastatin 20 mg -Held Vascepa 1g QID (not available in hospital), continue on discharge Resolved Problems Problem Noted Date Diagnosed Date Resolved Date Poor memory 03/15/2020 03/15/2020 History of schizoaffective disorder 03/09/2020 03/09/2020 Immunizations Immunization Administration Dates Next Due Influenza, Unspecified 01/07/2020 Social History Tobacco Use Types Packs/Day Years [...] on file Legal Sex Male 3:08 AM WARDROBE MISTRESS Gender Identity Not on file Sexual Orientation Not on file Occupation Industry Job Start Date Job End Date disabled Not on file Not on file Not on file Last Filed Vital Signs Vital Sign Reading Time Taken Comments Blood Pressure 165/72 03/21/2023 1:00 PM WARDROBE MISTRESS Pulse 51 03/21/2023 1:00 PM WARDROBE MISTRESS Temperature 36.6 C (97.9 F) 03/21/2023 8:04 AM WARDROBE MISTRESS Respiratory Rate 14 03/21/2023 9:15 AM WARDROBE MISTRESS Oxygen Saturation 92% 03/21/2023 1:00 PM WARDROBE MISTRESS Inhaled Oxygen Concentration - - Weight 131.9 kg (290 lb 11.2 oz) 03/21/2023 8:04 AM WARDROBE MISTRESS Height 172.7 cm (5' 8 ) 03/21/2023 8:04 AM WARDROBE MISTRESS Body Mass Index 44.2 03/21/2023 8:04 AM WARDROBE MISTRESS Plan of Treatment Not on file Procedures Procedure Name Priority Date/Time Associated Diagnosis [...] MD LAB BLOOD ORDERABLES Final Re sult [facility] [place] 1 [facility] Department [place] [address] * (ABNORMAL) eGFR (06/18/2024 12:05 [...] MD LAB BLOOD ORDERABLES Final Re sult [facility] ([place]) 1 [facility] Department [place] [address] * Differential, auto (06/18/2024 12:05 PM CDT) [...] MD LAB BLOOD ORDERABLES Final Re sult [facility] ([place]) 1 [facility] Department [place] [address] * CBC with auto differential (06/18/2024 12:05 [...] ([place]) MCV 92.9 81.3 - 96.4 fL [facility] ([place]) MCH 31.2 27.1 - 33.3 pg [facility] ([place]) MCHC 33.6 32.3 - 35.7 g/dL [facility] ([place]) RDW CV 12.7 11.1 - 14.9 % [facility] ([place]) RDW SD 43.1 35.7 - 48.1 fL [facility] ([place]) NRBC abs 0.00 0.00 - 0.01 K/cumm [facility] ([place]) Blood 06/18/2024 12:0 5 PM CDT 06/18/2024 12:26 PM CDT Eladio Kang MD LAB BLOOD ORDERABLES Final Re sult Performing Organization Address [facility] de Phone Number [facility] ([place]) [address] [place] [address] [place] [address] * Protein / creatinine ratio, urine, random (06/18/2024 12:05 PM CDT) Pathologist [facility] Protein, ur, quant 9.6 mg/dL Comment: Interpretive Data No reference range established. Current interpretive data was last revised 2018. Creatinine Ur 76.5 mg/dL [facility] ([place]) Comment: Interpretive Data No reference range established. Current interpretive data was last revised 2018. Protein/creatinin e ratio 125.5 0.0 - 180.0 mg/g CR [facility] ([place]) Urine 06/18/2024 12:0 5 PM CDT 06/18/2024 12:30 PM CDT Eladio Kang MD LAB URINE ORDERABLES Final Re sult Performing Organization Address City/[facility] Co de Phone Number [facility] ([place]) [address] [facility] [place] [address] * Hemoglobin A1c (06/18/2024 12:05 PM CDT) Hgb A1C 5.2 4.0 - 5.6 % Estimated Average Glucose 103 mg/dL [facility] ([place]) Comment: The ADA recommends reporting an estimated Average Glucose (eAG) with all Hemoglobin A1c results using the equation derived from a study of 507 normal and diabetic adults. Minority populations were underrepresented and children were not included. (Diabetes Care 31:5752-5829, 2008). The eAG is not equivalent to a fasting glucose. Blood 06/18/2024 12:0 5 PM CDT 06/18/2024 12:26 PM CDT us Eladio Kang MD LAB BLOOD ORDERABLES [facility] ([place]) 1 [facility] [place] [address] * (ABNORMAL) Creatinine (06/18/2024 12:05 PM CDT) [facility] Creatinine 1.41(H) 0.80 - 1.30 mg/dL Urine/Blood 06/18/2024 12:0 5 PM CDT 06/18/2024 12:26 PM CDT Eladio Kang MD LAB BLOOD ORDERABLES Final Re sult [facility] ([place]) 1 [facility] [place] [address] * (ABNORMAL) Renal function panel (06/18/2024 12:05 PM CDT) [facility] Sodium 142 135 - 145 mmol/L Potassium, pl 4.8 3.3 - 4.9 mmol/L [facility] ([place]) Chloride 105 97 - 110 mmol/L [facility] ([place]) CO2 28 22 - 32 mmol/L [facility] ([place]) Anion gap 8 2 - 15 mmol/L [facility] ([place]) BUN 15 6 - 25 mg/dL [facility] ([place]) Creatinine 1.46(H) 0.80 - 1.30 mg/dL [...] 2022. Calcium 9.2 8.5 - 10.3 mg/dL [facility] ([place]) Phosphorus, pl 2.4 2.3 - 4.5 mg/dL [facility] ([place]) Albumin 3.9 3.5 - 5.0 g/dL [facility] ([place]) Blood 06/18/2024 12:0 5 PM CDT 06/18/2024 12:26 PM CDT Eladio Kang MD LAB BLOOD ORDERABLES Final Re sult [facility] ([place]) 1 [facility] [place] [address] * Volume and period, urine, 24 hour (06/18/2024 5:00 AM CDT) Volume, ur 3,400 mL Period, Urine Collection 1,440 min [facility] ([place]) Urine 06/18/2024 5:00 AM CDT 06/18/2024 2:50 PM CDT Eladio Kang MD LAB URINE ORDERABLES Final Re sult [facility] ([place]) 1 [facility] [place] [address] * Creatinine clearance, urine, 24 hour (06/18/2024 5:00 AM CDT) Creatinine Clearance 71 60 - 130 mL/min Creatinine, 24 hr, ur 1.4 0.8 - 2.2 g/24H [facility] ([place]) Urine 06/18/2024 5:00 AM CDT 06/18/2024 2:50 PM CDT us Eladio Kang MD LAB URINE ORDERABLES Final Re sult Performing Organization Address City/[facility]/ZIP Co de Phone Number [facility] ([place]) 1 [facility] [place] [address] * (ABNORMAL) eGFR (06/15/2024 10:47 AM CDT) [...] ORDERABLES Sherry l Result Performing Organization Address City/[facility]/ZIP Co de Phone Number [facility] ([place]) 1 [facility] [place] [address] * (ABNORMAL) eGFR (06/15/2024 10:47 AM CDT) [...] MD LAB BLOOD ORDERABLES Final Re sult [facility] ([place]) 1 [facility] [place] [address] * Differential, auto (06/15/2024 10:47 AM CDT) [...] on 2017. Imm gran pct 1.0 % [facility] ([place]) Comment: Interpretive Data Percent cell count reference ranges are not reported, since discordance with absolute values may lead to misinterpretation of CBC data. Current Interpretive Data was last revised on 2017. Lymphocyte pct 27.5 % [facility] ([place]) Comment: Interpretive Data Percent cell count reference ranges are not reported, since discordance with absolute values may lead to misinterpretation of CBC data. Current Interpretive Data was last revised on 2017. Monocyte pct 7.4 % [facility] ([place]) Comment: Interpretive Data Percent cell count reference ranges are not reported, since discordance with absolute values may lead to misinterpretation of CBC data. Current Interpretive Data was last revised on 2017. Eosinophil pct 2.7 % [facility] ([place]) Comment: Interpretive Data Percent cell count reference ranges are not reported, since discordance with absolute values may lead to misinterpretation of CBC data. Current Interpretive Data was last revised on 2017. Basophil pct 0.7 % [facility] ([place]) Comment: Interpretive Data Percent cell count reference ranges are not reported, since discordance with absolute values may lead to misinterpretation of CBC data. Current Interpretive Data was last revised on 2017. Blood 06/15/2024 10:4 7 AM CDT 06/15/2024 10:59 AM CDT us Eladio Kang MD LAB BLOOD ORDERABLES Final Re sult [facility] ([place]) 1 [facility] [place] [address] * PSA screen (06/15/2024 10:47 AM CDT) [...] Sherry l Result [facility] ([place]) 1 [facility] [address] * Iron profile w/ IBC (06/15/2024 10:47 AM CDT) Iron 98 50 - 150 mcg/dL TIBC 276 250 - 400 mcg/dL [facility] ([place] Transferrin saturation 36 20 - 50 % [facility] ([place] Blood 06/15/2024 10:4 7 AM CDT 06/15/2024 10:59 AM CDT us Jose Miguel Mijares MD LAB BLOOD ORDERABLES Sherry l Result Performing Organization Address City/[facility]/ZIP Co de Phone Number [facility] ([place]) [address] [facility] [place] [address] * CBC with auto differential (06/15/2024 10:47 AM CDT) WBC 7.3 3.8 - 9.9 K/cumm Hgb 14.4 13.0 - 17.5 g/dL [facility] ([place]) Hct 43.3 38.9 - 50.3 % [facility] ([place]) Plt 162 150 - 400 K/cumm [facility] ([place]) MPV 9.3 9.1 - 12.3 fL [facility] ([place]) RBC 4.71 4.30 - 5.80 M/cumm [facility] ([place]) MCV 91.9 81.3 - 96.4 fL [facility] ([place]) MCH 30.6 27.1 - 33.3 pg [facility] ([place]) MCHC 33.3 32.3 - 35.7 g/dL [facility] ([place]) RDW CV 12.5 11.1 - 14.9 % [facility] ([place]) RDW SD 42.2 35.7 - 48.1 fL [facility] ([place]) NRBC abs 0.00 0.00 - 0.01 K/cumm [facility] ([place]) Blood 06/15/2024 10:4 7 AM CDT 06/15/2024 10:59 AM CDT Eladio Kang MD LAB BLOOD ORDERABLES Final Re sult Performing Organization Address [facility] Co de Phone Number [facility] ([place]) 1 [facility] [employer] [address] * Protein / creatinine ratio, urine, random (06/15/2024 10:47 AM CDT) Protein, ur, quant 7.0 mg/dL Comment: Interpretive Data No reference range established. Current interpretive data was last revised 2018. Creatinine Ur 52.2 mg/dL [facility] ([place]) Comment: Interpretive Data No reference range established. Current interpretive data was last revised 2018. Protein/creatinin e ratio 134.1 0.0 - 180.0 mg/g CR [facility] ([place]) Urine 06/15/2024 10:4 7 AM CDT 06/15/2024 11:24 AM CDT Eladio Kang MD LAB URINE ORDERABLES Final Re sult Performing Organization Address [facility]/ZIP Co de Phone Number [facility] ([place]) 1 [facility] [place] [address] * CBC without differential (06/15/2024 10:47 AM CDT) WBC 7.4 3.8 - 9.9 K/cumm Hgb 14.6 13.0 - 17.5 g/dL [facility] ([place]) Hct 43.0 38.9 - 50.3 % [facility] ([place]) Plt 161 150 - 400 K/cumm [facility] ([place]) MPV 9.5 9.1 - 12.3 fL [facility] ([place]) RBC 4.69 4.30 - 5.80 M/cumm [facility] ([place]) MCV 91.7 81.3 - 96.4 fL [facility] ([place]) MCH 31.1 27.1 - 33.3 pg [facility] ([place]) MCHC 34.0 32.3 - 35.7 g/dL [facility] ([place]) RDW CV 12.5 11.1 - 14.9 % [facility] ([place]) RDW SD 41.2 35.7 - 48.1 fL [facility] ([place]) NRBC abs 0.00 0.00 - 0.01 K/cumm [facility] ([place]) Blood 06/15/2024 10:4 7 AM CDT 06/15/2024 10:59 AM CDT us Jose Miguel Mijares MD LAB BLOOD ORDERABLES Sherry bailey Result [facility] ([place]) 1 [facility] Department of Laboratories [place] [address] * Hemoglobin A1c (06/15/2024 10:47 AM CDT) Hgb A1C 5.4 4.0 - 5.6 % Estimated Average Glucose 108 mg/dL [facility] ([place]) Comment: The ADA recommends reporting an estimated Average Glucose (eAG) with all Hemoglobin A1c results using the equation derived from a study of 507 normal and diabetic adults. Minority populations were underrepresented and children were not included. (Diabetes Care 31:3031-0907, 2008). The eAG is not equivalent to a fasting glucose. Blood 06/15/2024 10:4 7 AM CDT 06/15/2024 10:59 AM CDT us Jose Miguel Mijares MD LAB BLOOD ORDERABLES Sherry l Result Performing Organization Address [facility] Co de Phone Number [facility] ([place]) [address] [facility] [place] [address] * Hemoglobin A1c (06/15/2024 10:47 AM CDT) Hgb A1C 5.2 4.0 - 5.6 % Estimated Average Glucose 103 mg/dL [facility] ([place]) Comment: The ADA recommends reporting an estimated Average Glucose (eAG) with all Hemoglobin A1c results using the equation derived from a study of 507 normal and diabetic adults. Minority populations were underrepresented and children were not included. (Diabetes Care 31:4042-9588, 2008). The eAG is not equivalent to a fasting glucose. Blood 06/15/2024 10:4 7 AM CDT 06/15/2024 10:59 AM CDT us Eladio Kang MD LAB BLOOD ORDERABLES Final Re sult Performing Organization Address [facility] Co de Phone Number [facility] ([place]) [address] [place] [address] [place] [address] * Ferritin (06/15/2024 10:47 AM CDT) Pathologist [facility] Ferritin 214 30 - 400 ng/mL Blood 06/15/2024 10:4 7 AM CDT 06/15/2024 10:59 AM CDT us Jose Miguel Mijares MD LAB BLOOD ORDERABLES Sherry l Result Performing Organization Address [facility] Co de Phone Number [facility] ([place]) [address] [place] [address] * (ABNORMAL) Renal function panel (06/15/2024 10:47 AM CDT) Sodium 142 135 - 145 mmol/L Potassium, pl 5.1(H) 3.3 - 4.9 mmol/L [facility] ([place]) Chloride 105 97 - 110 mmol/L [facility] ([place]) CO2 29 22 - 32 mmol/L [facility] ([place]) Anion gap 8 2 - 15 mmol/[facility] BUN 17 6 - 25 mg/dL [facility] Creatinine 1.35(H) 0.80 - 1.30 [...] 2022. Calcium 9.3 8.5 - 10.3 mg/dL [facility] Phosphorus, pl 3.0 2.3 - 4.5 mg/dL [facility] Albumin 4.3 3.5 - 5.0 g/dL [facility] Blood 06/15/2024 10:4 7 AM CDT 06/15/2024 10:59 AM CDT us Eladio Kang MD LAB BLOOD ORDERABLES Final Re sult [facility] ([place]) [address] [facility] Department of Laboratories [place], [place] [id number] * Lipid panel (06/15/2024 10:47 AM CDT) [...] on 2017. Triglycerides 131 <=149 mg/dL [facility]) Comment: Interpretive Data Ages < or = [...] on 2017. HDL 46 >=40 mg/dL [facility]) Comment: Interpretive Data Ages < or = [...] 2017. LDL, calculated 77 <=129 mg/dL [facility]) Comment: Interpretive Data Ages < or = [...] NCEP Expert Panel. Circulation 2004;110:227 3. Song Castro et al. KATE Cardiol. 2019August 06;5(5):540-548. doi: [...] last revised on 2017. Chol/HDL ratio 3 [facility] ([place]) Blood 06/15/2024 10:4 7 AM CDT 06/15/2024 10:59 AM CDT us Jose Miguel Mijares MD LAB BLOOD ORDERABLES Sherry bailey Result [facility] ([place]) [address] [facility] Department [place] [address] * (ABNORMAL) Comprehensive metabolic panel (06/15/2024 10:47 [...] MD LAB BLOOD ORDERABLES Sherry l Result [facility] ([place]) [address] [facility] Department of Laboratories [place], [place] [id number] * COLONOSCOPY REPORT (11/13/2012) Anatomical Region Laterality Modality Other Narrative 11/13/2012 Ordered by an unspecified provider. us Historical Provider GI PROCEDURE ORDERABLES F inal Result from Last 3 Months or Most Recently Relevant to Health Maintenance Insurance MEDICARE IDSD MEDICARE IDPA MEDICARE IDPA MEDICARE IDPA Advance Directives For more information, please contact: [phone] * Full Code (Latest Code Status on File) Date Activated Date Inactivated Comments 03/09/2020 9:39 PM 03/16/2020 1:42 AM * Full Code Date Activated Date Inactivated Comments 04/07/2018 10:16 PM 04/14/2018 7:02 PM Care Teams It Telecom Technician Relationship Specialty Start Date End Date Jose Miguel Mijares MD [address] [facility] [place] [address] PCP - General Family Practice 03/21/23 Eladio Kang MD Consulting Physician Nephrology 04/14/18 Gloria Gusman MD [address] [place] [address] Pulmonary Disease 04/14/18 Juadh De DPGloria [address] [facility] [place] [address] Consulting Physician Foot and Ankle Surg 04/14/18
[2024-08-06 17:56] LABS: Alanine Aminotransferase 28 U/L (6-50); Albumin Level 4.4 g/dL (3.5-5.1); Alkaline Phosphatase 66 U/L (38-126); Anion Gap 8 mmol/L (4-12); Aspartate Amino Transferase 30 U/L (17-59); Bilirubin,Total 0.7 mg/dL (0.2-1.3); Blood Urea Nitrogen 16 mg/dL (9-20); Calcium 9.2 mg/dL (8.4-10.2); Carbon Dioxide 29 mmol/L (22-30); Chloride 95 mmol/L (98-107); Estimated CRCL calculation 61 ml/min; Estimated Glomerular Filt Rate 49; Glucose 81 mg/dL (65-110); Lipase 46 U/L (23-300); Potassium 3.4 mmol/L (3.4-5.0); Sodium 132 mmol/L (137-145)
--- OUTSIDE RECORDS SUMMARY | 2024-08-06 17:56 | XMS_ITS | Clinical Summary ---
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 Gender Identity Not on file Sexual Orientation Not on file Plan of Treatment Health Maintenance Due Date Last Done Comments Hepatitis C Virus (HCV) Screening 1955 TdaP Immunization 1955 Colonoscopy 09/02/1999 Colorectal Cancer Screening 09/02/1999 Cologuard 2004 Immunochemical Fecal Occult Blood 2004 Pneumococcal Immunization (5 0+ years) (1 of 1 - PCV) 2004 Zoster Immunization (1 of 2) 2004 PSA Discussion 2009 Influenza Immunization (#1) 2023 SARS-COV-2 Immunization ( - season) 2023 Respiratory Syncytial Virus (RSV) Immunization (Adult) (1 - 1-dose 75+ series) 2029 Hepatitis B Immunization Aged Out No longer eligible based on patient's age to complete this topic Meningococcal Immunization (ACWY) Aged Out No longer eligible based on patient's age to complete this topic Rotavirus Immunization Aged Out No lo nger eligible based on patient's age to complete this topic
== END 2024-08-06 20:25 | disposition home or self-care (01) ==
PROVIDERS: Emergency Provider Emergency Medicine; PCP Family Medicine
DX: R11.2 Nausea with vomiting, unspecified (principal); F12.90 Cannabis use, unspecified, uncomplicated; I10 Essential (primary) hypertension; E11.9 Type 2 diabetes mellitus without complications; F32.A Depression, unspecified; F41.9 Anxiety disorder, unspecified; F20.9 Schizophrenia, unspecified; Z87.891 Personal history of nicotine dependence; Z79.84 Long term (current) use of oral hypoglycemic drugs; Z79.899 Other long term (current) drug therapy
CPT/HCPCS: 36415; 80053; 81003; 83690; 85025; 94640; 99283; J1630

== ENCOUNTER 2024-08-27 02:02 | Day surgery (SDC) | payer MEDICARE, MEDICAID, SELFPAY ==
[2024-08-21 12:23] VITALS: BMI 48.6
--- OUTSIDE RECORDS SUMMARY | 2024-08-27 02:05 | XMS_ITS | Clinical Summary ---
Author Organization [facility] Physician Office Building 2 Address [address] [place] [address] Care Team Providers Care Chief Of Surgery Name Role Phone Eladio Kang MD Unavailable [phone] Gloria Gusman MD Unavailable [phone] Judah De DPGloria Unavailable [phone] Jose Miguel Mijares MD Primary Care Provider [phone] Allergies Active Allergy Reactions Criticality Noted Date [...] mouth daily. Active cyanocobalamin/fo lic acid (VITAMIN [id number] ACID ORAL)Indications: Other Take 1 tablet by [...] 03/15/2020 Assessment & Plan (03/15/2020 10:43 AM LADLE OPERATOR): Patient has an unclear history of memory [...] 04/07/2018 Assessment & Plan (04/07/2018 10:20 PM LADLE OPERATOR): Rapid flu positive for influenza B. Patient was started on Tamiflu. COPD exacerbation 04/07/2018 Assessment & Plan (04/07/2018 10:29 PM LADLE OPERATOR): Secondary to influenza B. Patient has clear sputum. No need for antibiotics. Will continue with IV steroids and breathing treatments. Schizoaffective disorder, bipolar type 8 Assessment & Plan (03/15/2020 10:36 AM LADLE OPERATOR): Patient continues to display distractibility, irritability, tangential speech consistent with hypomania. Also displaying poor memory, unclear if it is due to poor attention or evidence of dementia. Of note, patient is still receiving Klonopin TID. Current episodes appears to be precipitated by decreased dosage of [place]. Patient declining to sign in voluntary at this time and does not meet criteria for 21 day hold at this time. Will likely be discharged today at a hypermanic state. Continue [place] 900mg QHS and Seroquel 200mg at discharge. Will follow up with PCP and outpatient provider to monitor kidney function and lithium level. - Continue [place] 900mg ER QHS on discharge - Continue Seroquel 200mg on discharge - Contine Klonopin 0.25mg TID x 3 day, followed by Klonpin 0.25mg daily x 3 days to complete taper - [place] level 0.4, repeat level in 1 week. Assessment & Plan (03/14/2020 1:15 PM LADLE OPERATOR): Patient continues to display distractibility, irritability, tangential speech consistent with hypomania. Current episodes appears to be precipitated by decreased dosage of [place]. Will continue [place] at 450mg last night, will check troph tonight. Will continue Klonopin at 0.25mg for titration. Patient declining to sign in voluntary at this time and does not meet criteria for 21 day hold at this time. Will likely be discharged tomorrow at a hypermanic state. Will ensure outpatient follow up before discharge - Continue [place] 450mg ER QHS, check troph before tonight's night dose - Continue Seroquel 150mg - Contine Klonopin 0.25mg TID, outpatient provider to continue taper Assessment & Plan (03/12/2020 10:45 AM LADLE OPERATOR): Patient continues to display distractibility, irritability, tangential speech consistent with hypomania. Current episodes appears to be precipitated by decreased dosage of [place]. [place] started at 450mg last night, will continue at this dose at this time due to reduced kidney function and check troph before Saturday dose. Will slowly titrate down Klonopin due to unclear utilization by patient. - Continue [place] 450mg ER QHS, check troph before Saturday night dose - Continue Seroquel 150mg - Contine Klonopin 0.5mg TID, will decrease to 0.25mg Saturday Assessment & Plan (03/11/2020 2:02 PM LADLE OPERATOR): Patient continues to display distractibility, irritability, tangential speech consistent with hypomania. Current episodes appears to be precipitated by decreased dosage of [place]. [place] started at 450mg last night, will continue at this dose at this time due to reduced kidney function and check troph before Saturday dose. Will slowly titrate down Klonopin due to unclear utilization by patient. - Continue [place] 450mg ER QHS, check troph before Saturday night dose - Continue Seroquel 150mg - Decrease to Klonopin 0.5mg TID to continue taper Assessment & Plan (04/07/2018 10:19 PM LADLE OPERATOR): Home medications have been resumed. We do not have ingrezza and patient was advised that he can have his sister bring in his home medication. Patient can resume medication once and has been verified with pharmacy. Tobacco dependence 04/07/2018 Assessment & Plan (04/07/2018 10:18 PM LADLE OPERATOR): Patient has a history of smoking 1 pack per day for 52 years. He states he quit yesterday because he was scared that he could not breathe. Patient is okay with a nicotine patch at this time. FLORA on CPAP 04/07/2018 Assessment & Plan (03/09/2020 11:57 PM LADLE OPERATOR): -On FLORA precautions -Ordered home CPAP Assessment & Plan (04/07/2018 10:20 PM LADLE OPERATOR): CPAP has been ordered q.h.s.. CKD (chronic kidney disease) stage 3, GFR 30-59 ml/min 04/07/2018 Assessment & Plan (03/15/2020 10:28 AM LADLE OPERATOR): Cr 1.65 on admission, baseline 1.38 - 1.40. Repeat Cr 1.41, consistent with patient's baseline - Elevated Cr on admission likely due to acute on chronic kidney injury in the setting of poor intake - Last Cr 1.47 - Holding Lisinopril on discharge - Follow up BMP on discharge Assessment & Plan (03/14/2020 1:10 PM LADLE OPERATOR): Cr 1.65 on admission, baseline 1.38 - 1.40. Repeat Cr 1.41, consistent with patient's baseline - Elevated Cr on admission likely due to acute on chronic kidney injury in the setting of poor intake - Last Cr 1.47 1.47 - Continue q48 BMP - Holding Lisinopril Assessment & Plan (03/12/2020 10:44 AM LADLE OPERATOR): Cr 1.65 on admission, baseline 1.38 - 1.40 - Cr 1.41 on recent BMP, consistent with patient's baseline - Elevated Cr on admission likely due to acute on chronic kidney injury in the setting of poor intake - Continue q48 BMP - Holding Lisinopril Assessment & Plan (03/11/2020 1:50 PM LADLE OPERATOR): Cr 1.65 on admission, baseline 1.38 - 1.40 - Cr 1.40 on recent BMP, consistent with patient's baseline - Elevated Cr on admission likely due to acute on chronic kidney injury in the setting of poor intake - Continue q48 BMP - Holding Lisinopril Assessment & Plan (04/07/2018 10:20 PM LADLE OPERATOR): Creatinine appears to be stable from 2012. Will avoid any unnecessary nephrotoxins. Continue to monitor. Acute respiratory failure with hypoxia 8 Assessment & Plan (04/07/2018 10:26 PM LADLE OPERATOR): Likely secondary to COPD exacerbation and influenza. [...] UNCNTRLD Assessment & Plan (03/15/2020 10:37 AM LADLE OPERATOR): BG 116 - Home Januvia 50 mg Assessment & Plan (03/14/2020 1:15 PM LADLE OPERATOR): BG 143 -Ordered home Januvia 50 mg -QID Acuchecks Assessment & Plan (03/12/2020 10:45 AM LADLE OPERATOR): BG 143 -Ordered home Januvia 50 mg -QID Acuchecks Assessment & Plan (03/10/2020 12:00 AM LADLE OPERATOR): BG 143 -Ordered home Januvia 50 mg -QID Acuchecks -Could change to SSI Assessment & Plan (04/07/2018 10:17 PM LADLE OPERATOR): Patient is on Januvia at home which has been resumed. Patient is also on a low- dose sliding scale. Will continue to monitor but patient will likely need adjustments of insulin due to IV steroids COPD (chronic obstructive pulmonary disease) Assessment & Plan (03/15/2020 10:28 AM LADLE OPERATOR): - Continue home Symbicort & prn duo-nebs w/ RT Assessment & Plan (03/14/2020 1:10 PM LADLE OPERATOR): - Continue home Symbicort & prn duo-nebs w/ RT Assessment & Plan (03/12/2020 10:44 AM LADLE OPERATOR): - Continue home Symbicort & prn duo-nebs w/ RT Assessment & Plan (03/11/2020 1:51 PM LADLE OPERATOR): -Continue home Symbicort & prn duo-nebs HTN (hypertension) Assessment & Plan (03/15/2020 10:28 AM LADLE OPERATOR): BP 149/94 this morning - Restart home amlodipine 5mb - Holding home lisinopril 10 (monitoring kidney function) - Follow-up with PCP about restarting Assessment & Plan (03/14/2020 1:12 PM LADLE OPERATOR): BP 149/94 this morning - Restart home amlodipine 5mb - Holding home lisinopril 10 (monitoring kidney function) - Follow-up with PCP about restarting Assessment & Plan (03/12/2020 10:45 AM LADLE OPERATOR): BP 113/69 - Holding home lisinopril 10 (monitoring kidney function) - Holding home amlodipine 5 (soft BP) - Follow-up with PCP about restarting Assessment & Plan (03/11/2020 1:54 PM LADLE OPERATOR): BP 113/69 - Holding home lisinopril 10 (monitoring kidney function) - Holding home amlodipine 5 (soft BP) HLD (hyperlipidemia) Assessment & Plan (03/15/2020 10:28 AM LADLE OPERATOR): History of HLD on atorvastatin and vascepa. Lipid panel shows low HDL (36), normal LDL (37) and high triglycerides (273) -Continued home atorvastatin 20 mg -Held Vascepa 1g QID (not available in hospital), continue on discharge Assessment & Plan (03/14/2020 1:10 PM LADLE OPERATOR): History of HLD on atorvastatin and vascepa. Lipid panel shows low HDL (36), normal LDL (37) and high triglycerides (273) -Continued home atorvastatin 20 mg -Held Vascepa 1g QID (not available in hospital), continue on discharge Assessment & Plan (03/12/2020 10:44 AM LADLE OPERATOR): History of HLD on atorvastatin and vascepa. Lipid panel shows low HDL (36), normal LDL (37) and high triglycerides (273) -Continued home atorvastatin 20 mg -Held Vascepa 1g QID (not available in hospital), continue on discharge Assessment & Plan (03/11/2020 1:54 PM LADLE OPERATOR): History of HLD on atorvastatin and vascepa. [...] Care Team Description 06/18/2024 11:50 AM CDT [address] [address] 06/15/2024 10:30 AM CDT [address] [address] 06/15/2024 10:25 AM CDT [address] [address] from Last 3 Months Immunizations Immunization Administration [...] on file Legal Sex Male 3:08 AM LADLE OPERATOR Gender Identity Not on file Sexual Orientation Not on file Occupation Industry Job Start Date Job End Date disabled Not on file Not on file Not on file Obstetrics History Last Filed Vital Signs Vital Sign Reading Time Taken Comments Blood Pressure 165/72 03/21/2023 1:00 PM LADLE OPERATOR Pulse 51 03/21/2023 1:00 PM LADLE OPERATOR Temperature 36.6 C (97.9 F) 03/21/2023 8:04 AM LADLE OPERATOR Respiratory Rate 14 03/21/2023 9:15 AM LADLE OPERATOR Oxygen Saturation 92% 03/21/2023 1:00 PM LADLE OPERATOR Inhaled Oxygen Concentration - - Weight 131.9 kg (290 lb 11.2 oz) 03/21/2023 8:04 AM LADLE OPERATOR Height 172.7 cm (5' 8 ) 03/21/2023 8:04 AM LADLE OPERATOR Body Mass Index 44.2 03/21/2023 8:04 AM LADLE OPERATOR Plan of Treatment Health Maintenance Due Date [...] Colon Cancer Screening-Colonoscopy 11/13/2022 11/13/2012 Influenza Vaccine (Season Ended) 2024 01/07/20 20 Hemoglobin A1C 12/19/2024 06/18/2024, 06/06, 06/15/2024, Additional history exists Lipid Panel 06/15/2025 06/15/2024, 11/07, 07/04/2020, Additional history exists eGFR 06/18/2025 06/18/2024, 06/06, 06/15/2024, Additional history exists Prostate Cancer Screening-PSA 06/15/2026, 11/27/2023, 06/27/2023 Colon Cancer Screening-CT Colonography Discontinued 11/13/2012 Colon Cancer Screening-DNA Stool Discontinued 11/14/19 13 Colon Cancer Screening-FIT Discontinued 11/13/2012 Colon Cancer [...] BLOOD ORDERABLES Final Re sult [facility] [place]) [address] [facility] [place] [address] * (ABNORMAL) eGFR (06/18/2024 12:05 [...] MD LAB BLOOD ORDERABLES Final Re sult [facility] ([place]) [address] [facility] [place] [address] * Differential, auto (06/18/2024 12:05 PM CDT) [...] Final Re sult [facility] ([place]) [address] [facility] [place] [address] * CBC with auto differential (06/18/2024 12:05 [...] 0.00 0.00 - 0.01 K/cumm [facility] ([place]) Blood 06/18/2024 12:0 5 PM CDT 06/18/2024 12:26 PM CDT Eladio Kang MD LAB BLOOD ORDERABLES Final Re sult Performing Organization Address [facility] de Phone Number [facility]) 1 [facility] [place] [address] * Protein / creatinine ratio, urine, random (06/18/2024 12:05 PM CDT) Protein, ur, quant 9.6 mg/dL Comment: Interpretive Data No reference range established. Current interpretive data was last revised 2018. Creatinine Ur 76.5 mg/dL [facility] ([place]) Comment: Interpretive Data No reference range established. Current interpretive data was last revised 2018. Protein/creatinin e ratio 125.5 0.0 - 180.0 mg/g CR [facility] ([place]) Urine 06/18/2024 12:0 5 PM CDT 06/18/2024 12:30 PM CDT Eladio Kang MD LAB URINE ORDERABLES Final Re sult Performing Organization Address [facility] Co de Phone Number [facility] ([place]) [address] [facility] [place] [address] * Hemoglobin A1c (06/18/2024 12:05 PM CDT) Hgb A1C 5.2 4.0 - 5.6 % Estimated Average Glucose 103 mg/dL [facility] ([place]) Comment: The ADA recommends reporting an estimated Average Glucose (eAG) with all Hemoglobin A1c results using the equation derived from a study of 507 normal and diabetic adults. Minority populations were underrepresented and children were not included. (Diabetes Care 31:3272-2044, 2008). The eAG is not equivalent to a fasting glucose. Blood 06/18/2024 12:0 5 PM CDT 06/18/2024 12:26 PM CDT us Eladio Kang MD LAB BLOOD ORDERABLES Final Re sult [facility] ([place]) 1 [facility] [place] [address] * (ABNORMAL) Creatinine (06/18/2024 12:05 PM CDT) Creatinine 1.41(H) 0.80 - 1.30 mg/dL Urine/Blood 06/18/2024 12:0 5 PM CDT 06/18/2024 12:26 PM CDT Eladio Kang MD LAB BLOOD ORDERABLES Final Re sult Performing Organization Address [facility]/ZIP Co de Phone Number [facility] ([place]) 1 [facility] [place] [address] * (ABNORMAL) Renal function panel (06/18/2024 12:05 PM CDT) Sodium 142 135 - 145 mmol/L Potassium, pl 4.8 3.3 - 4.9 mmol/L [facility] ([place]) Chloride 105 97 - 110 mmol/L [facility] ([place]) CO2 28 22 - 32 mmol/L [facility] ([place]) Anion gap 8 2 - 15 mmol/L [facility] ([place]) BUN 15 6 - 25 mg/dL [facility] ([place]) Creatinine 1.46(H) 0.80 - 1.30 mg/dL [facility] ([place]) Glucose 128 70 - 199 mg/dL [facility] ([place]) Comment: Interpretive Data Fasting glucose [...] 2022. Calcium 9.2 8.5 - 10.3 mg/dL [facility] ([place]) Phosphorus, pl 2.4 2.3 - 4.5 mg/dL [facility] ([place]) Albumin 3.9 3.5 - 5.0 g/dL [facility] ([place]) Blood 06/18/2024 12:0 5 PM CDT 06/18/2024 12:26 PM CDT Eladio Kang MD LAB BLOOD ORDERABLES Final Re sult [facility] ([place]) [address] [facility] [place] [address] * Volume and period, urine, 24 hour (06/18/2024 5:00 AM CDT) Volume, ur 3,400 mL Period, Urine Collection 1,440 min [facility] ([place]) Urine 06/18/2024 5:00 AM CDT 06/18/2024 2:50 PM CDT Eladio Kang MD LAB URINE ORDERABLES Final Re sult [facility] ([place]) [address] [facility] [place] [address] * Creatinine clearance, urine, 24 hour (06/18/2024 5:00 AM CDT) Creatinine Clearance 71 60 - 130 mL/min Creatinine, 24 hr, ur 1.4 0.8 - 2.2 g/24H [facility] ([place]) Urine 06/18/2024 5:00 AM CDT 06/18/2024 2:50 PM CDT us Eladio Kang MD LAB URINE ORDERABLES Final Re sult Performing Organization Address [facility]/ZIP Co de Phone Number [facility] ([place]) [address] [facility] [place] [address] * (ABNORMAL) eGFR (06/15/2024 10:47 AM CDT) [...] ORDERABLES Sherry l Result Performing Organization Address [facility]/ZIP Co de Phone Number [facility] ([place]) [address] [facility] [place] [address] * (ABNORMAL) eGFR (06/15/2024 10:47 AM CDT) [...] LAB BLOOD ORDERABLES Final Re sult [facility] ([place]) [address] [facility] [place] [address] * Differential, auto (06/15/2024 10:47 AM CDT) [...] 2017. Imm gran pct 1.0 % [facility] ([place]) Comment: Interpretive Data Percent cell count reference ranges are not reported, since discordance with absolute values may lead to misinterpretation of CBC data. Current Interpretive Data was last revised on 2017. Lymphocyte pct 27.5 % [facility] ([place]) Comment: Interpretive Data Percent cell [...] revised on 2017. Eosinophil pct 2.7 % [facility] ([place]) Comment: Interpretive Data Percent cell count reference ranges are not reported, since discordance with absolute values may lead to misinterpretation of CBC data. Current Interpretive Data was last revised on 2017. Basophil pct 0.7 % [facility] ([place]) Comment: Interpretive Data Percent cell count reference ranges are not reported, since discordance with absolute values may lead to misinterpretation of CBC data. Current Interpretive Data was last revised on 2017. Blood 06/15/2024 10:4 7 AM CDT 06/15/2024 10:59 AM CDT us Eladio Kang MD LAB BLOOD ORDERABLES Final Re sult [facility] ([place]) [address] [facility] Department of Laboratories [place], [place] [id number] * PSA screen (06/15/2024 10:47 AM CDT) [...] BLOOD ORDERABLES Sherry l Result [facility] ([place]) [address] [facility] [place] [address] * Iron profile w/ IBC (06/15/2024 10:47 AM CDT) Iron 98 50 - 150 mcg/dL TIBC 276 250 - 400 mcg/dL [facility] ([place]) Transferrin saturation 36 20 - 50 % [facility] ([place]) Blood 06/15/2024 10:4 7 AM CDT 06/15/2024 10:59 AM CDT us Jose Miguel Mijares MD LAB BLOOD ORDERABLES Sherry l Result Performing Organization Address [facility]/ZIP Co de Phone Number [facility] ([place]) [address] [facility] [place] [address] * CBC with auto differential (06/15/2024 10:47 [...] ORDERABLES Final Re sult Performing Organization Address [facility] Co de Phone Number [facility] ([place]) [address] [facility] [place] [address] * Protein / creatinine ratio, urine, random [...] ORDERABLES Final Re sult Performing Organization Address [facility]/ZIP Co de Phone Number [facility] ([place]) [address] [facility] [place] [address] * CBC without differential (06/15/2024 10:47 AM CDT) WBC 7.4 3.8 - 9.9 K/cumm Hgb 14.6 13.0 - 17.5 g/dL [facility] ([place]) Hct 43.0 38.9 - 50.3 % [facility] ([place]) Plt 161 150 - 400 K/cumm [facility] ([place]) MPV 9.5 9.1 - 12.3 fL [facility] ([place]) RBC 4.69 4.30 - 5.80 M/cumm [facility] ([place]) MCV 91.7 81.3 - 96.4 fL [facility] ([place]) MCH 31.1 27.1 - 33.3 pg [facility] ([place]) MCHC 34.0 32.3 - 35.7 g/dL [facility] ([place]) RDW CV 12.5 11.1 - 14.9 % [facility] ([place]) RDW SD 41.2 35.7 - 48.1 fL [facility] ([place]) NRBC abs 0.00 0.00 - 0.01 K/cumm [facility] ([place]) Blood 06/15/2024 10:4 7 AM CDT 06/15/2024 10:59 AM CDT us Jose Miguel Mijares MD LAB BLOOD ORDERABLES Sherry bailey Result [facility] ([place]) [address] [facility] Department of Laboratories [place], [place] [id number] * Hemoglobin A1c (06/15/2024 10:47 AM CDT) Hgb A1C 5.4 4.0 - 5.6 % Estimated Average Glucose 108 mg/dL [facility] ([place]) Comment: The ADA recommends reporting an estimated Average Glucose (eAG) with all Hemoglobin A1c results using the equation derived from a study of 507 normal and diabetic adults. Minority populations were underrepresented and children were not included. (Diabetes Care 31:9273-0765, 2008). The eAG is not equivalent to a fasting glucose. Blood 06/15/2024 10:4 7 AM CDT 06/15/2024 10:59 AM CDT us Jose Miguel Mijares MD LAB BLOOD ORDERABLES Sherry l Result Performing Organization Address [facility] Co de Phone Number [facility] ([place]) 1 [facility] [place] [address] * Hemoglobin A1c (06/15/2024 10:47 AM CDT) Hgb A1C 5.2 4.0 - 5.6 % Estimated Average Glucose 103 mg/dL [facility] ([place]) Comment: The ADA recommends reporting an estimated Average Glucose (eAG) with all Hemoglobin A1c results using the equation derived from a study of 507 normal and diabetic adults. Minority populations were underrepresented and children were not included. (Diabetes Care 31:4020-0120, 2008). The eAG is not equivalent to a fasting glucose. Blood 06/15/2024 10:4 7 AM CDT 06/15/2024 10:59 AM CDT us Eladio Kang MD LAB BLOOD ORDERABLES Final Re sult Performing Organization Address [facility] Co de Phone Number [facility] ([place]) [address] [place] [address] [place] [address] * Ferritin (06/15/2024 10:47 AM CDT) Pathologist [facility] Ferritin 214 30 - 400 ng/mL Blood 06/15/2024 10:4 7 AM CDT 06/15/2024 10:59 AM CDT us Jose Miguel Mijares MD LAB BLOOD ORDERABLES Sherry l Result Performing Organization Address [facility] Co de Phone Number [facility] ([place]) [address] [place] [address] * (ABNORMAL) Renal function panel (06/15/2024 10:47 [...] Final Re sult [facility] ([place]) [address] [facility] [place] [address] * Lipid panel (06/15/2024 10:47 AM CDT) [...] revised on 2023. Non-HDL Cholesterol 100 mg/dL [facility] ([place]) Comment: Interpretive Data Ages < [...] MD LAB BLOOD ORDERABLES Sherry bailey Result [facility] ([place]) [address] [facility] [place] [address] * (ABNORMAL) Comprehensive metabolic panel (06/15/2024 10:47 [...] Sherry bailey Result [facility] ([place]) [address] [facility] [place] [address] * COLONOSCOPY REPORT (11/13/2012) Anatomical Region Laterality Modality Other Narrative 11/13/2012 Ordered by an unspecified provider. us Historical Provider GI PROCEDURE ORDERABLES F inal Result from Last 3 Months or Most Recently Relevant to Health Maintenance Insurance MEDICARE IDMT MEDICARE IDPA MEDICARE [facility] MEDICARE [facility] Advance Directives For more information, please contact: [phone] * Full Code (Latest Code Status on File) Date Activated Date Inactivated Comments 03/09/2020 9:39 PM 03/16/2020 1:42 AM * Full Code Date Activated Date Inactivated Comments 04/07/2018 10:16 PM 04/14/2018 7:02 PM Care Teams Chief Of Surgery Relationship Specialty Start Date End Date Jose Miguel Mijares MD [address] [facility] [address] PCP - General Family Practice 03/21/23 Eladio Kang MD Consulting Physician Nephrology 04/14/18 Gloria Gusman MD [address] [facility] [place] [address] Pulmonary Disease 04/14/18 Judah De DPM [address] [facility] [place] [address] Consulting Physician Foot and Ankle Surg 04/14/18
--- OUTSIDE RECORDS SUMMARY | 2024-08-27 02:05 | XMS_ITS | CONTINUITY OF CARE DOCUMENT ---
Author Name jackie mejia Address Unknown Organization [facility] Office Address [id number] [place] [address] [address] [place] [address] Phone [phone] Care Team Providers Care Edge Roller Name Role Phone Colin Murry MD Unavailable VARUN HUNTLEY MD Unavailable [phone] VARUN HUNTLEY MD Unavailable [phone] INSURANCE PROVIDERS Payer name Policy type / Coverage type [place] [employer] party ID [facility] FARGOO Other [id number]
--- OUTSIDE RECORDS SUMMARY | 2024-08-27 02:05 | XMS_ITS | Referral Summary ---
Author Organization [facility] Physician Office Building 2 Address [address] [place] [address] Care Team Providers Care Sprinkler Driver Name Role Phone Eladio Kang MD Unavailable [phone] Gloria Gusman MD Unavailable [phone] Judah De DPM Unavailable [phone] Jose Miguel Mijares MD Primary Care Provider [phone] Encounters Date Type Department Care Team Description 06/18/2024 11:50 AM CDT Lab [address] [address] 06/15/2024 10:30 AM CDT [address] [address] 06/15/2024 10:25 AM CDT [address] [address] from Last 3 Months Allergies Active Allergy [...] mouth daily. Active cyanocobalamin/fo lic acid (VITAMIN [id number] ACID ORAL)Indications: Other Take 1 tablet by [...] 03/15/2020 Assessment & Plan (03/15/2020 10:43 AM INSTALLMENT LOAN COLLECTOR): Patient has an unclear history of memory [...] 04/07/2018 Assessment & Plan (04/07/2018 10:20 PM INSTALLMENT LOAN COLLECTOR): Rapid flu positive for influenza B. Patient was started on Tamiflu. COPD exacerbation 04/07/2018 Assessment & Plan (04/07/2018 10:29 PM INSTALLMENT LOAN COLLECTOR): Secondary to influenza B. Patient has clear sputum. No need for antibiotics. Will continue with IV steroids and breathing treatments. Schizoaffective disorder, bipolar type 8 Assessment & Plan (03/15/2020 10:36 AM INSTALLMENT LOAN COLLECTOR): Patient continues to display distractibility, irritability, tangential speech consistent with hypomania. Also displaying poor memory, unclear if it is due to poor attention or evidence of dementia. Of note, patient is still receiving Klonopin TID. Current episodes appears to be precipitated by decreased dosage of [place]. Patient declining to sign in voluntary at this time and does not meet criteria for 21 day hold at this time. Will likely be discharged today at a hypermanic state. Continue [place] 900mg QHS and Seroquel 200mg at discharge. Will follow up with PCP and outpatient provider to monitor kidney function and lithium level. - Continue [place] 900mg ER QHS on discharge - Continue Seroquel 200mg on discharge - Contine Klonopin 0.25mg TID x 3 day, followed by Klonpin 0.25mg daily x 3 days to complete taper - [place] level 0.4, repeat level in 1 week. Assessment & Plan (03/14/2020 1:15 PM INSTALLMENT LOAN COLLECTOR): Patient continues to display distractibility, irritability, tangential speech consistent with hypomania. Current episodes appears to be precipitated by decreased dosage of [place]. Will continue [place] at 450mg last night, will check troph tonight. Will continue Klonopin at 0.25mg for titration. Patient declining to sign in voluntary at this time and does not meet criteria for 21 day hold at this time. Will likely be discharged tomorrow at a hypermanic state. Will ensure outpatient follow up before discharge - Continue [place] 450mg ER QHS, check troph before tonight's night dose - Continue Seroquel 150mg - Contine Klonopin 0.25mg TID, outpatient provider to continue taper Assessment & Plan (03/12/2020 10:45 AM INSTALLMENT LOAN COLLECTOR): Patient continues to display distractibility, irritability, tangential speech consistent with hypomania. Current episodes appears to be precipitated by decreased dosage of [place]. [place] started at 450mg last night, will continue at this dose at this time due to reduced kidney function and check troph before Dimitri dose. Will slowly titrate down Klonopin due to unclear utilization by patient. - Continue [place] 450mg ER QHS, check troph before Dimitri night dose - Continue Seroquel 150mg - Contine Klonopin 0.5mg TID, will decrease to 0.25mg Saturday Assessment & Plan (03/11/2020 2:02 PM INSTALLMENT LOAN COLLECTOR): Patient continues to display distractibility, irritability, tangential speech consistent with hypomania. Current episodes appears to be precipitated by decreased dosage of [place]. [place] started at 450mg last night, will continue at this dose at this time due to reduced kidney function and check troph before Saturday dose. Will slowly titrate down Klonopin due to unclear utilization by patient. - Continue [place] 450mg ER QHS, check troph before Saturday night dose - Continue Seroquel 150mg - Decrease to Klonopin 0.5mg TID to continue taper Assessment & Plan (04/07/2018 10:19 PM INSTALLMENT LOAN COLLECTOR): Home medications have been resumed. We do not have ingrezza and patient was advised that he can have his sister bring in his home medication. Patient can resume medication once and has been verified with pharmacy. Tobacco dependence 04/07/2018 Assessment & Plan (04/07/2018 10:18 PM INSTALLMENT LOAN COLLECTOR): Patient has a history of smoking 1 pack per day for 52 years. He states he quit yesterday because he was scared that he could not breathe. Patient is okay with a nicotine patch at this time. FLORA on CPAP 04/07/2018 Assessment & Plan (03/09/2020 11:57 PM INSTALLMENT LOAN COLLECTOR): -On FLORA precautions -Ordered home CPAP Assessment & Plan (04/07/2018 10:20 PM INSTALLMENT LOAN COLLECTOR): CPAP has been ordered q.h.s.. CKD (chronic kidney disease) stage 3, GFR 30-59 ml/min 04/07/2018 Assessment & Plan (03/15/2020 10:28 AM INSTALLMENT LOAN COLLECTOR): Cr 1.65 on admission, baseline 1.38 - 1.40. Repeat Cr 1.41, consistent with patient's baseline - Elevated Cr on admission likely due to acute on chronic kidney injury in the setting of poor intake - Last Cr 1.47 - Holding Lisinopril on discharge - Follow up BMP on discharge Assessment & Plan (03/14/2020 1:10 PM INSTALLMENT LOAN COLLECTOR): Cr 1.65 on admission, baseline 1.38 - 1.40. Repeat Cr 1.41, consistent with patient's baseline - Elevated Cr on admission likely due to acute on chronic kidney injury in the setting of poor intake - Last Cr 1.47 1.47 - Continue q48 BMP - Holding Lisinopril Assessment & Plan (03/12/2020 10:44 AM INSTALLMENT LOAN COLLECTOR): Cr 1.65 on admission, baseline 1.38 - 1.40 - Cr 1.41 on recent BMP, consistent with patient's baseline - Elevated Cr on admission likely due to acute on chronic kidney injury in the setting of poor intake - Continue q48 BMP - Holding Lisinopril Assessment & Plan (03/11/2020 1:50 PM INSTALLMENT LOAN COLLECTOR): Cr 1.65 on admission, baseline 1.38 - 1.40 - Cr 1.40 on recent BMP, consistent with patient's baseline - Elevated Cr on admission likely due to acute on chronic kidney injury in the setting of poor intake - Continue q48 BMP - Holding Lisinopril Assessment & Plan (04/07/2018 10:20 PM INSTALLMENT LOAN COLLECTOR): Creatinine appears to be stable from 2012. Will avoid any unnecessary nephrotoxins. Continue to monitor. Acute respiratory failure with hypoxia 8 Assessment & Plan (04/07/2018 10:26 PM INSTALLMENT LOAN COLLECTOR): Likely secondary to COPD exacerbation and influenza. [...] UNCNTRLD Assessment & Plan (03/15/2020 10:37 AM INSTALLMENT LOAN COLLECTOR): BG 116 - Home Januvia 50 mg Assessment & Plan (03/14/2020 1:15 PM INSTALLMENT LOAN COLLECTOR): BG 143 -Ordered home Januvia 50 mg -QID Acuchecks Assessment & Plan (03/12/2020 10:45 AM INSTALLMENT LOAN COLLECTOR): BG 143 -Ordered home Januvia 50 mg -QID Acuchecks Assessment & Plan (03/10/2020 12:00 AM INSTALLMENT LOAN COLLECTOR): BG 143 -Ordered home Januvia 50 mg -QID Acuchecks -Could change to SSI Assessment & Plan (04/07/2018 10:17 PM INSTALLMENT LOAN COLLECTOR): Patient is on Januvia at home which has been resumed. Patient is also on a low- dose sliding scale. Will continue to monitor but patient will likely need adjustments of insulin due to IV steroids COPD (chronic obstructive pulmonary disease) Assessment & Plan (03/15/2020 10:28 AM INSTALLMENT LOAN COLLECTOR): - Continue home Symbicort & prn duo-nebs w/ RT Assessment & Plan (03/14/2020 1:10 PM INSTALLMENT LOAN COLLECTOR): - Continue home Symbicort & prn duo-nebs w/ RT Assessment & Plan (03/12/2020 10:44 AM INSTALLMENT LOAN COLLECTOR): - Continue home Symbicort & prn duo-nebs w/ RT Assessment & Plan (03/11/2020 1:51 PM INSTALLMENT LOAN COLLECTOR): -Continue home Symbicort & prn duo-nebs HTN (hypertension) Assessment & Plan (03/15/2020 10:28 AM INSTALLMENT LOAN COLLECTOR): BP 149/94 this morning - Restart home amlodipine 5mb - Holding home lisinopril 10 (monitoring kidney function) - Follow-up with PCP about restarting Assessment & Plan (03/14/2020 1:12 PM INSTALLMENT LOAN COLLECTOR): BP 149/94 this morning - Restart home amlodipine 5mb - Holding home lisinopril 10 (monitoring kidney function) - Follow-up with PCP about restarting Assessment & Plan (03/12/2020 10:45 AM INSTALLMENT LOAN COLLECTOR): BP 113/69 - Holding home lisinopril 10 (monitoring kidney function) - Holding home amlodipine 5 (soft BP) - Follow-up with PCP about restarting Assessment & Plan (03/11/2020 1:54 PM INSTALLMENT LOAN COLLECTOR): BP 113/69 - Holding home lisinopril 10 (monitoring kidney function) - Holding home amlodipine 5 (soft BP) HLD (hyperlipidemia) Assessment & Plan (03/15/2020 10:28 AM INSTALLMENT LOAN COLLECTOR): History of HLD on atorvastatin and vascepa. Lipid panel shows low HDL (36), normal LDL (37) and high triglycerides (273) -Continued home atorvastatin 20 mg -Held Vascepa 1g QID (not available in hospital), continue on discharge Assessment & Plan (03/14/2020 1:10 PM INSTALLMENT LOAN COLLECTOR): History of HLD on atorvastatin and vascepa. Lipid panel shows low HDL (36), normal LDL (37) and high triglycerides (273) -Continued home atorvastatin 20 mg -Held Vascepa 1g QID (not available in hospital), continue on discharge Assessment & Plan (03/12/2020 10:44 AM INSTALLMENT LOAN COLLECTOR): History of HLD on atorvastatin and vascepa. Lipid panel shows low HDL (36), normal LDL (37) and high triglycerides (273) -Continued home atorvastatin 20 mg -Held Vascepa 1g QID (not available in hospital), continue on discharge Assessment & Plan (03/11/2020 1:54 PM INSTALLMENT LOAN COLLECTOR): History of HLD on atorvastatin and vascepa. [...] on file Legal Sex Male 3:08 AM INSTALLMENT LOAN COLLECTOR Gender Identity Not on file Sexual Orientation Not on file Occupation Industry Job Start Date Job End Date disabled Not on file Not on file Not on file Last Filed Vital Signs Vital Sign Reading Time Taken Comments Blood Pressure 165/72 03/21/2023 1:00 PM INSTALLMENT LOAN COLLECTOR Pulse 51 03/21/2023 1:00 PM INSTALLMENT LOAN COLLECTOR Temperature 36.6 C (97.9 F) 03/21/2023 8:04 AM INSTALLMENT LOAN COLLECTOR Respiratory Rate 14 03/21/2023 9:15 AM INSTALLMENT LOAN COLLECTOR Oxygen Saturation 92% 03/21/2023 1:00 PM INSTALLMENT LOAN COLLECTOR Inhaled Oxygen Concentration - - Weight 131.9 kg (290 lb 11.2 oz) 03/21/2023 8:04 AM INSTALLMENT LOAN COLLECTOR Height 172.7 cm (5' 8 ) 03/21/2023 8:04 AM INSTALLMENT LOAN COLLECTOR Body Mass Index 44.2 03/21/2023 8:04 AM INSTALLMENT LOAN COLLECTOR Plan of Treatment Not on file Procedures [...] BLOOD ORDERABLES Final Re sult [facility] [place] [facility] Department [place] [address] * (ABNORMAL) eGFR (06/18/2024 12:05 [...] [facility] ([place]) [address] [facility] Department [place] [address] * Differential, auto (06/18/2024 12:05 PM CDT) [...] MEDICAL [facility] ([place] [address] [facility] Department [place] [address] * CBC with auto differential (06/18/2024 12:05 [...] ORDERABLES Final Re sult Performing Organization Address [facility] de Phone Number [facility] ([place]) [address] [place] [address] of [facility] [place] [address] * Protein / creatinine ratio, urine, random (06/18/2024 12:05 PM CDT) Pathologist [facility] Protein, ur, quant 9.6 mg/dL Comment: Interpretive [...] ORDERABLES Final Re sult Performing Organization Address City/[facility] Co de Phone Number [facility] ([place]) 1 [facility] of [facility] [place] [address] * Hemoglobin A1c (06/18/2024 12:05 PM CDT) Hgb A1C 5.2 4.0 - 5.6 % Estimated Average Glucose 103 mg/dL [facility] ([place]) Comment: The ADA recommends reporting an estimated Average Glucose (eAG) with all Hemoglobin A1c results using the equation derived from a study of 507 normal and diabetic adults. Minority populations were underrepresented and children were not included. (Diabetes Care 31:8792-9365, 2008). The eAG is not equivalent to a fasting glucose. Blood 06/18/2024 12:0 5 PM CDT 06/18/2024 12:26 PM CDT us Eladio Kang MD LAB BLOOD ORDERABLES Final [facility]ult [facility] ([place]) [address] [facility] [address] [place] [address] * (ABNORMAL) Creatinine (06/18/2024 12:05 PM CDT) [facility] Creatinine 1.41(H) 0.80 - 1.30 mg/dL Urine/Blood 06/18/2024 12:0 5 PM CDT 06/18/2024 12:26 PM CDT Eladio Kang MD LAB BLOOD ORDERABLES Final Re sult [facility] ([place]) [address] [facility] [place] [address] * (ABNORMAL) Renal function panel (06/18/2024 12:05 PM CDT) [facility] Sodium 142 135 - 145 mmol/L Potassium, pl 4.8 3.3 - 4.9 mmol/L [facility] ([place]) Chloride 105 97 - 110 mmol/L [facility] ([place]) CO2 28 22 - 32 mmol/L [facility] ([place]) Anion gap 8 2 - 15 mmol/L [facility] ([place]) BUN 15 6 - 25 mg/dL [facility] ([place]) Creatinine 1.46(H) 0.80 - 1.30 mg/dL [...] LAB BLOOD ORDERABLES Final Re sult [facility] ([place]) [address] [facility] [address] [place] [address] * Volume and period, urine, 24 hour (06/18/2024 5:00 AM CDT) Volume, ur 3,400 mL Period, Urine Collection 1,440 min [facility] ([place]) Urine 06/18/2024 5:00 AM CDT 06/18/2024 2:50 PM CDT Eladio Kang MD LAB URINE ORDERABLES Final Re sult [facility] ([place]) [address] [facility] [address] [place] [address] * Creatinine clearance, urine, 24 hour (06/18/2024 5:00 AM CDT) Creatinine Clearance 71 60 - 130 mL/min Creatinine, 24 hr, ur 1.4 0.8 - 2.2 g/24H [facility] ([place]) Urine 06/18/2024 5:00 AM CDT 06/18/2024 2:50 PM CDT us Eladio Kang MD LAB URINE ORDERABLES Final Re sult Performing Organization Address City/[facility]/ZIP Co de Phone Number [facility] ([place]) [address] [facility] [address] [place] [address] * (ABNORMAL) eGFR (06/15/2024 10:47 AM CDT) [...] ORDERABLES Sherry l Result Performing Organization Address City/[facility]/ZIP Co de Phone Number [facility] ([place]) [address] [facility] [address] [place] [address] * (ABNORMAL) eGFR (06/15/2024 10:47 AM CDT) [...] MD LAB BLOOD ORDERABLES Final Re sult [facility] ([place]) 1 [facility] Department [place] [address] * Differential, auto (06/15/2024 10:47 AM CDT) [...] Final Re sult [facility] ([place]) [address] [facility] Department [place] [address] * PSA screen (06/15/2024 10:47 AM CDT) [...] Sherry l Result [facility] ([place]) [address] [facility] [address] [place] [address] * Iron profile w/ IBC (06/15/2024 10:47 AM CDT) Iron 98 50 - 150 mcg/dL TIBC 276 250 - 400 mcg/dL [facility] ([place]) Transferrin saturation 36 20 - 50 % [facility] ([place]) Blood 06/15/2024 10:4 7 AM CDT 06/15/2024 10:59 AM CDT us Jose Miguel Mijares MD LAB BLOOD ORDERABLES Sherry l Result Performing Organization Address City/[facility]/ZIP Co de Phone Number [facility] ([place]) 1 [facility] [place] [address] * CBC with auto differential (06/15/2024 10:47 [...] 0.00 0.00 - 0.01 K/cumm [facility] ([place]) Blood 06/15/2024 10:4 7 AM CDT 06/15/2024 10:59 AM CDT Eladio Kang MD LAB BLOOD ORDERABLES Final Re sult Performing Organization Address [facility] Co de Phone Number [facility] ([place]) 1 [facility] [employer] of [facility] [place] [address] * Protein / creatinine ratio, urine, random [...] ORDERABLES Final Re sult Performing Organization Address [facility]/ZIP Co de Phone Number [facility] ([place]) 1 [facility] Department of [place] [place] [address] * CBC without differential (06/15/2024 10:47 AM [...] LAB BLOOD ORDERABLES Sherry bailey Result [facility] ([place]) [address] [facility] Department [place] [address] * Hemoglobin A1c (06/15/2024 10:47 AM CDT) Hgb A1C 5.4 4.0 - 5.6 % Estimated Average Glucose 108 mg/dL [facility] ([place]) Comment: The ADA recommends reporting an estimated Average Glucose (eAG) with all Hemoglobin A1c results using the equation derived from a study of 507 normal and diabetic adults. Minority populations were underrepresented and children were not included. (Diabetes Care 31:8751-3431, 2008). The eAG is not equivalent to a fasting glucose. Blood 06/15/2024 10:4 7 AM CDT 06/15/2024 10:59 AM CDT us Jose Miguel Mijares MD LAB BLOOD ORDERABLES Sherry l Result Performing Organization Address [facility] Co de Phone Number [facility] ([place]) [address] [facility] [place] [address] * Hemoglobin A1c (06/15/2024 10:47 AM CDT) Hgb A1C 5.2 4.0 - 5.6 % Estimated Average Glucose 103 mg/dL [facility] ([place]) Comment: The ADA recommends reporting an estimated Average Glucose (eAG) with all Hemoglobin A1c results using the equation derived from a study of 507 normal and diabetic adults. Minority populations were underrepresented and children were not included. (Diabetes Care 31:0361-0051, 2008). The eAG is not equivalent to a fasting glucose. Blood 06/15/2024 10:4 7 AM CDT 06/15/2024 10:59 AM CDT us Eladio Kang MD LAB BLOOD ORDERABLES Final Re sult Performing Organization Address [facility] Co de Phone Number [facility] ([place]) [address] [place] [address] [facility] [place] [address] * Ferritin (06/15/2024 10:47 AM CDT) Pathologist [facility] Ferritin 214 30 - 400 ng/mL Blood 06/15/2024 10:4 7 AM CDT 06/15/2024 10:59 AM CDT us Jose Miguel Mijares MD LAB BLOOD ORDERABLES Sherry l Result Performing Organization Address [facility] Co de Phone Number [facility] ([place] 1 [place] [address] * (ABNORMAL) Renal function panel (06/15/2024 10:47 AM CDT) Sodium 142 135 - 145 mmol/L Potassium, pl 5.1(H) 3.3 - 4.9 mmol/L [facility] ([place]) Chloride 105 97 - 110 mmol/L [facility] ([place]) CO2 29 22 - 32 mmol/L [facility] ([place]) Anion gap 8 2 - 15 mmol/L [facility] ([place]) BUN 17 6 - 25 mg/dL [facility] ([place]) Creatinine 1.35(H) 0.80 - 1.30 [...] 2022. Calcium 9.3 8.5 - 10.3 mg/dL [facility] ([place]) Phosphorus, pl 3.0 2.3 - 4.5 mg/dL [facility] ([place]) Albumin 4.3 3.5 - 5.0 g/dL [facility] ([place]) Blood 06/15/2024 10:4 7 AM CDT 06/15/2024 10:59 AM CDT us Eladio Kang MD LAB BLOOD ORDERABLES Final Re sult [facility] ([place]) [address] [facility] Department of Laboratories [place], [place] [id number] * Lipid panel (06/15/2024 10:47 AM CDT) [...] Sherry bailey Result [facility] ([place]) [address] [facility] Department [place] [address] * (ABNORMAL) Comprehensive metabolic panel (06/15/2024 10:47 [...] [facility] ([place] [address] [facility] Department of Laboratories [place], [place] [address] * COLONOSCOPY REPORT (11/13/2012) Anatomical Region Laterality Modality Other Narrative 11/13/2012 Ordered by an unspecified provider. us Historical Provider GI PROCEDURE ORDERABLES F inal Result from Last 3 Months or Most Recently Relevant to Health Maintenance Insurance MEDICARE IDLA MEDICARE IDPA MEDICARE IDPA MEDICARE IDPA Advance Directives For more information, please contact: [phone] * Full Code (Latest Code Status on File) Date Activated Date Inactivated Comments 03/09/2020 9:39 PM 03/16/2020 1:42 AM * Full Code Date Activated Date Inactivated Comments 04/07/2018 10:16 PM 04/14/2018 7:02 PM Care Teams Sprinkler Driver Relationship Specialty Start Date End Date Jose Miguel Mijares MD [address] [facility] [place] [address] PCP - General Family Practice 03/21/23 Eladio Kang MD Consulting Physician Nephrology 04/14/18 Gloria Gusman MD [address] [facility] [place] [address] Pulmonary Disease 04/14/18 Judah De DPGloria [address] [facility] [place] [address] Consulting Physician Foot and Ankle Surg 04/14/18
--- OUTSIDE RECORDS SUMMARY | 2024-08-27 02:05 | XMS_ITS | Clinical Summary ---
Author Organization [facility] Facility Address [address] [place] [id number] Care Team Providers Care Insurance Executive Name Role Phone Jose Miguel Mijares MD Primary Care Provider [phone] Allergies No known active allergies Medications atorvastatin [...] Description 07/01/2024 1:00 PM CDT Office Visit [facility] [address] [facility] [address] [place] [address] Eladio Kang MD Chronic kidney disease, stage 2 (mild) (Primary Dx); Type 2 diabetes mellitus with diabetic nephropathy (HCC); Hypertension 07/01/2024 Documentation Only [facility] [address] [facility] [address] [place] [address] Jody Garza MA from Last 3 Months [...] 138 kg (304 lb) 06/06/2021 11:38 AM FUNERAL ARRANGER Height 172.7 cm (5' 8 ) 06/06/2021 11:38 AM FUNERAL ARRANGER Body Mass Index 46.22 06/06/2021 11:38 AM FUNERAL ARRANGER Plan of Treatment Upcoming Encounters Date Type Department Care Team (Late st Contact Info) Description 01/05/2025 10:15 AM CDT Office Visit [facility] [address] [facility] [address] [place] [address] Eladio Kang MD [address] [facility] [address] [place] [address] Health Maintenance Due Date Last [...] 5.5 Estimated Average Glucose, POC 111 Blood specimen (specimen) Venous blood / Unknown 06/13/2023 us Historical Provider LAB BLOOD ORDERABLES Sherry l Result from Last 3 Months or Most Recently Relevant to Health Maintenance Insurance Medicare Medicaid [place] Care Teams Insurance Executive Relationship Specialty Start Date End Date Jose Miguel Mijares MD [address] [place] [address] PCP - General Family Medicine 04/06/21
--- OUTSIDE RECORDS SUMMARY | 2024-08-27 02:06 | XMS_ITS | Patient Health Record ---
Author Organization [facility] [employer] Address [address] [place] [address] Care Team Providers Care School Inspector Name Role Phone Jose Miguel Mijares MD Primary Care Provider Andreea Cain Unavailable [phone] Allergies No Known Allergies Reason For Referral [...] a day for 30 days *Reorder from [facility] for eRx and Interaction Alerts* Active Pregabalin 100 MG Oral 08/02/2023 A ctive Ondansetron HCl 4 MG Oral 08/02/2023 Not-Taking Ondansetron 4 MG Oral 08/02/2023 Ac tive Austedo 9 mg Oral 08/02/2023 Not-Ta brodie Austedo XR 18 MG 1 tablet Orally Once a day for 30 days Active Vascepa 1 GM Oral 08/02/2023 Active AUSTEDO XR 12 MG TABLET,EXTENDED RELEASE *Reorder from [facility] for eRx and Interaction Alerts* 08/02/2023 Not-Taking amLODIPine Besylate 5 MG Oral 08/02/2023 Active HYDROcodone-Acetamino phen 10-325 MG Oral 08/02/2023 Active TRUEPLUS LANCETS 28 gauge MISCELLANEOUS *Reorder from [facility] for eRx and Interaction Alerts* 08/02/2023 Active Naloxone HCl 4 MG/0.1ML Nasal 08/02/2023 Active Immunizations Vaccine Route Administration Date Status Comme nts Zoster Unknown 10/20/2019 Administered Tdap Unknown 04/08/2009 Administered Pneumococcal polysaccharide PPV23 Unknown 01/21/2020 Ad ministered Pneumococcal conjugate PCV 7 Unknown 04/08/2016 Adminis tered Pneumococcal conjugate PCV 13 Unknown 04/08/2017 Admini stered Pfizer-Biontech Covid-19 Vac cine 1st dose Unknown 01/18/2022 Administered Pfizer Biontech Covid-19 Vac cine 2nd dose Unknown 06/09/2020 Administered Pfizer Biontech Covid-19 Vac cine 2nd dose Unknown 06/30/2020 Administered Influenza virus vaccine, quadrivalent (IIV4), split virus, 0.25 mL dosage Unknown 01/06/2018 Administered Influenza virus vaccine, quadrivalent (IIV4), split virus, 0.25 mL dosage Unknown 01/21/2020 Administered Influenza virus vaccine, quadrivalent (IIV4), split virus, 0.25 mL dosage Unknown 01/29/2022 Administered Social History Sex Assigned At : Social History Observation Description Sex Assigned At Male Problems Problem Type SNOMED Code ICD Code Onset Dates Problem Status W/U Status Risk Notes Problem Schizoaffective disorder, bipolar type (31442069) Schizoaffective disorder, bipolar type (F25.0) 08/02/19 Active confirmed Problem Generalized anxiety disorder (67013972) Generalized anxiety disorder (F41.1) 08/02/19 Active confirmed Problem Primary insomnia (4296113) Primary insomnia (F51.01) 08/02/19 Active confirmed Problem Drug-induced tardive dystonia (068931041) Drug induced subacute dyskinesia (G24.01) 08/02/19 Active confirmed Problem Long-term current use of drug therapy (324088325) Other intermediate (current) drug therapy (Z79.899) 07/16/19 Active confirmed Vital Signs Heart Rate 68 /min 06/11/2024 Height-cm 172.72 cm 06/11/2024 Blood pressure diastolic 84 mm Hg 06/11/2024 Weight-kg 141.52 kg 06/11/2024 Height 68.00 in 06/11/2024 Blood pressure systolic 138 mm Hg 06/11/2024 Weight 312 lbs 06/11/2024 BMI 47.43 kg/m2 06/11/2024 Encounters Encounter Location Date Provider Diagnosis [facility] [facility] [address] [facility] [address] [place] [address] 11/11/2023 Andreea Layne Schizoaffective disorder, bipolar type F25.0 ; Generalized anxiety disorder F41.1 ; Primary insomnia F51.01 ; Drug induced subacute dyskinesia G24.01 and Other intermediate (current) drug therapy Z79.899 [facility] [facility] [address] [address] 02/20/2024 Andreea Layne [facility], [facility] [address] [address] 02/25/2024 Andreea Layne [facility], [facility] [address] [address] 02/25/2024 Andreea Layne Schizoaffective disorder, bipolar type F25.0 ; Generalized anxiety disorder F41.1 ; Primary insomnia F51.01 ; Drug induced subacute dyskinesia G24.01 and 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 Z79.899 [facility] [employer], [facility] [address] [address] 04/30/2024 Andreea Layne [facility] [employer], [facility] [address] [facility] [address] [place] [address] 06/11/2024 Andreea Layne Schizoaffective disorder, bipolar type F25.0 ; Generalized anxiety disorder F41.1 ; Primary insomnia F51.01 ; Drug induced subacute dyskinesia G24.01 and 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 Z79.899 [facility] [employer], [facility] [address] [address] 09/20/2023 Andreea Layne [facility], [facility] [address] [address] 10/02/2023 Andreea Layne [facility], [facility] [address] [place] [address] 10/04/2023 Andreea Thery Drug induced subacut e dyskinesia G24.01 [facility], [facility] [address] [place] [address] 10/04/2023 Andreea Thery Drug induced subacut e dyskinesia G24.01 [facility] [address] [facility] [address] [place] [address] 10/11/2023 Andreea Thery [facility], [facility] [address] [place] [address] 10/17/2023 Andreea Thery [facility], [facility] [address] [facility] [address] [place] [address] 10/17/2023 Andreea Thery [facility], [facility] [address] [address] 10/21/2023 Andreea Thery Drug induced subacut e dyskinesia G24.01 [facility], [facility] [address] [facility] [address] [place] [address] 10/23/2023 Andreea Thery [facility], [facility] [address] [address] 02/21/2024 Andreea Thery [facility], [facility] [address] [address] 03/17/2024 Andreea Thery Drug induced subacut e dyskinesia G24.01 [facility], [facility] [address] [address] 04/16/2024 Andreea Thery Assessments Encounter Date Diagnosis [...] 18 mg daily start rx 05/14/23 - [place] EDUCATED on all medications see Neurologist obtain [...] 18 mg daily start rx 05/14/23 - [place] EDUCATED on all medications see Neurologist obtain [...] -no control substance prescribed by [facility] patient has pain rx and medical cannabis 06/11/2024 Schizoaffective disorder, bipolar type (ICD-10 - [...] 18 mg daily start rx 05/14/23 - [place] EDUCATED on all medications see Neurologist obtain [...] -no control substance prescribed by [facility] patient has pain rx and medical cannabis 03/17/2024 Drug induced subacute dyskinesia (ICD-10 - G24.01) Electronic Prior Authorization was requested for Austedo 12 MG Tablet. Provider can order medication once approval received. 02/25/2024 Schizoaffective disorder, bipolar type (ICD-10 - [...] 18 mg daily start rx 05/14/23 - [place] EDUCATED on all medications see Neurologist obtain [...] 18 mg daily start rx 05/14/23 - [place] EDUCATED on all medications see Neurologist obtain [...] has pain rx and medical cannabis 06/11/2024 Generalized anxiety disorder (ICD-10 - F41.1) [...] 18 mg daily start rx 05/14/23 - [place] EDUCATED on all medications see Neurologist obtain [...] -no control substance prescribed by [facility] patient has pain rx and medical cannabis [...] 18 mg daily start rx 05/14/23 - [place] EDUCATED on all medications see Neurologist obtain [...] onset Alzheimer's disease with behavioral disturbance -monitor Irwinzaric d/c in hospital G30.0: Alzheimer's disease with early onset 6. Long-term drug therapy -no control substance prescribed by [facility] patient has pain rx and medical cannabis 10/04/2023 Drug induced subacute dyskinesia (ICD-10 - G24.01) Electronic Prior Authorization was requested for Austedo XR 6 MG Tablet Extended Release 24 Hour. Provider can order medication once approval received. 10/21/2023 Drug induced subacute dyskinesia (ICD-10 - [...] 18 mg daily start rx 05/14/23 - [place] EDUCATED on all medications see Neurologist obtain [...] 18 mg daily start rx 05/14/23 - [place] EDUCATED on all medications see Neurologist obtain [...] -no control substance prescribed by [facility] patient has pain rx and medical cannabis [...] 18 mg daily start rx 05/14/23 - [place] EDUCATED on all medications see Neurologist obtain [...] -no control substance prescribed by [facility] patient has pain rx and medical cannabis [...] 18 mg daily start rx 05/14/23 - [place] EDUCATED on all medications see Neurologist obtain [...] 18 mg daily start rx 05/14/23 - [place] EDUCATED on all medications see Neurologist obtain [...] -no control substance prescribed by [facility] patient has pain rx and medical cannabis 11/11/2023 Other intermediate (current) drug therapy (ICD-10 - Z79.899) Medication [...] 18 mg daily start rx 05/14/23 - [place] EDUCATED on all medications see Neurologist obtain [...] -no control substance prescribed by [facility] patient has pain rx and medical cannabis 06/11/2024 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 (ICD-10 - Z79.899) Medication [...] 18 mg daily start rx 05/14/23 - [place] EDUCATED on all medications see Neurologist obtain [...] -no control substance prescribed by [facility] patient has pain rx and medical cannabis 02/25/2024 Other intermediate (current) drug therapy (ICD-10 - Z79.899) Medication [...] 18 mg daily start rx 05/14/23 - [place] EDUCATED on all medications see Neurologist obtain [...] -no control substance prescribed by [facility] patient has pain rx and medical cannabis [...] 18 mg daily start rx 05/14/23 - [place] EDUCATED on all medications see Neurologist obtain [...] onset Alzheimer's disease with behavioral disturbance -monitor Irwinzaric d/c in hospital G30.0: Alzheimer's disease with [...] 18 mg daily start rx 05/14/23 - [place] EDUCATED on all medications see Neurologist obtain [...] Provider Name:Andreea Layne , 09/29/2024 08:15:00 AM, [address], [place], [address], Insurance Providers Payer Name Payer Address Payer Phone Subscriber Number Group Number Insured Name Patient Relationship to Insured Coverage Start Date Coverage End Date Medicare-I l Medicare [address] [place] [address] [id number] TALISHA PRUITT Self - patient is the insured Medicaid-I l Medicaid [address] [address] [place] [address] [id number] TALISHA PRUITT Self - patient is the insured Medical (General) History Medical History History ICD Code Problems: 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
--- OUTSIDE RECORDS SUMMARY | 2024-08-27 02:06 | XMS_ITS | Clinical Summary ---
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
--- NOTE | 2024-08-27 08:49 | P.PNAN_ITS ---
Anes - Initial Pre Proc Eval Procedure: Operation Date: 08/27/24 09:45 Proposed Procedures p Esophagogastroduodenoscopy - Azael Orta MD Date/Time: 08/27/24 08:49 Surgeon: Azael Orta MD Pre Op Diagnosis: Anorexia, Nausea Patient Data Age: 68 Gender: M Height: 1.73 m Weight: 145 kg Allergies Allergy/AdvReac Type Severity Reaction Status Date / Time No Known Allergies Allergy Verified 08/27/24 08:53 Home Medications ?Medication ?Instructions ?Recorded ?Confirmed ?Type Austedo 18 mg PO BID 09/19/20 08/25/24 History lumateperone 42 mg capsule 42 mg PO DAILY 05/31/21 08/25/24 History (Caplyta) hydrocodone 10 mg-acetaminophen 1 tablet PO Q6H PRN pain 07/21/21 08/25/24 History 325 mg tablet albuterol sulfate 90 mcg/actuation See Rx Instructions .Route 09/12/22 08/25/24 Rx aerosol inhaler .COMPLEX #8.5 ea lancets 28 gauge (TRUEplus Lancets) #300 ea 08/16/23 08/25/24 Rx ipratropium bromide 0.02 % See Rx Instructions .Route 01/01/24 08/25/24 Rx solution for inhalation .COMPLEX #300 caps polyethylene glycol 3350 17 17 g PO DAILY #510 grams 01/07/24 08/25/24 Rx gram/dose oral powder (Miralax) icosapent ethyl 1 gram capsule See Rx Instructions .Route 02/21/24 08/25/24 Rx (Vascepa) .COMPLEX #180 caps naloxegol 25 mg tablet (Movantik) 25 mg PO DAILY #30 tabs 05/06/24 08/25/24 Rx amlodipine 5 mg tablet 5 mg PO DAILY #90 tabs 06/15/24 08/25/24 Rx atorvastatin 20 mg tablet 20 mg PO DAILY #90 tabs 06/15/24 08/25/24 Rx blood sugar diagnostic (Contour #100 ea 06/29/24 08/25/24 Rx Next Test Strips) albuterol sulfate 2.5 mg/3 mL See Rx Instructions .Route 07/06/24 08/25/24 Rx (0.083 %) solution for nebulization .COMPLEX #180 mL arformoterol 15 mcg/2 mL solution See Rx Instructions .Route 07/09/24 08/25/24 Rx for nebulization .COMPLEX #120 mL budesonide 0.5 mg/2 mL suspension See Rx Instructions .Route 07/09/24 08/25/24 Rx for nebulization .COMPLEX #120 mL metoclopramide HCl 10 mg tablet 10 mg PO Q6H PRN nausea and 08/06/24 08/25/24 Rx (Reglan) vomiting #14 tabs pregabalin 150 mg capsule 150 mg PO BID #60 caps 08/24/24 08/25/24 Rx ondansetron 4 mg disintegrating 4 mg PO Q12H PRN nausea and 08/25/24 08/25/24 Rx tablet vomiting #20 tabs sitagliptin phosphate 50 mg tablet 50 mg PO DAILY #90 tabs 08/25/24 08/25/24 Rx (Januvia) Patient hx anesthesia problems: none Family hx anesthesia problems: none Results Review: All pre-operative results and documents have been reviewed as part of the pre- operative evaluation. 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 Hypertension Diabetes Depression Anxiety Schizophrenia Surgical History Surgical History H/O foot surgery Left foot in 1210-4266 Family History Family History Mother Diabetes mellitus Sibling Cancer of brain Social History Social History Smoking packs per day: 2 Smoking cigarettes per day: 40.0 Years smoked: 53 Smoking pack-years: 106.00 Smoking status: Former smoker Tobacco type: cigarettes Smoking end date: 04/23/22 Alcohol intake: former Substance use: never Substance use type: does not use Other substance usage details: HEMP Lack of Transportation: No Lack of Food: Never True Current Housing: I Have Housing Concerned About Future Housing: No Difficulty Paying Gas/Electric Bills: No Difficulty Paying for Meds: No Currently Unemployed: No Education: High School Diploma/GED Difficulty w/ Childcare or Family Care: No Living arrangements: alone Gender identity (if verbalized by the patient): Male Spiritual care concerns: No Anes - Eval Final PreProcedure Day of Procedure 08/27/24 08:49 Patient weight: morbidly obese Heart: regular rate and rhythm Lungs: clear to auscultation Airway: Mallampati scale class II Neurological: alert and oriented Last oral intake: >/= 8 hours ASA classification: IV Emergent: no Anesthetic plan: proceed Anesthesia type and monitoring: general GIVS and standard monitoring Results Review: All pre-operative results and documents have been reviewed as part of the pre- operative evaluation. Informed Consent: The patient's anesthetic plan and its attendant risks and benefits were discussed with the patient/family/POA. Questions were solicited and answers provided to the satisfaction of the patient/family/POA.
[2024-08-27 08:54] VITALS: BP 128/76; PULSE 86; RESP 18; TEMP 36.1; O2SAT 97
[2024-08-27] MEDS: LACTATED RINGERS 1,000 ML 150 ML IV CONT (09:06)
[2024-08-27 09:07] LABS: Glucose Point of Care 90 mg/dl (65-105)
--- NOTE | 2024-08-27 09:08 | PM.HPGS ---
History of Present Illness History of Present Illness Consent: Risks, benefits, and alternatives have been discussed and questions answered. Patient agrees to proceed with procedure. 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 Hypertension Diabetes Depression Anxiety Schizophrenia Surgical History Surgical History H/O foot surgery Left foot in 6248-6059 Family History Family History Mother Diabetes mellitus Sibling Cancer of brain Social History Social History Smoking packs per day: 2 Smoking cigarettes per day: 40.0 Years smoked: 53 Smoking pack-years: 106.00 Smoking status: Former smoker Tobacco type: cigarettes Smoking end date: 04/23/22 Alcohol intake: former Substance use: never Substance use type: does not use Other substance usage details: HEMP Lack of Transportation: No Lack of Food: Never True Current Housing: I Have Housing Concerned About Future Housing: No Difficulty Paying Gas/Electric Bills: No Difficulty Paying for Meds: No Currently Unemployed: No Education: High School Diploma/GED Difficulty w/ Childcare or Family Care: No Living arrangements: alone Gender identity (if verbalized by the patient): Male Spiritual care concerns: No Meds Home Medications and Allergies Home Medications ?Medication ?Instructions ?Recorded ?Confirmed ?Type Austedo 18 mg PO BID 09/19/20 08/25/24 History lumateperone 42 mg capsule 42 mg PO DAILY 05/31/21 08/25/24 History (Caplyta) hydrocodone 10 mg-acetaminophen 1 tablet PO Q6H PRN pain 07/21/21 08/25/24 History 325 mg tablet albuterol sulfate 90 mcg/actuation See Rx Instructions .Route 06/07/23 05/20/25 Rx aerosol inhaler .COMPLEX #8.5 ea lancets 28 gauge (TRUEplus Lancets) #300 ea 08/16/23 08/25/24 Rx ipratropium bromide 0.02 % See Rx Instructions .Route 01/01/24 08/25/24 Rx solution for inhalation .COMPLEX #300 caps polyethylene glycol 3350 17 17 g PO DAILY #510 grams 01/07/24 08/25/24 Rx gram/dose oral powder (Miralax) icosapent ethyl 1 gram capsule See Rx Instructions .Route 02/21/24 08/25/24 Rx (Vascepa) .COMPLEX #180 caps naloxegol 25 mg tablet (Movantik) 25 mg PO DAILY #30 tabs 05/06/24 08/25/24 Rx amlodipine 5 mg tablet 5 mg PO DAILY #90 tabs 06/15/24 08/25/24 Rx atorvastatin 20 mg tablet 20 mg PO DAILY #90 tabs 06/15/24 08/25/24 Rx blood sugar diagnostic (Contour #100 ea 06/29/24 08/25/24 Rx Next Test Strips) albuterol sulfate 2.5 mg/3 mL See Rx Instructions .Route 07/06/24 08/25/24 Rx (0.083 %) solution for nebulization .COMPLEX #180 mL arformoterol 15 mcg/2 mL solution See Rx Instructions .Route 07/09/24 08/25/24 Rx for nebulization .COMPLEX #120 mL budesonide 0.5 mg/2 mL suspension See Rx Instructions .Route 07/09/24 08/25/24 Rx for nebulization .COMPLEX #120 mL metoclopramide HCl 10 mg tablet 10 mg PO Q6H PRN nausea and 08/06/24 08/25/24 Rx (Reglan) vomiting #14 tabs pregabalin 150 mg capsule 150 mg PO BID #60 caps 08/24/24 08/25/24 Rx ondansetron 4 mg disintegrating 4 mg PO Q12H PRN nausea and 08/25/24 08/25/24 Rx tablet vomiting #20 tabs sitagliptin phosphate 50 mg tablet 50 mg PO DAILY #90 tabs 08/25/24 08/25/24 Rx (Januvia) Allergies Allergy/AdvReac Type Severity Reaction Status Date / Time No Known Allergies Allergy Verified 08/27/24 08:53 Vital Signs Vital Signs - 24 hr 08/27/24 08:54 Temperature 97 F L Pulse Rate 86 Respiratory Rate 18 Blood Pressure 128/76 Pulse Oximetry 97 Oxygen Delivery Room Air Exam Const: General: comfortable and no acute distress HENMT: Face/Nose/Sinus: Normal nares present Eyes: General: appearance normal, both eyes and all related structures Neck: Neck: no JVD Resp: Auscultation: clear to auscultation bilaterally Cardio: Rate: regular rate Rhythm: regular rhythm GI: Inspection: non-distended GI Palp: Yes Soft to palpation Skin: General skin exam: normal color Neuro: General: gait normal Speech: normal speech Extrem: General: normal to inspection Psych: Mental Status: mental status grossly normal Assessment and Plan Assessment and plan (1) Nausea: Code(s): R11.0 - Nausea Status: Acute Assessment and Plan: egd (2) Dysphagia: Qualifiers: Dysphagia type: esophageal phase Qualified Code(s): R13.19 - Other dysphagia Code(s): R13.10 - Dysphagia, unspecified Status: Acute
[2024-08-27 09:25] VITALS: BP 120/71; PULSE 87; RESP 18; O2SAT 100
[2024-08-27 09:35] VITALS: BP 137/72; PULSE 78; RESP 18; O2SAT 97
[2024-08-27 09:45] VITALS: BP 137/86; PULSE 80; RESP 18; O2SAT 97
== END 2024-08-27 09:57 | disposition home or self-care (01) ==
PROVIDERS: PCP Family Medicine; Referring Provider Nurse Practitioner Family; Visit Provider Internal Medicine Gastroenterology
PROC: 0DJ08ZZ Inspection of Upper Intestinal Tract, Via Natural or Artificial Opening Endoscopic (ICD-10-PCS; CPT 43249; principal; 2024-08-27 09:45)
DX: K22.70 Barrett's esophagus without dysplasia (principal); K21.00 Gastro-esophageal reflux disease with esophagitis, without bleeding; K22.2 Esophageal obstruction; K44.9 Diaphragmatic hernia without obstruction or gangrene; K29.70 Gastritis, unspecified, without bleeding; E11.9 Type 2 diabetes mellitus without complications; Z87.891 Personal history of nicotine dependence; E66.01 Morbid (severe) obesity due to excess calories; Z68.42 Body mass index [BMI] 45.0-49.9, adult
CPT/HCPCS: 43249; 43239; 82948; 88305; C1726; J2003; J2704; J7120

== ENCOUNTER 2024-10-02 13:27 | Outpatient (CLI) | payer MEDICARE, MEDICAID, SELFPAY ==
--- NOTE | ~2024-10-02 | CT_ITS ---
Clinical Indication: Shortness of breath CT Scan of the Chest with Contrast: Technique: Contiguous sections were acquired throughout the chest after intravenous administration of 100 cc of Omnipaque 350. Dose reduction technique was used on this scan by utilizing automated expos ure control and iterative reconstruction technique. The dose-length product (DLP) was 1063.05 mGy-cm. COMPARISON: 03/16/2024 Findings: There is no evidence of any significant mediastinal, hilar or axillary lymphadenopathy. There is no f illing defect in the pulmonary arterial tree to suggest pulmonary embolus. There is no evidence of ao rtic dissection or aneurysm. There is no evidence of pleural or pericardial effusion. There is a 1.5 cm pleural-based nodular density at the posterior left upper lobe/apex (axial image 30 ). Stable 7 mm left basilar pulmonary nodule (image 97). Images through the upper abdomen reveal low-density left adrenal adenoma. Calcified gallstones are pr esent. Stable L1 compression deformity. Impression: No evidence of pulmonary embolus, aortic dissection, or aortic aneurysm. 1.5 cm pleural-based nodular opacity at the posterior left upper lobe. Diagnostic considerations incl ude pneumonia, atelectasis, or neoplasm. Correlate clinically. Follow-up exam in 1-3 months recommend ed to reassess. Tissue sampling or PET/CT can also be considered as indicated. Reviewed, dictated and finalized at [facility]. Impression: No evidence of pulmonary embolus, aortic dissection, or aortic aneurysm. 1.5 cm pleural-based nodular opacity at the posterior left upper lobe. Diagnost ic considerations include pneumonia, atelectasis, or neoplasm. Correlate clinic ally. Follow-up exam in 1-3 months recommended to reassess. Tissue sampling or PET/CT can also be considered as indicated.
[2024-10-02 13:22] LABS: Estimated Glomerular Filt Rate 50
[2024-10-02 14:37] LABS: Hemoglobin A1C. 5.6 % (<5.7)
[2024-10-02 15:05] LABS: Alanine Aminotransferase 22 U/L (6-50); Albumin Level 3.8 g/dL (3.5-5.1); Alkaline Phosphatase 56 U/L (38-126); Anion Gap 8 mmol/L (4-12); Aspartate Amino Transferase 34 U/L (17-59); Bilirubin,Total 0.7 mg/dL (0.2-1.3); Blood Urea Nitrogen 22 mg/dL (9-20); Carbon Dioxide 26 mmol/L (22-30); Chloride 103 mmol/L (98-107); Cholesterol 150 mg/dL (0-200); Estimated Glomerular Filt Rate 56; Glucose 74 mg/dL (65-110); HDL Direct 45 mg/dL; LDL Cholesterol Direct 64 mg/dL; Potassium 4.3 mmol/L (3.4-5.0); Sodium 137 mmol/L (137-145); Total Protein 6.9 g/dL (6.3-8.2); Triglycerides 113 mg/dL (<150)
[2024-10-02 15:21] LABS: Prostate Specific Antigen 0.6 ng/mL (< OR = 4.0)
[2024-10-02 15:51] LABS: Vitamin D 25 Hydroxy 19.8 ng/mL
== END 2024-10-02 13:28 | disposition home or self-care (01) ==
PROVIDERS: PCP Family Medicine; Visit Provider Physician Assistant
DX: R91.8 Other nonspecific abnormal finding of lung field (principal); R07.81 Pleurodynia; I10 Essential (primary) hypertension; E11.9 Type 2 diabetes mellitus without complications; E66.01 Morbid (severe) obesity due to excess calories; Z68.42 Body mass index [BMI] 45.0-49.9, adult; Z79.899 Other long term (current) drug therapy; G47.33 Obstructive sleep apnea (adult) (pediatric); Z12.5 Encounter for screening for malignant neoplasm of prostate
CPT/HCPCS: 36415; 71275; 80053; 80061; 82306; 82607; 83036; 84153; G0103; Q9967

== ENCOUNTER 2024-10-22 11:00 | Outpatient (CLI) | payer MEDICARE, MEDICAID, SELFPAY ==
--- NOTE | ~2024-10-22 | XR_ITS ---
Right Shoulder Technique: AP and scapular Y views were obtained. Clinical History: Pain Findings: No fracture or dislocation is seen. Osseous alignment is anatomic. The glenohumeral and acr omioclavicular joint spaces are preserved. Large focus of calcification is compatible with calcific t endinitis. Impression: Calcific tendinitis of the rotator cuff. Reviewed, dictated and finalized at location . Impression: Calcific tendinitis of the rotator cuff.
--- OUTSIDE RECORDS SUMMARY | 2024-10-22 11:23 | XMS_ITS | Clinical Summary ---
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
--- OUTSIDE RECORDS SUMMARY | 2024-10-22 11:24 | XMS_ITS | Patient Health Record ---
Author Organization [facility] [place] Address [address] [place] [address] Care Team Providers Care Spa Attendant Name Role Phone Jose Miguel Mijares MD Primary Care Provider Andreea Cain Unavailable [phone] Allergies No Known Allergies Reason For Referral No Information Medications Medication SIG (Take, Route, Frequency, Duration) Notes Start Date End Date Status Ondansetron 4 MG Oral 08/02/2023 Ac tive Vascepa 1 GM Oral 08/02/2023 Active AUSTEDO XR 12 MG TABLET,EXTENDED RELEASE *Reorder from [employer] for eRx and Interaction Alerts* 08/02/2023 Not-Taking Austedo XR 24 MG 1 tablet Orally Once a day; Duration: 30 days d/c 18 mg dose Active Cyclobenzaprine HCl 10 MG Oral 08/02/2023 Active Januvia 50 MG Oral 08/02/2023 Not-T aking traZODone HCl 100 MG 1 tablet at bedtime Oral bedtime; Duration: 30 days d/c 50 mg dose Active Pregabalin 100 MG Oral 08/02/2023 A ctive Ondansetron HCl 4 MG Oral 08/02/2023 Not-Taking Caplyta 42 MG 1 capsule Oral Once a day; Duration: 30 days *Reorder from [facility] for eRx and Interaction Alerts* Active True Metrix Blood Glucose Test In Vitro 08/02/2023 Active Atorvastatin Calcium 20 MG Oral 08/02/2023 Active TRUEPLUS LANCETS 28 gauge MISCELLANEOUS *Reorder from [facility] for eRx and Interaction Alerts* 08/02/2023 Active Naloxone HCl 4 MG/0.1ML Nasal 08/02/2023 Active amLODIPine Besylate 5 MG Oral 08/02/2023 Active HYDROcodone-Acetamino phen 10-325 MG Oral 08/02/2023 Active Austedo 9 mg Oral 08/02/2023 Not-Ta brodie Immunizations Vaccine Route Administration Date Status Comme [...] Administered Zoster Unknown 10/20/2019 Administered Social History Tobacco Use: Social History Observation Description Date Details (start date - stop date) Former Smoker NA - NA Sex Assigned At : Social History Observation Description Sex Assigned At Male Tobacco Control (Standard) Question Answer Notes Tobacco use: Former smoker Problems Problem Type SNOMED Code ICD Code Onset Dates Problem Status W/U Status Risk Notes Problem Schizoaffective disorder, bipolar type (37419813) Schizoaffective disorder, bipolar type (F25.0) 08/02/19 24 Active confirmed Problem Generalized anxiety disorder (F41.1) 08/02/19 24 Active confirmed Problem Primary insomnia (5898359) Primary insomnia (F51.01) 08/02/19 Active confirmed Problem Drug-induced tardive dystonia (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) Drug induced subacute dyskinesia (G24.01) 08/02/19 Active confirmed Problem Long-term current use of drug therapy (617594663) Other usp (current) drug therapy (Z79.899) 07/16/19 Active confirmed Vital Signs Heart Rate 106 /min 10/01/2024 Respiratory Rate 19 /min 10/01/2024 Height-cm 172.72 cm 10/01/2024 Blood pressure diastolic 84 mm Hg 10/01/2024 Weight-kg 139.71 kg 10/01/2024 Height 68.00 in 10/01/2024 Blood pressure systolic 143 mm Hg 10/01/2024 Weight 308 lbs 10/01/2024 BMI 46.83 kg/m2 10/01/2024 Encounters Encounter Location Date Provider Diagnosis [place] [id number] [facility] [address] [place] [address] 11/11/2023 Andreea Layne Schizoaffective disorder, bipolar type F25.0 ; Generalized anxiety disorder F41.1 ; Primary insomnia F51.01 ; Drug induced subacute dyskinesia G24.01 and Other usp (current) drug therapy Z79.899 [place] [id number] [address] 02/20/2024 Andreea Layne [facility] [address] [facility] [address] [place] [address] 02/25/2024 Andreea Layne [facility] [address] [facility] [address] [place] [address] 02/25/2024 Andreea Layne Schizoaffective disorder, bipolar type F25.0 ; Generalized anxiety disorder F41.1 ; Primary insomnia F51.01 ; Drug induced subacute dyskinesia G24.01 and Other usp (current) drug therapy Z79.899 [facility] [address] [facility] [address] [place] [address] 04/30/2024 Andreea Layne [facility] [address] [facility] [address] [place] [address] 06/11/2024 Andreea Layne Schizoaffective disorder, bipolar type F25.0 ; Generalized anxiety disorder F41.1 ; Primary insomnia F51.01 ; Drug induced subacute dyskinesia G24.01 and Other usp (current) drug therapy Z79.899 [facility], [facility] [address] [facility] [address] [place] [address] 09/29/2024 Andreea Layne [facility], [facility] [address] [facility] [address] [place] [address] 10/01/2024 Andreea Xi Encounter for screen ing for cardiovascular disorders Z13.6 ; Dietary counseling and surveillance Z71.3 ; Schizoaffective disorder, bipolar type F25.0 ; Generalized anxiety disorder F41.1 ; Primary insomnia F51.01 ; Drug induced subacute dyskinesia G24.01 ; Other usp (current) drug therapy Z79.899 and Negative depression screening Z13.31 [facility] [employer] [facility] [address] [place] [address] 10/23/2023 Andreea Layne [facility] [address] [place] [address] 02/21/2024 Andreea Xi [facility] [address] [place] [address] 03/17/2024 Andreea Layne Drug induced subacut e dyskinesia G24.01 [facility] [address] [place] [address] 04/16/2024 Andreea Layne Assessments Encounter Date Diagnosis (ICD Code) Assessment Notes Treatment Notes Treatment Clinical Notes Section Notes 11/11/2023 Schizoaffective disorder, bipolar type (ICD-10 - [...] 18 mg daily start rx 05/14/23 - [place] EDUCATED on all medications see Neurologist obtain [...] drug therapy -no control substance prescribed by [facility] patient has pain rx and medical cannabis [...] drug therapy -no control substance prescribed by [facility] patient has pain rx and medical cannabis [...] 18 mg daily start rx 05/14/23 - [place] EDUCATED on all medications see Neurologist obtain [...] 18 mg daily start rx 05/14/23 - [place] EDUCATED on all medications see Neurologist obtain [...] drug therapy -no control substance prescribed by [facility] patient has pain rx and medical cannabis 10/01/2024 Encounter for screening for cardiovascular disorders (ICD-10 - Z13.6) 1. Schizoaffective disorder, bipolar type - monitor for zack and mood stable may add Depakote if have zack discuss with patientmonitor kidney function improved per patient labs [facility] Caplyta 42 mg daily eat with medication, mood improved, no hand shaking and cognitive improved, educated on metabolic and movement d/o no control substances prescribed educated on risk monitor for zack all meds go to [facility] and pill pack 2. Tardive dyskinesia - increase Austedo XR 24 mg daily- reported hands shakes and effects writing start rx 05/14/23 - [place] EDUCATED on all medications see Neurologist obtain labs PCP AIMS= 2 DENTURES 11/12/22 AIMS= 1 dentures presently not wearing 10/01/24 3. Generalized anxiety disorder -monitor no control [...] drug therapy -no control substance prescribed by [facility] patient has pain rx and medical cannabis 10/01/2024 Dietary counseling and surveillance (ICD-10 - Z71.3) 1. Schizoaffective disorder, bipolar type - monitor for zack and mood stable may add Depakote if have zack discuss with patientmonitor kidney function improved per patient labs [facility] Caplyta 42 mg daily eat with medication, mood improved, no hand shaking and cognitive improved, educated on metabolic and movement d/o no control substances prescribed educated on risk monitor for zack all meds go to [facility] and pill pack 2. Tardive dyskinesia - increase Austedo XR 24 mg daily- reported hands shakes and effects writing start rx 05/14/23 - [place] EDUCATED on all medications see Neurologist obtain labs PCP AIMS= 2 DENTURES 11/12/22 AIMS= 1 dentures presently not wearing 10/01/24 3. Generalized anxiety disorder -monitor no control [...] patientmonitor kidney function improved per patient labs [facility] Caplyta 42 mg daily eat with medication, mood improved, no hand shaking and cognitive improved, educated on metabolic and movement d/o no control substances prescribed educated on risk monitor for zack all meds go to [facility] and pill pack 2. Tardive dyskinesia - Austedo XR 18 mg daily start rx 05/14/23 - [place] EDUCATED on all medications see Neurologist obtain [...] drug therapy -no control substance prescribed by [facility] patient has pain rx and medical cannabis [...] 18 mg daily start rx 05/14/23 - [place] EDUCATED on all medications see Neurologist obtain [...] drug therapy -no control substance prescribed by [facility] patient has pain rx and medical cannabis [...] 18 mg daily start rx 05/14/23 - [place] EDUCATED on all medications see Neurologist obtain [...] has pain rx and medical cannabis 11/11/2023 Drug induced subacute dyskinesia (ICD-10 - [...] 18 mg daily start rx 05/14/23 - [place] EDUCATED on all medications see Neurologist obtain [...] drug therapy -no control substance prescribed by [facility] patient has pain rx and medical cannabis [...] 18 mg daily start rx 05/14/23 - [place] EDUCATED on all medications see Neurologist obtain [...] drug therapy -no control substance prescribed by [facility] patient has pain rx and medical cannabis [...] 18 mg daily start rx 05/14/23 - [place] EDUCATED on all medications see Neurologist obtain [...] patient has pain rx and medical cannabis 10/01/2024 Schizoaffective disorder, bipolar type (ICD-10 - F25.0) [...] patientmonitor kidney function improved per patient labs [facility] Caplyta 42 mg daily eat with medication, mood improved, no hand shaking and cognitive improved, educated on metabolic and movement d/o no control substances prescribed educated on risk monitor for zack all meds go to [facility] and pill pack 2. Tardive dyskinesia - increase Austedo XR 24 mg daily- reported hands shakes and effects writing start rx 05/14/23 - [place] EDUCATED on all medications see Neurologist obtain labs PCP AIMS= 2 DENTURES 11/12/22 AIMS= 1 dentures presently not wearing 10/01/24 3. Generalized anxiety disorder -monitor no control [...] drug therapy -no control substance prescribed by [facility] patient has pain rx and medical cannabis 10/01/2024 Generalized anxiety disorder (ICD-10 - F41.1) Learning [...] patientmonitor kidney function improved per patient labs [facility] Caplyta 42 mg daily eat with medication, mood improved, no hand shaking and cognitive improved, educated on metabolic and movement d/o no control substances prescribed educated on risk monitor for zack all meds go to [facility] and pill pack 2. Tardive dyskinesia - increase Austedo XR 24 mg daily- reported hands shakes and effects writing start rx 05/14/23 - [place] EDUCATED on all medications see Neurologist obtain labs PCP AIMS= 2 DENTURES 11/12/22 AIMS= 1 dentures presently not wearing 10/01/24 3. 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 - [...] 18 mg daily start rx 05/14/23 - [place] EDUCATED on all medications see Neurologist obtain [...] drug therapy -no control substance prescribed by [facility] patient has pain rx and medical cannabis 02/25/2024 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 (ICD-10 - [...] 18 mg daily start rx 05/14/23 - [place] EDUCATED on all medications see Neurologist obtain [...] drug therapy -no control substance prescribed by [facility] patient has pain rx and medical cannabis 06/11/2024 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 Schizoaffective disorder, bipolar type - monitor for zack and mood stable may add Depakote if have zack discuss with patientmonitor kidney function improved per patient labs [facility] Caplyta 42 mg daily eat with medication, mood improved, no hand shaking and cognitive improved, educated on metabolic and movement d/o no control substances prescribed educated on risk monitor for zack all meds go to [facility] and pill pack 2. Tardive dyskinesia - increase Austedo XR 24 mg daily- reported hands shakes and effects writing start rx 05/14/23 - [place] EDUCATED on all medications see Neurologist obtain labs PCP AIMS= 2 DENTURES 11/12/22 AIMS= 1 dentures presently not wearing 10/01/24 3. Generalized anxiety disorder -monitor no control [...] drug therapy -no control substance prescribed by [facility] patient has pain rx and medical cannabis 10/01/2024 Drug induced subacute dyskinesia (ICD-10 - G24.01) [...] patientmonitor kidney function improved per patient labs [facility] Caplyta 42 mg daily eat with medication, mood improved, no hand shaking and cognitive improved, educated on metabolic and movement d/o no control substances prescribed educated on risk monitor for zack all meds go to [facility] and pill pack 2. Tardive dyskinesia - increase Austedo XR 24 mg daily- reported hands shakes and effects writing start rx 05/14/23 - [place] EDUCATED on all medications see Neurologist obtain labs PCP AIMS= 2 DENTURES 11/12/22 AIMS= 1 dentures presently not wearing 10/01/24 3. Generalized anxiety disorder -monitor no control [...] patient has pain rx and medical cannabis 10/01/2024 Other usp (current) drug therapy (ICD-10 - Z79.899) Medication Refill: Care Instructions material was published, Medication Refill: Care Instructions material was published 1. Schizoaffective disorder, bipolar type - monitor for zack and mood stable may add Depakote if have zack discuss with patientmonitor kidney function improved per patient labs [facility] Caplyta 42 mg daily eat with medication, mood improved, no hand shaking and cognitive improved, educated on metabolic and movement d/o no control substances prescribed educated on risk monitor for zack all meds go to [facility] and pill pack 2. Tardive dyskinesia - increase Austedo XR 24 mg daily- reported hands shakes and effects writing start rx 05/14/23 - [place] EDUCATED on all medications see Neurologist obtain labs PCP AIMS= 2 DENTURES 11/12/22 AIMS= 1 dentures presently not wearing 10/01/24 3. Generalized anxiety disorder -monitor no control [...] drug therapy -no control substance prescribed by [facility] patient has pain rx and medical cannabis 10/01/2024 Negative depression screening (ICD-10 - Z13.31) 1. Schizoaffective disorder, bipolar type - monitor for zack and mood stable may add Depakote if have zack discuss with patientmonitor kidney function improved per patient labs [facility] Caplyta 42 mg daily eat with medication, mood improved, no hand shaking and cognitive improved, educated on metabolic and movement d/o no control substances prescribed educated on risk monitor for zack all meds go to [facility] and pill pack 2. Tardive dyskinesia - increase Austedo XR 24 mg daily- reported hands shakes and effects writing start rx 05/14/23 - [place] EDUCATED on all medications see Neurologist obtain labs PCP AIMS= 2 DENTURES 11/12/22 AIMS= 1 dentures presently not wearing 10/01/24 3. Generalized anxiety disorder -monitor no control [...] drug therapy -no control substance prescribed by [facility] patient has pain rx and medical cannabis [...] patientmonitor kidney function improved per patient labs [facility] Caplyta 42 mg daily eat with medication, mood improved, no hand shaking and cognitive improved, educated on metabolic and movement d/o no control substances prescribed educated on risk monitor for zack all meds go to [facility] and pill pack 2. Tardive dyskinesia - discuss Austedo XR 18 mg daily start rx 05/14/23 - [place] EDUCATED on all medications see Neurologist obtain [...] office of the Alzheimer's Association ( ; http://www.Emunamedica.or g), the Alzheimer's Disease Education and Referral Center (ADEAR) ( ; http://www.robi. h.gov/Alzheimers/ ), Notes: referral to the local chapter or national office of the Alzheimer's Association ( ; http://www.alz.or g), the Alzheimer's Disease Education and Referral Center (ADEAR) ( ; http://www.robi. h.gov/Alzheimers/ ), 1. Schizoaffective disorder, bipolar type [...] 18 mg daily start rx 05/14/23 - [place] EDUCATED on all medications see Neurologist obtain [...] Next Appt Details Provider Name:Andreea Layne , 01/01/2025 02:00:00 PM, [address], [facility] [address], [place], [address], Insurance Providers Payer Name Payer Address Payer Phone Subscriber Number Group Number Insured Name Patient Relationship to Insured Coverage Start Date Coverage End Date Medicare-I l Medicare [address] [place] [phone] [id number] TALISHA PRUITT Self - patient is the insured Medicaid-I l Medicaid [address] [address] [place] [address] [id number] TALISHA PRUITT Self - patient is the insured Medical (General) History Medical History History ICD Code Problems: 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
== END 2024-10-22 11:01 | disposition home or self-care (01) ==
PROVIDERS: PCP Family Medicine; Visit Provider Nurse Practitioner Family
DX: M25.511 Pain in right shoulder (principal); G89.29 Other chronic pain
CPT/HCPCS: 73030

== ENCOUNTER 2024-11-02 09:32 | Outpatient (CLI) | payer MEDICARE, MEDICAID, SELFPAY ==
--- NOTE | ~2024-11-02 | CT_ITS ---
CT Scan of the Chest without Contrast: Clinical Indication: Pulmonary nodule Technique: Contiguous sections were acquired throughout the chest without intravenous contrast. Dose reduction technique was used on this scan by utilizing automated exposure control and iterative recon struction technique. The dose-length product (DLP) was 470.08 mGy-cm. COMPARISON: 10/02/2024 Findings: There is no evidence of any significant mediastinal, hilar or axillary lymphadenopathy. The mediastin al soft tissues appear normal. There is no evidence of pleural or pericardial effusion. Posterior left upper lobe nodular opacity is decreased in size, now measuring 8 mm in diameter. Images through the upper abdomen reveal calcified gallstones. Stable L1 compression fracture. Impression: Decreasing left upper lobe nodule opacity, compatible with improving atelectasis or pneumonia. Reviewed, dictated and finalized at location . Impression: Decreasing left upper lobe nodule opacity, compatible with improving atelectasi s or pneumonia.
--- OUTSIDE RECORDS SUMMARY | 2024-11-02 10:00 | XMS_ITS | Patient Health Record ---
Author Organization [facility] As [employer] Address [address] [place] [address] Care Team Providers Care Ciso Name Role Phone Jose Miguel Mijares MD Primary Care Provider Andreea Cain Unavailable [phone] Allergies No Known Allergies Reason For Referral No Information Medications Medication SIG (Take, Route, Frequency, Duration) Notes Start Date End Date Status Ondansetron 4 MG Oral 08/02/2023 Ac tive Vascepa 1 GM Oral 08/02/2023 Active AUSTEDO XR 12 MG TABLET,EXTENDED RELEASE *Reorder from [employer] for eRx and Interaction Alerts* 08/02/2023 Not-Taking [...] a day; Duration: 30 days *Reorder from [employer] for eRx and Interaction Alerts* Active True Metrix Blood Glucose Test In Vitro 08/02/2023 Active Atorvastatin Calcium 20 MG Oral 08/02/2023 Active TRUEPLUS LANCETS 28 gauge MISCELLANEOUS *Reorder from [employer] for eRx and Interaction Alerts* 08/02/2023 Active [...] Risk Notes Problem Schizoaffective disorder, bipolar type (26163212) Schizoaffective disorder, bipolar type (F25.0) 08/02/19 24 Active confirmed Problem Generalized anxiety disorder (09869189) Generalized anxiety disorder (F41.1) 08/02/19 Active confirmed Problem Primary insomnia (6089551) Primary insomnia (F51.01) 08/02/19 Active confirmed Problem Drug induced subacute dyskinesia (G24.01) 08/02/19 Active confirmed Problem Long-term current use of drug therapy (645552399) Other mcfp (current) drug therapy (Z79.899) 07/16/19 Active confirmed Vital Signs Heart Rate 106 /min 10/01/2024 Respiratory Rate 19 /min 10/01/2024 Height-cm 172.72 cm 10/01/2024 Blood pressure diastolic 84 mm Hg 10/01/2024 Weight-kg 139.71 kg 10/01/2024 Height 68.00 in 10/01/2024 Blood pressure systolic 143 mm Hg 10/01/2024 Weight 308 lbs 10/01/2024 BMI 46.83 kg/m2 10/01/2024 Encounters Encounter Location Date Provider Diagnosis [place] [id number] [facility] [address] [place] [address] 11/11/2023 Andreea Layne Schizoaffective disorder, bipolar type F25.0 ; Generalized anxiety disorder F41.1 ; Primary insomnia F51.01 ; Drug induced subacute dyskinesia G24.01 and Other mcfp (current) drug therapy Z79.899 [place] [address] [address] 02/20/2024 Andreea Layne [place] [address] [address] 02/25/2024 Andreea Layne [place] [address] [address] 02/25/2024 Andreea Layne Schizoaffective disorder, bipolar type F25.0 ; Generalized anxiety disorder F41.1 ; Primary insomnia F51.01 ; Drug induced subacute dyskinesia G24.01 and Other mcfp (current) drug therapy Z79.899 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 Z79.899 [facility] [address] [address] 09/29/2024 Andreea Layne [facility], [facility] [address] [address] 10/01/2024 Andreea Layne Encounter for screen ing for cardiovascular disorders Z13.6 ; Dietary counseling and surveillance Z71.3 ; Schizoaffective disorder, bipolar type F25.0 ; Generalized anxiety disorder F41.1 ; Primary insomnia F51.01 ; Drug induced subacute dyskinesia G24.01 ; Other mcfp (current) drug therapy Z79.899 and Negative depression screening Z13.31 [facility] [address] [place] [address] 02/21/2024 Andreea Therjocelyne [facility] [address] [place] [address] 03/17/2024 Andreea Layne Drug induced subacut e dyskinesia G24.01 [place] [address] [place] [address] 04/16/2024 Andreea Layne Assessments Encounter Date Diagnosis (ICD Code) Assessment Notes Treatment Notes Treatment Clinical Notes Section Notes 10/01/2024 Encounter for screening for cardiovascular disorders (ICD-10 - Z13.6) 1. Schizoaffective disorder, bipolar type - monitor for zack and mood stable may add Depakote if have zack discuss with patientmonitor kidney function improved per patient labs [facility] Caplyta 42 mg daily eat with medication, [...] has pain rx and medical cannabis 11/11/2023 Schizoaffective disorder, bipolar type (ICD-10 - [...] 18 mg daily start rx 05/14/23 - [facility] EDUC[facility] on all medications see Neurologist obtain [...] drug therapy -no control substance prescribed by [facility] patient has pain rx and medical [...] 18 mg daily start rx 05/14/23 - [facility] on all medications see Neurologist obtain [...] 18 mg daily start rx 05/14/23 - [facility] on all medications see Neurologist obtain [...] drug therapy -no control substance prescribed by [facility] patient has pain rx and medical [...] 18 mg daily start rx 05/14/23 - [facility] on all medications see Neurologist obtain [...] drug therapy -no control substance prescribed by [facility] patient has pain rx and medical [...] 18 mg daily start rx 05/14/23 - [facility] on all medications see Neurologist obtain [...] 18 mg daily start rx 05/14/23 - [facility] on all medications see Neurologist obtain [...] drug therapy -no control substance prescribed by [facility] patient has pain rx and medical [...] patientmonitor kidney function improved per patient labs [facility] Caplyta 42 mg daily eat with medication, mood improved, no hand shaking and cognitive improved, educated on metabolic and movement d/o no control substances prescribed educated on risk monitor for zack all meds go to [facility] and pill pack 2. Tardive dyskinesia - discuss Austedo XR 18 mg daily start rx 05/14/23 - [facility] on all medications see Neurologist obtain [...] drug therapy -no control substance prescribed by [facility] patient has pain rx and medical cannabis 10/01/2024 Dietary counseling and surveillance (ICD-10 - Z71.3) 1. Schizoaffective disorder, bipolar type - monitor for zack and mood stable may add Depakote if have zack discuss with patientmonitor kidney function improved per patient labs [facility] Caplyta 42 mg daily eat with medication, mood improved, no hand shaking and cognitive improved, educated on metabolic and movement d/o no control substances prescribed educated on risk monitor for zack all meds go to [facility] and pill pack 2. Tardive dyskinesia - increase Austedo XR 24 mg daily- reported hands shakes and effects writing start rx 05/14/23 - [facility] on all medications see Neurologist obtain [...] 18 mg daily start rx 05/14/23 - [facility] on all medications see Neurologist obtain [...] drug therapy -no control substance prescribed by [facility] patient has pain rx and medical [...] 18 mg daily start rx 05/14/23 - [facility] on all medications see Neurologist obtain [...] drug therapy -no control substance prescribed by [facility] patient has pain rx and medical [...] 18 mg daily start rx 05/14/23 - [facility] on all medications see Neurologist obtain [...] patientmonitor kidney function improved per patient labs [facility] Caplyta 42 mg daily eat with medication, mood improved, no hand shaking and cognitive improved, educated on metabolic and movement d/o no control substances prescribed educated on risk monitor for zack all meds go to [facility] [employer] and pill pack 2. Tardive dyskinesia - increase Austedo XR 24 mg daily- reported hands shakes and effects writing start rx 05/14/23 - [facility] on all medications see Neurologist obtain [...] drug therapy -no control substance prescribed by [facility] patient has pain rx and medical [...] patientmonitor kidney function improved per patient labs [facility] Caplyta 42 mg daily eat with medication, mood improved, no hand shaking and cognitive improved, educated on metabolic and movement d/o no control substances prescribed educated on risk monitor for zack all meds go to [facility] and pill pack 2. Tardive dyskinesia - increase Austedo XR 24 mg daily- reported hands shakes and effects writing start rx 05/14/23 - [facility] on all medications see Neurologist obtain [...] drug therapy -no control substance prescribed by [facility] patient has pain rx and medical [...] 18 mg daily start rx 05/14/23 - [facility] on all medications see Neurologist obtain [...] 18 mg daily start rx 05/14/23 - [facility] on all medications see Neurologist obtain [...] drug therapy -no control substance prescribed by [facility] patient has pain rx and medical cannabis 11/11/2023 Other mcfp (current) drug therapy (ICD-10 - Z79.899) Medication [...] 18 mg daily start rx 05/14/23 - [facility] on all medications see Neurologist obtain [...] drug therapy -no control substance prescribed by [facility] patient has pain rx and medical cannabis 02/25/2024 Other mcfp (current) drug therapy (ICD-10 - Z79.899) Medication [...] 18 mg daily start rx 05/14/23 - [facility] on all medications see Neurologist obtain [...] drug therapy -no control substance prescribed by [facility] patient has pain rx and medical cannabis 06/11/2024 Other mcfp (current) drug therapy (ICD-10 - Z79.899) Medication [...] 18 mg daily start rx 05/14/23 - [facility] on all medications see Neurologist obtain [...] drug therapy -no control substance prescribed by [facility] patient has pain rx and medical [...] patientmonitor kidney function improved per patient labs [facility] Caplyta 42 mg daily eat with medication, mood improved, no hand shaking and cognitive improved, educated on metabolic and movement d/o no control substances prescribed educated on risk monitor for zack all meds go to [facility] [employer] and pill pack 2. Tardive dyskinesia - increase Austedo XR 24 mg daily- reported hands shakes and effects writing start rx 05/14/23 - [facility] on all medications see Neurologist obtain [...] patientmonitor kidney function improved per patient labs [facility] Caplyta 42 mg daily eat with medication, mood improved, no hand shaking and cognitive improved, educated on metabolic and movement d/o no control substances prescribed educated on risk monitor for zack all meds go to [facility] [employer] and pill pack 2. Tardive dyskinesia - increase Austedo XR 24 mg daily- reported hands shakes and effects writing start rx 05/14/23 - [facility] on all medications see Neurologist obtain [...] drug therapy -no control substance prescribed by [facility] patient has pain rx and medical cannabis 10/01/2024 Other mcfp (current) drug therapy (ICD-10 - Z79.899) Medication Refill: Care Instructions material was published, Medication Refill: Care Instructions material was published 1. Schizoaffective disorder, bipolar type - monitor for zack and mood stable may add Depakote if have zack discuss with patientmonitor kidney function improved per patient labs [facility] Caplyta 42 mg daily eat with medication, mood improved, no hand shaking and cognitive improved, educated on metabolic and movement d/o no control substances prescribed educated on risk monitor for zack all meds go to [facility] and pill pack 2. Tardive dyskinesia - increase Austedo XR 24 mg daily- reported hands shakes and effects writing start rx 05/14/23 - [facility] on all medications see Neurologist obtain [...] drug therapy -no control substance prescribed by [facility] patient has pain rx and medical cannabis 10/01/2024 Negative depression screening (ICD-10 - Z13.31) 1. Schizoaffective disorder, bipolar type - monitor for zack and mood stable may add Depakote if have zack discuss with patientmonitor kidney function improved per patient labs [facility] Caplyta 42 mg daily eat with medication, mood improved, no hand shaking and cognitive improved, educated on metabolic and movement d/o no control substances prescribed educated on risk monitor for zack all meds go to [facility] and pill pack 2. Tardive dyskinesia - increase Austedo XR 24 mg daily- reported hands shakes and effects writing start rx 05/14/23 - [facility] on all medications see Neurologist obtain [...] patientmonitor kidney function improved per patient labs [facility] Caplyta 42 mg daily eat with medication, mood improved, no hand shaking and cognitive improved, educated on metabolic and movement d/o no control substances prescribed educated on risk monitor for zack all meds go to [facility] and pill pack 2. Tardive dyskinesia - discuss Austedo XR 18 mg daily start rx 05/14/23 - [facility] on all medications see Neurologist obtain [...] the [facility] ([facility]) ( ; http://www.robi.ni h.gov/Alzheimers/ ), Notes: referral [...] 18 mg daily start rx 05/14/23 - [facility] on all medications see Neurologist obtain [...] onset Alzheimer's disease with behavioral disturbance -monitor Katina d/c in hospital 6. Long-term drug therapy -no control substance prescribed by [facility] patient has pain rx and medical cannabis Plan Of Treatment Next Appt Details Provider Name:Andreea Layne , 01/01/2025 02:00:00 PM, [address] [facility] [address], [facility] [address], [place], [address], Insurance Providers Payer Name Payer Address Payer Phone Subscriber Number Group Number Insured Name Patient Relationship to Insured Coverage Start Date Coverage End Date Medicare-I l Medicare [address] [place] [address] [id number] TALISHA PRUITT Self - patient is the insured Medicaid-I l Medicaid [address] [address] [place] [address] [id number] TALISHA PRUITT Self - patient is the insured Medical (General) History Medical History History ICD Code Problems: 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
--- OUTSIDE RECORDS SUMMARY | 2024-11-02 10:00 | XMS_ITS | Clinical Summary ---
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 Gender Identity Not on file Sexual Orientation Not on file Plan of Treatment Health Maintenance Due Date Last Done Comments Hepatitis C Virus (HCV) Screening 1955 TdaP Immunization 1955 Cologuard 09/02/1999 Colonoscopy 09/02/1999 Colorectal Cancer Screening 09/02/1999 Immunochemical Fecal Occult Blood 09/02/1999 Pneumococcal Immunization (5 0+ years) (1 of 1 - PCV) 2004 Zoster Immunization (1 of 2) 2004 SARS-COV-2 Immunization (1 - season) 2023 Influenza Immunization (#1) 2024 Respiratory Syncytial Virus (RSV) Immunization (Adult) (1 - 1-dose 75+ series) 2029 Hepatitis B Immunization Aged Out No longer eligible based on patient's age to complete this topic Human Papillomavirus (HPV) Immunization Aged Out No longer eligible b ased on patient's age to complete this topic Meningococcal Immunization (ACWY) Aged Out No longer eligible based on patient's age to complete this topic Rotavirus Immunization Aged Out No lo nger eligible based on patient's age to complete this topic
== END 2024-11-02 09:33 | disposition home or self-care (01) ==
PROVIDERS: PCP Family Medicine; Visit Provider Physician Assistant
DX: R91.1 Solitary pulmonary nodule (principal)
CPT/HCPCS: 71250

== ENCOUNTER 2025-03-02 00:49 | Day surgery (SDC) | payer MEDICARE, MEDICAID, SELFPAY ==
--- OUTSIDE RECORDS SUMMARY | 2025-03-02 00:52 | XMS_ITS ---
Author Name Merlin Lopez Address Unknown Organization [place], [place] Care Team Providers Care Metal Turner Name Role Phone Unavailable Primary Care Physician Unavailab le History Of Present Illness This is a 69 year old male who is being seen for foot evaluation. He was referred by MICHAEL TURPIN (UNKNOWN). Medications Medication Generic Name RxNorm Strength Strength Unit Route Dose Dose Form Frequency Date Started Date Ended Status Indication Sig Ohtuvayre 3781536 3 mg/2.5 mL Inhala tion Suspe nsion for Nebul izati on active amlodipine 077436 5 mg Oral table t active atorvastati n 996125 20 mg Oral table t active Austedo XR 4664473 18 mg Oral Table t, Exten ded Relea se 24 hr active Caplyta 2546228 42 mg Oral capsu le active cyclobenzap rine 193323 10 mg Oral table t active doxycycline hyclate 7693694 100 mg Oral table t active hydrocodone -acetaminop hen 618149 10-325 mg Oral table t active Januvia 836531 50 mg Oral table t active metoclopram theresa HCl 819741 10 mg Oral table t active Movantik 2427585 25 mg Oral table t active ondansetron 235193 4 mg Oral Tabl e t,dis integ ratin g active pregabalin 680759 150 mg Oral capsu le active prucaloprid e 1 mg Oral table t active trazodone 872155 100 mg Oral table t active Vascepa 9105911 1 gram Oral capsu le active Problems Problem Code Type Status Date of Diagnosis Da te of Resolution Onychomycosis caused by dermatophyte (disorder) 467441006(SN OMED) Diagnosis active 03/01/2025 Callosity (disorder) 742027546(SN OMED) Diagnosis active 03/01/2025 Onychomycosis caused by dermatophyte (disorder) 423955833(SN OMED) Diagnosis active 11/30/2024 Callosity (disorder) 139328711(SN OMED) Diagnosis active 11/30/2024 Onychomycosis caused by dermatophyte (disorder) 634355666(SN OMED) Diagnosis active 08/24/2024 Callosity (disorder) 800014947(SN OMED) Diagnosis active 08/24/2024 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) 816133629(SN OMED) Diagnosis active 08/19/2024 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) 258887400(SN OMED) Diagnosis active 06/17/2024 Onychomycosis caused by dermatophyte (disorder) 394485064(SN OMED) Diagnosis active 05/25/2024 Callosity (disorder) 382316245(SN OMED) Diagnosis active 05/25/2024 Onychomycosis caused by dermatophyte (disorder) 250358969(SN OMED) Diagnosis active 02/17/2024 Callosity (disorder) 694450402(SN OMED) Diagnosis active 02/17/2024 Onychomycosis caused by dermatophyte (disorder) 903511654(SN OMED) Diagnosis active 11/18/2023 Diabetes mellitus type 2 (disorder) 89629842(SNO MED) Diagnosis active 11/18/2023 Chronic obstructive pulmonary disease (disorder) 14700861(SNO MED) Problem active Diabetes mellitus (disorder) 30704601(SNO MED) Problem active Results No data Encounters Service provided at [place], [place], [address] [place] [address], [place], [place] [id number]. Office phone number is [phone]. Encounter Diagnosis Location Date / Time Type Onychomycosis (B35.1)Callus, Right (L84) [place], [place] 03/01/2025 21:15:00 UTC NI Reason For Referral No data Procedures Procedure Date Debridement of nail (procedure) 03/01/20 12:00 am UTC Reduction of callus (procedure) 03/01/20 12:00 am UTC Debridement of nail (procedure) 12/01/19 12:00 am UTC Reduction of callus (procedure) 12/01/19 12:00 am UTC Reduction of callus (procedure) 08/25/19 12:00 am UTC Debridement of nail (procedure) 08/25/19 12:00 am UTC Debridement of nail (procedure) 05/25/19 25 12:00 am UTC Reduction of callus (procedure) 05/25/19 25 12:00 am UTC Reduction of callus (procedure) 02/17/20 24 12:00 am UTC Debridement of nail (procedure) 02/17/20 24 12:00 am UTC Debridement of nail (procedure) 11/18/19 24 12:00 am UTC History of operative procedu re on foot (situation) Left ankle impact injury surgery in 1982 Review Of Systems No Data Assessment 1.OnychomycosisToenail Debridement With Findings: Instruments - clippers and electronic rotary gem.2.Callus, RightParing Hyperkeratotic Lesion: right medial plantar 1st toe; Location ClarificationNote - The hyperkeratotic lesion(s) noted is located proximal to the distal interphalangeal joint of a digit and is not associated with nail pathology. They represent a separate treatable condition; Debridement Instrument - a Dremel rotary gem and a 15 blade; Associated Diagnosis (generates associated ICD-10) - diabetes type 2 with polyneuropathy. Plan of Care No data Instructions No Data Social History Code Activity Start Date End Date 9903359 (SNOMED) Former smoker 11/18/1967 11/18/2023 Sex male Sexual orientation Unspecified Gender identity Unspecified Vital Signs Vital Sign Measurement Date Recorded Body Height 68.0 in SatMar 01 21: : [facility] 2024 Body Weight 319.0 lbs SatMar 01: : [facility] 2024 Body Mass Index 48.5 kg/m2 SatMar 01 21: : [facility] 2024
--- OUTSIDE RECORDS SUMMARY | 2025-03-02 00:52 | XMS_ITS | Clinical Summary ---
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
--- OUTSIDE RECORDS SUMMARY | 2025-03-02 00:52 | XMS_ITS | Clinical Summary ---
Author Organization [facility] Physician Office Building 2 Address [address] [place] [address] Care Team Providers Care Carry All Driver Name Role Phone Eladio Kang MD Unavailable [phone] Gloria Gusman MD Unavailable [phone] Judah De DPGloria Unavailable [phone] Jose Miguel Mijares MD Primary Care Provider [phone] Allergies Active Allergy Reactions Criticality Noted Date [...] mouth daily. Active cyanocobalamin/fo lic acid (VITAMIN L67-LIITP ACID ORAL)Indications: Other Take 1 tablet by [...] 03/15/2020 Assessment & Plan (03/15/2020 10:43 AM LINING IRONER): Patient has an unclear history of memory [...] 04/07/2018 Assessment & Plan (04/07/2018 10:20 PM LINING IRONER): Rapid flu positive for influenza B. Patient was started on Tamiflu. COPD exacerbation 04/07/2018 Assessment & Plan (04/07/2018 10:29 PM LINING IRONER): Secondary to influenza B. Patient has clear sputum. No need for antibiotics. Will continue with IV steroids and breathing treatments. Schizoaffective disorder, bipolar type 8 Assessment & Plan (03/15/2020 10:36 AM LINING IRONER): Patient continues to display distractibility, irritability, tangential speech consistent with hypomania. Also displaying poor memory, unclear if it is due to poor attention or evidence of dementia. Of note, patient is still receiving Klonopin TID. Current episodes appears to be precipitated by decreased dosage of [place]. Patient declining to sign in voluntary at this time and does not meet criteria for 21 day hold at this time. Will likely be discharged today at a hypermanic state. Continue [place] 900mg QHS and Seroquel 200mg at discharge. Will follow up with PCP and outpatient provider to monitor kidney function and lithium level. - Continue [place] 900mg ER QHS on discharge - Continue Seroquel 200mg on discharge - Contine Klonopin 0.25mg TID x 3 day, followed by Klonpin 0.25mg daily x 3 days to complete taper - [place] level 0.4, repeat level in 1 week. Assessment & Plan (03/14/2020 1:15 PM LINING IRONER): Patient continues to display distractibility, irritability, tangential speech consistent with hypomania. Current episodes appears to be precipitated by decreased dosage of [place]. Will continue [place] at 450mg last night, will check troph tonight. Will continue Klonopin at 0.25mg for titration. Patient declining to sign in voluntary at this time and does not meet criteria for 21 day hold at this time. Will likely be discharged tomorrow at a hypermanic state. Will ensure outpatient follow up before discharge - Continue [place] 450mg ER QHS, check troph before tonight's night dose - Continue Seroquel 150mg - Contine Klonopin 0.25mg TID, outpatient provider to continue taper Assessment & Plan (03/12/2020 10:45 AM LINING IRONER): Patient continues to display distractibility, irritability, tangential speech consistent with hypomania. Current episodes appears to be precipitated by decreased dosage of [place]. [place] started at 450mg last night, will continue at this dose at this time due to reduced kidney function and check troph before Saturday dose. Will slowly titrate down Klonopin due to unclear utilization by patient. - Continue [place] 450mg ER QHS, check troph before Saturday night dose - Continue Seroquel 150mg - Contine Klonopin 0.5mg TID, will decrease to 0.25mg Saturday Assessment & Plan (03/11/2020 2:02 PM LINING IRONER): Patient continues to display distractibility, irritability, tangential speech consistent with hypomania. Current episodes appears to be precipitated by decreased dosage of [place]. [place] started at 450mg last night, will continue at this dose at this time due to reduced kidney function and check troph before Saturday dose. Will slowly titrate down Klonopin due to unclear utilization by patient. - Continue [place] 450mg ER QHS, check troph before Saturday night dose - Continue Seroquel 150mg - Decrease to Klonopin 0.5mg TID to continue taper Assessment & Plan (04/07/2018 10:19 PM LINING IRONER): Home medications have been resumed. We do not have ingrezza and patient was advised that he can have his sister bring in his home medication. Patient can resume medication once and has been verified with pharmacy. Tobacco dependence 04/07/2018 Assessment & Plan (04/07/2018 10:18 PM LINING IRONER): Patient has a history of smoking 1 pack per day for 52 years. He states he quit yesterday because he was scared that he could not breathe. Patient is okay with a nicotine patch at this time. FLORA on CPAP 04/07/2018 Assessment & Plan (03/09/2020 11:57 PM LINING IRONER): -On FLORA precautions -Ordered home CPAP Assessment & Plan (04/07/2018 10:20 PM LINING IRONER): CPAP has been ordered q.h.s.. CKD (chronic kidney disease) stage 3, GFR 30-59 ml/min 04/07/2018 Assessment & Plan (03/15/2020 10:28 AM LINING IRONER): Cr 1.65 on admission, baseline 1.38 - 1.40. Repeat Cr 1.41, consistent with patient's baseline - Elevated Cr on admission likely due to acute on chronic kidney injury in the setting of poor intake - Last Cr 1.47 - Holding Lisinopril on discharge - Follow up BMP on discharge Assessment & Plan (03/14/2020 1:10 PM LINING IRONER): Cr 1.65 on admission, baseline 1.38 - 1.40. Repeat Cr 1.41, consistent with patient's baseline - Elevated Cr on admission likely due to acute on chronic kidney injury in the setting of poor intake - Last Cr 1.47 1.47 - Continue q48 BMP - Holding Lisinopril Assessment & Plan (03/12/2020 10:44 AM LINING IRONER): Cr 1.65 on admission, baseline 1.38 - 1.40 - Cr 1.41 on recent BMP, consistent with patient's baseline - Elevated Cr on admission likely due to acute on chronic kidney injury in the setting of poor intake - Continue q48 BMP - Holding Lisinopril Assessment & Plan (03/11/2020 1:50 PM LINING IRONER): Cr 1.65 on admission, baseline 1.38 - 1.40 - Cr 1.40 on recent BMP, consistent with patient's baseline - Elevated Cr on admission likely due to acute on chronic kidney injury in the setting of poor intake - Continue q48 BMP - Holding Lisinopril Assessment & Plan (04/07/2018 10:20 PM LINING IRONER): Creatinine appears to be stable from 2012. Will avoid any unnecessary nephrotoxins. Continue to monitor. Acute respiratory failure with hypoxia 8 Assessment & Plan (04/07/2018 10:26 PM LINING IRONER): Likely secondary to COPD exacerbation and influenza. [...] UNCNTRLD Assessment & Plan (03/15/2020 10:37 AM LINING IRONER): BG 116 - Home Januvia 50 mg Assessment & Plan (03/14/2020 1:15 PM LINING IRONER): BG 143 -Ordered home Januvia 50 mg -QID Acuchecks Assessment & Plan (03/12/2020 10:45 AM LINING IRONER): BG 143 -Ordered home Januvia 50 mg -QID Acuchecks Assessment & Plan (03/10/2020 12:00 AM LINING IRONER): BG 143 -Ordered home Januvia 50 mg -QID Acuchecks -Could change to SSI Assessment & Plan (04/07/2018 10:17 PM LINING IRONER): Patient is on Januvia at home which has been resumed. Patient is also on a low- dose sliding scale. Will continue to monitor but patient will likely need adjustments of insulin due to IV steroids COPD (chronic obstructive pulmonary disease) Assessment & Plan (03/15/2020 10:28 AM LINING IRONER): - Continue home Symbicort & prn duo-nebs w/ RT Assessment & Plan (03/14/2020 1:10 PM LINING IRONER): - Continue home Symbicort & prn duo-nebs w/ RT Assessment & Plan (03/12/2020 10:44 AM LINING IRONER): - Continue home Symbicort & prn duo-nebs w/ RT Assessment & Plan (03/11/2020 1:51 PM LINING IRONER): -Continue home Symbicort & prn duo-nebs HTN (hypertension) Assessment & Plan (03/15/2020 10:28 AM LINING IRONER): BP 149/94 this morning - Restart home amlodipine 5mb - Holding home lisinopril 10 (monitoring kidney function) - Follow-up with PCP about restarting Assessment & Plan (03/14/2020 1:12 PM LINING IRONER): BP 149/94 this morning - Restart home amlodipine 5mb - Holding home lisinopril 10 (monitoring kidney function) - Follow-up with PCP about restarting Assessment & Plan (03/12/2020 10:45 AM LINING IRONER): BP 113/69 - Holding home lisinopril 10 (monitoring kidney function) - Holding home amlodipine 5 (soft BP) - Follow-up with PCP about restarting Assessment & Plan (03/11/2020 1:54 PM LINING IRONER): BP 113/69 - Holding home lisinopril 10 (monitoring kidney function) - Holding home amlodipine 5 (soft BP) HLD (hyperlipidemia) Assessment & Plan (03/15/2020 10:28 AM LINING IRONER): History of HLD on atorvastatin and vascepa. Lipid panel shows low HDL (36), normal LDL (37) and high triglycerides (273) -Continued home atorvastatin 20 mg -Held Vascepa 1g QID (not available in hospital), continue on discharge Assessment & Plan (03/14/2020 1:10 PM LINING IRONER): History of HLD on atorvastatin and vascepa. Lipid panel shows low HDL (36), normal LDL (37) and high triglycerides (273) -Continued home atorvastatin 20 mg -Held Vascepa 1g QID (not available in hospital), continue on discharge Assessment & Plan (03/12/2020 10:44 AM LINING IRONER): History of HLD on atorvastatin and vascepa. Lipid panel shows low HDL (36), normal LDL (37) and high triglycerides (273) -Continued home atorvastatin 20 mg -Held Vascepa 1g QID (not available in hospital), continue on discharge Assessment & Plan (03/11/2020 1:54 PM LINING IRONER): History of HLD on atorvastatin and vascepa. [...] History Medical History Date Comments Diabetes mellitus Diabetes Hx Other Medical 2012 Bipap Hx Other Medical 1978 Shitzo affectiv e Bi polar type Difficulty walking Bipolar disorder Obstructive sleep apnea COPD (chronic obstructive pulmonary disease) Family History Medical History Relation Name Comments Coronary artery disease Brother Blake nary artery disease; Coronary artery disease Father Blake nary artery disease; Diabetes Mother Diabetes mellit ; Relation Name Status Comments Brother Father Mother Social History Tobacco Use Types Packs/Day Years Used Date Smoking Tobacco: Every Day Cigarettes 1 5.2 Started: 12/08/2019 Smokeless Tobacco: Never Tobacco Cessation:Ready [...] on file Legal Sex Male 3:08 AM LINING IRONER Gender Identity Not on file Sexual Orientation Not on file Occupation Industry Job Start Date Job End Date disabled Not on file Not on file Not on file Last Filed Vital Signs Vital Sign Reading Time Taken Comments Blood Pressure 165/72 03/21/2023 1:00 PM LINING IRONER Pulse 51 03/21/2023 1:00 PM LINING IRONER Temperature 36.6 C (97.9 F) 03/21/2023 8:04 AM LINING IRONER Respiratory Rate 14 03/21/2023 9:15 AM LINING IRONER Oxygen Saturation 92% 03/21/2023 1:00 PM LINING IRONER Inhaled Oxygen Concentration - - Weight 131.9 kg (290 lb 11.2 oz) 03/21/2023 8:04 AM LINING IRONER Height 172.7 cm (5' 8) 03/21/2023 8:04 AM LINING IRONER Body Mass Index 44.2 03/21/2023 8:04 AM LINING IRONER Plan of Treatment Health Maintenance Due Date [...] Cancer Screening-Colonoscopy 11/13/2022 11/13/2012 Influenza Vaccine (#1) 2024 01/07/2020 Hemoglobin A1C 12/19/2024 06/18/2024, 06/06, 06/15/2024, Additional history exists Lipid Panel 06/15/2025 06/15/2024, 11/07, 07/04/2020, Additional history exists eGFR 06/18/2025 06/18/2024, 06/06, 06/15/2024, Additional history exists Colon Cancer Screening-CT Colonography Discontinued 11/13/2012 Colon Cancer Screening-DNA Stool Discontinued 11/14/19 Colon Cancer Screening-FIT Discontinued 11/13/2012 Colon Cancer Screening-Sigmoidoscopy Discontinued 11/13/2012 Prostate Cancer Screening-PSA Discontinued , 11/27/2023, 06/27/2023 Procedures Procedure Name Priority Date/Time Associated Diagnosis Comments EGFR Routine 06/18/2024 12:05 PM CDT HEMOGLOBIN A1C Routine 06/18/2024 12:05 PM CDT LIPID PANEL Routine 06/15/2024 10:47 AM CDT PSA SCREEN Routine 06/15/2024 10:47 AM CDT COLONOSCOPY REPORT [...] ORDERABLES Final Re sult Performing Organization Address City/[facility] Co de Phone Number [facility] (CORNEL[place]) [address] [facility] [place] [address] * Hemoglobin A1c (06/18/2024 12:05 PM CDT) Hgb A1C 5.2 4.0 - 5.6 % Estimated Average Glucose 103 mg/dL [facility] (C[place]EL[place]) Comment: The ADA recommends reporting an estimated Average Glucose (eAG) with all Hemoglobin A1c results using the equation derived from a study of 507 normal and diabetic adults. Minority populations were underrepresented and children were not included. (Diabetes Care 31:0220-4717, 2008). The eAG is not equivalent to a fasting glucose. Blood 06/18/2024 12:0 5 PM CDT 06/18/2024 12:26 PM CDT Eladio Kang MD LAB BLOOD ORDERABLES Final Re sult [facility] ([place]) [address] [facility] [place] [address] * PSA screen (06/15/2024 10:47 AM CDT) [...] BLOOD ORDERABLES Sherry bailey Result [facility] (CORNELI[place]) [address] [facility] Department [place] [address] * Lipid panel (06/15/2024 10:47 AM CDT) [...] mg/dL High: >160 mg/dL Calculated using the Song LDL-C estimating equation. This equation was implemented [...] on 2023. Non-HDL Cholesterol 100 mg/dL [facility] (DERREK) Comment: Interpretive Data [...] last revised on 2017. Chol/HDL ratio 3 RITESH Yi [facility] ([place]) Blood 06/15/2024 10:4 7 AM CDT 06/15/2024 10:59 AM CDT us Jose Miguel Mijares MD LAB BLOOD ORDERABLES Sherry l Result [facility] (CORNELI[place]) [address] [facility] Department [place] [address] * COLONOSCOPY REPORT (11/13/2012) Anatomical Region Laterality Modality Other Narrative 11/13/2012 Ordered by an unspecified provider. us Historical Provider GI PROCEDURE ORDERABLES F inal Result from Last 3 Months or Most Recently Relevant to Health Maintenance Insurance MEDICARE [employer] MEDICARE [facility] MEDICARE [facility] MEDICARE [employer] Advance Directives For more information, please contact: [phone] * Full Code (Latest Code Status on File) Date Activated Date Inactivated Comments 03/09/2020 9:39 PM 03/16/2020 1:42 AM * Full Code Date Activated Date Inactivated Comments 04/07/2018 10:16 PM 04/14/2018 7:02 PM Care Teams Carry All Driver Relationship Specialty Start Date End Date Jose Miguel Mijares MD [address] [place] [address] [place] [address] PCP - General Family Practice 03/21/23 Eladio Kang MD Consulting Physician Nephrology 04/14/18 Gloria Gusman MD [address] [place] [address] [place] [address] Pulmonary Disease 04/14/18 Judah De, KAR[address] [place] [address] Consulting Physician Foot and Ankle Surg 04/14/18
[2025-03-02 10:20] VITALS: BP 126/92; PULSE 70; RESP 18; TEMP 36.6; O2SAT 93; BMI 48.9
[2025-03-02] MEDS: LACTATED RINGERS 1,000 ML 150 ML IV CONT (10:38)
--- NOTE | 2025-03-02 10:49 | WPDANESEPPF ---
Anes - Initial Pre Proc Eval Procedure: Operation Date: 03/02/25 11:30 Proposed Procedures p Esophagogastroduodenoscopy - Azael Orta MD Date/Time: 03/02/25 10:49 Surgeon: Azael Orta MD Pre Op Diagnosis: Esophagitis, unspecified without bleeding Patient Data Age: 69 Gender: M Height: 1.73 m Weight: 146 kg Last Vital Signs Temp 98 F 03/02/25 10:20 Pulse 70 03/02/25 10:20 Resp 18 03/02/25 10:20 BP 126/92 H 03/02/25 10:20 Pulse Ox 93 03/02/25 10:20 O2 Del Method Nasal Cannula 03/02/25 10:20 O2 Flow Rate 1 03/02/25 10:20 Allergies Allergy/AdvReac Type Severity Reaction Status Date / Time No Known Allergies Allergy Verified 03/02/25 10:17 Home Medications ?Medication ?Instructions ?Recorded ?Confirmed ?Type [place] 18 mg PO BID 09/19/20 03/02/25 History lumateperone 42 mg capsule 42 mg PO DAILY 05/31/21 03/02/25 History (Caplyta) hydrocodone 10 mg-acetaminophen 1 tablet PO Q6H PRN pain 07/21/21 02/11/25 History 325 mg tablet albuterol sulfate 90 mcg/actuation See Rx Instructions .Route 09/12/22 02/11/25 Rx aerosol inhaler .COMPLEX #8.5 ea lancets 28 gauge (TRUEplus Lancets) #300 ea 08/16/23 12/16/24 Rx icosapent ethyl 1 gram capsule See Rx Instructions .Route 02/21/24 03/02/25 Rx (Vascepa) .COMPLEX #180 caps blood sugar diagnostic (Contour #100 ea 06/29/24 12/16/24 Rx Next Test Strips) albuterol sulfate 2.5 mg/3 mL See Rx Instructions .Route 07/06/24 03/02/25 Rx (0.083 %) solution for nebulization .COMPLEX #180 mL arformoterol 15 mcg/2 mL solution See Rx Instructions .Route 07/09/24 03/02/25 Rx for nebulization .COMPLEX #120 mL budesonide 0.5 mg/2 mL suspension See Rx Instructions .Route 07/09/24 03/02/25 Rx for nebulization .COMPLEX #120 mL metoclopramide HCl 10 mg tablet 10 mg PO Q6H PRN nausea and 08/06/24 02/11/25 Rx (Reglan) vomiting #14 tabs ondansetron 4 mg disintegrating 4 mg PO Q12H PRN nausea and 08/25/24 02/11/25 Rx tablet vomiting #20 tabs omeprazole 40 mg capsule,delayed 40 mg PO DAILY #30 caps 08/27/24 03/02/25 Rx release docusate sodium 100 mg tablet 100 mg PO BID #60 tabs 09/22/24 03/02/25 Rx (Stool Softener) prucalopride 2 mg tablet 2 mg PO DAILY #30 tabs 09/22/24 02/11/25 Rx (Motegrity) aspirin 81 mg tablet 81 mg PO DAILY 10/07/24 03/02/25 History coenzyme Q10 100 mg capsule (Co 100 mg PO DAILY 10/07/24 03/02/25 History Q-10) finger splint 10/07/24 12/16/24 History gato/tumeric 1 cap PO DAILY 10/07/24 03/02/25 History lutein 6 mg capsule 6 mg PO DAILY 10/07/24 03/02/25 History mecobalamin (vitamin B12) 2,500 2,500 mcg PO DAILY 10/07/24 03/02/25 History mcg chewable tablet sitagliptin phosphate 50 mg tablet 50 mg PO DAILY #90 tabs 10/26/24 03/02/25 Rx (Januvia) ipratropium bromide 0.02 % See Rx Instructions .Route 11/09/24 02/11/25 Rx solution for inhalation .COMPLEX #300 mL ensifentrine 3 mg/2.5 mL 2.5 ml inhalation BID #150 mL 12/16/24 03/02/25 Rx suspension for nebulization (Ohtuvayre) amlodipine 5 mg tablet See Rx Instructions .Route 02/08/25 03/02/25 Rx .COMPLEX #90 tabs atorvastatin 20 mg tablet See Rx Instructions .Route 02/08/25 03/02/25 Rx .COMPLEX #90 tabs pregabalin 150 mg capsule 150 mg PO BID #60 caps 02/22/25 03/02/25 Rx Laboratory Tests 03/02/25 10:35 POC Capillary Glucose 106 H mg/dl (65-105) Patient hx anesthesia problems: none Family hx anesthesia problems: none Results Review: All pre-operative results and documents have been reviewed as part of the pre-operative evaluation. 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 Hypertension Diabetes Depression Anxiety Schizophrenia Surgical History Surgical History H/O foot surgery Left foot in [id number] Family History Family History Mother Diabetes mellitus DVT (deep venous thrombosis) Sibling Cancer of brain Social History Social History Smoking packs per day: 2 Smoking cigarettes per day: 40.0 Years smoked: 53 Smoking pack-years: 106.00 Smoking status: Former smoker Tobacco type: cigarettes Smoking end date: 04/23/22 Alcohol intake: former Substance use: never Substance use type: does not use Other substance usage details: HEMP Current Housing: Decline to Answer Concerned About Future Housing: Decline to Answer Difficulty Paying Gas/Electric Bills: Decline to Answer Difficulty Paying for Meds: Decline to Answer Currently Unemployed: Decline to Answer Education: Decline to Answer Difficulty w/ Childcare or Family Care: Decline to Answer Living arrangements: alone Additional living arrangements comments: caregiver at home Gender identity (if verbalized by the patient): Male Spiritual care concerns: No Anes - Eval Final PreProcedure Day of Procedure 03/02/25 10:49 Patient weight: morbidly obese Heart: regular rate and rhythm Lungs: normal air movement and decreased breath sounds Airway: Mallampati scale class II and special considerations (Edentulous. ) Neurological: alert and oriented Last oral intake: >/= 8 hours ASA classification: IV Emergent: no Anesthetic plan: proceed Anesthesia type and monitoring: general GIVS and standard monitoring Results Review: All pre-operative results and documents have been reviewed as part of the pre-operative evaluation. Complicated pt w severe COPD on home O2, FLORA on CPAP, DM for repeat EGD. Informed Consent: The patient's anesthetic plan and its attendant risks and benefits were discussed with the patient/family/POA. Questions were solicited and answers provided to the satisfaction of the patient/family/POA.
--- NOTE | 2025-03-02 11:06 | PM.HPGS ---
History of Present Illness History of Present Illness Consent: Risks, benefits, and alternatives have been discussed and questions answered. Patient agrees to proceed with procedure. Chief complaint: Esophagitis, unspecified without bleeding Narrative: Suhail Velásquez is a 69 year old male here for another egd, last one 08/2024 with santos's and stricture that required balloon dilation up to 13.5mm, doing better. 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 Hypertension Diabetes Depression Anxiety Schizophrenia Surgical History Surgical History H/O foot surgery Left foot in [id number] Family History Family History Mother Diabetes mellitus DVT (deep venous thrombosis) Sibling Cancer of brain Social History Social History Smoking packs per day: 2 Smoking cigarettes per day: 40.0 Years smoked: 53 Smoking pack-years: 106.00 Smoking status: Former smoker Tobacco type: cigarettes Smoking end date: 04/23/22 Alcohol intake: former Substance use: never Substance use type: does not use Other substance usage details: HEMP Current Housing: Decline to Answer Concerned About Future Housing: Decline to Answer Difficulty Paying Gas/Electric Bills: Decline to Answer Difficulty Paying for Meds: Decline to Answer Currently Unemployed: Decline to Answer Education: Decline to Answer Difficulty w/ Childcare or Family Care: Decline to Answer Living arrangements: alone Additional living arrangements comments: caregiver at home Gender identity (if verbalized by the patient): Male Spiritual care concerns: No Meds Home Medications and Allergies Home Medications ?Medication ?Instructions ?Recorded ?Confirmed ?Type Austedo 18 mg PO BID 09/19/20 03/02/25 History lumateperone 42 mg capsule 42 mg PO DAILY 05/31/21 03/02/25 History (Caplyta) hydrocodone 10 mg-acetaminophen 1 tablet PO Q6H PRN pain 07/21/21 02/11/25 History 325 mg tablet albuterol sulfate 90 mcg/actuation See Rx Instructions .Route 09/12/22 02/11/25 Rx aerosol inhaler .COMPLEX #8.5 ea lancets 28 gauge (TRUEplus Lancets) #300 ea 08/16/23 12/16/24 Rx icosapent ethyl 1 gram capsule See Rx Instructions .Route 02/21/24 03/02/25 Rx (Vascepa) .COMPLEX #180 caps blood sugar diagnostic (Contour #100 ea 06/29/24 12/16/24 Rx Next Test Strips) albuterol sulfate 2.5 mg/3 mL See Rx Instructions .Route 07/06/24 03/02/25 Rx (0.083 %) solution for nebulization .COMPLEX #180 mL arformoterol 15 mcg/2 mL solution See Rx Instructions .Route 07/09/24 03/02/25 Rx for nebulization .COMPLEX #120 mL budesonide 0.5 mg/2 mL suspension See Rx Instructions .Route 07/09/24 03/02/25 Rx for nebulization .COMPLEX #120 mL metoclopramide HCl 10 mg tablet 10 mg PO Q6H PRN nausea and 08/06/24 02/11/25 Rx (Reglan) vomiting #14 tabs ondansetron 4 mg disintegrating 4 mg PO Q12H PRN nausea and 08/25/24 02/11/25 Rx tablet vomiting #20 tabs omeprazole 40 mg capsule,delayed 40 mg PO DAILY #30 caps 08/27/24 03/02/25 Rx release docusate sodium 100 mg tablet 100 mg PO BID #60 tabs 09/22/24 03/02/25 Rx (Stool Softener) prucalopride 2 mg tablet 2 mg PO DAILY #30 tabs 09/22/24 02/11/25 Rx (Motegrity) aspirin 81 mg tablet 81 mg PO DAILY 10/07/24 03/02/25 History coenzyme Q10 100 mg capsule (Co 100 mg PO DAILY 10/07/24 03/02/25 History Q-10) finger splint 10/07/24 12/16/24 History gato/tumeric 1 cap PO DAILY 10/07/24 03/02/25 History lutein 6 mg capsule 6 mg PO DAILY 10/07/24 03/02/25 History mecobalamin (vitamin B12) 2,500 2,500 mcg PO DAILY 10/07/24 03/02/25 History mcg chewable tablet sitagliptin phosphate 50 mg tablet 50 mg PO DAILY #90 tabs 10/26/24 03/02/25 Rx (Januvia) ipratropium bromide 0.02 % See Rx Instructions .Route 11/09/24 02/11/25 Rx solution for inhalation .COMPLEX #300 mL ensifentrine 3 mg/2.5 mL 2.5 ml inhalation BID #150 mL 12/16/24 03/02/25 Rx suspension for nebulization (Ohtuvayre) amlodipine 5 mg tablet See Rx Instructions .Route 02/08/25 03/02/25 Rx .COMPLEX #90 tabs atorvastatin 20 mg tablet See Rx Instructions .Route 02/08/25 03/02/25 Rx .COMPLEX #90 tabs pregabalin 150 mg capsule 150 mg PO BID #60 caps 02/22/25 03/02/25 Rx Allergies Allergy/AdvReac Type Severity Reaction Status Date / Time No Known Allergies Allergy Verified 03/02/25 10:17 Vital Signs Vital Signs - 24 hr 03/02/25 10:20 Temperature 98 F Pulse Rate 70 Respiratory Rate 18 Blood Pressure 126/92 H Pulse Oximetry 93 Oxygen Delivery Nasal Cannula Oxygen Flow Rate 1 Exam Const: General: comfortable and no acute distress HENMT: Face/Nose/Sinus: Normal nares present Eyes: General: appearance normal, both eyes and all related structures Neck: Neck: no JVD Resp: Auscultation: clear to auscultation bilaterally Cardio: Rate: regular rate Rhythm: regular rhythm GI: Inspection: non-distended GI Palp: Yes Soft to palpation Skin: General skin exam: normal color Extrem: General: normal to inspection Psych: Mental Status: mental status grossly normal Assessment and Plan Assessment and plan (1) GERD (gastroesophageal reflux disease): Code(s): K21.9 - Gastro-esophageal reflux disease without esophagitis Status: Acute Assessment and Plan: egd with bx on ppi daily (2) Santos's esophagus with esophagitis: Code(s): K22.70 - Santos's esophagus without dysplasia; K20.90 - Esophagitis, unspecified without bleeding Status: Acute
--- NOTE | 2025-03-02 11:10 | S_PTH ---
PATIENT: Suhail Velásquez LOC: [facility]#:[id number] AGE/SX: 69/M ROOM: RE03/02/[address]: Azael Orta MD : 1955 BED: DIS: 03/02/2025 SPEC #: [id number] RECD: 03/02/25 11:47 STATUS: ELLEN REQ #: [id number] JOSH: 03/02/25 11:[address]: Azael Orta DEPT: [facility] Surgical RECD BY: Vidal Mendoza ENTERED: 03/02/25 11:47 SP TYPE: Surgical OTHR DR: Jose Miguel Mijares MD Tissues: A - Esophageal Biopsy Procedures: Hematoxylin and Eosin Stain Gross and Microscopic Level 4
[2025-03-02 11:18] VITALS: BP 136/79; PULSE 73; RESP 25; O2SAT 94
[2025-03-02 11:28] VITALS: BP 137/82; PULSE 82; RESP 23; O2SAT 95
[2025-03-02 11:38] VITALS: BP 131/85; PULSE 73; RESP 22; O2SAT 94
== END 2025-03-02 11:47 | disposition home or self-care (01) ==
PROVIDERS: PCP Family Medicine; Referring Provider Nurse Practitioner Family; Visit Provider Internal Medicine Gastroenterology
PROC: 0DJ08ZZ Inspection of Upper Intestinal Tract, Via Natural or Artificial Opening Endoscopic (ICD-10-PCS; CPT 43239; principal; 2025-03-02 11:30)
DX: K22.70 Barrett's esophagus without dysplasia (principal); K21.9 Gastro-esophageal reflux disease without esophagitis; K44.9 Diaphragmatic hernia without obstruction or gangrene; E78.5 Hyperlipidemia, unspecified; I10 Essential (primary) hypertension; E11.9 Type 2 diabetes mellitus without complications; F41.9 Anxiety disorder, unspecified; F20.9 Schizophrenia, unspecified; G47.33 Obstructive sleep apnea (adult) (pediatric); J44.9 Chronic obstructive pulmonary disease, unspecified; F31.9 Bipolar disorder, unspecified; M12.572 Traumatic arthropathy, left ankle and foot; F12.90 Cannabis use, unspecified, uncomplicated; E66.01 Morbid (severe) obesity due to excess calories; Z68.42 Body mass index [BMI] 45.0-49.9, adult; Z79.891 Long term (current) use of opiate analgesic; Z79.51 Long term (current) use of inhaled steroids; Z79.82 Long term (current) use of aspirin; Z79.84 Long term (current) use of oral hypoglycemic drugs; Z99.81 Dependence on supplemental oxygen; Z99.89 Dependence on other enabling machines and devices; Z98.890 Other specified postprocedural states; Z87.891 Personal history of nicotine dependence; Z80.8 Family history of malignant neoplasm of other organs or systems
CPT/HCPCS: 43239; 82948; 88305; J2003; J2704; J7120